=== PATIENT | male | born 1965 | race African-American/Black ===

== ENCOUNTER 2020-01-31 15:26 | Emergency (ER) | payer MEDICAID, SELFPAY ==
[2020-01-31 16:05] VITALS: BP 148/94; PULSE 79; RESP 16; TEMP 36.6; O2SAT 98; BMI 22.4
--- NOTE | 2020-01-31 16:17 | ED_ITS ---
HPI - General Adult General Chief complaint: General Medical Stated complaint: med refill Time Seen by Provider: 01/31/20 16:07 Source: patient Mode of arrival: ambulatory History of Present Illness HPI narrative: 54-year-old male presenting to ED for trazodone refill. Reports was recently in detox, now at [facility], does not have doctors around here, last filled at [place] 1 month ago. Per EMR last filled 12/04/2019. Reports last dose taken yesterday. Denies SI/HI. Denies alcohol or drug use Onset (ago): day(s) Related Data Previous Rx's Medication Instructions Recorded trazodone 50 mg PO BEDTIME 30 Days #30 tab 01/31/20 Allergies Allergy/AdvReac Type Severity Reaction Status Date / Time No Known Allergies Allergy Verified 01/31/20 16:17 Review of Systems Review of Systems: Constitutional: No Weight loss, No Fever, No Chills Cardiovascular: No Chest Pain, No SOB Respiratory: No Cough Skin: No Skin Lesions, No rash Psych: No SI/HI/ETOH/illicit drug use Yes all other systems are reviewed and are negative [facility] Past Medical History Attestation statement: The following information was validated with the patient. Medical History (Updated 01/31/20 @ 16:18 by NICKO Langford) No known health problems Social History Social History Alcohol intake: former Smoked in Last 30 Days: No Use of substances other than those prescribed or required for medical reasons: No Advance Directives: No Advance Directives Information Provided: Yes Physical Exam Vital Signs: Vital Signs: Last Vital Signs Temp 97.9 F 01/31/20 16:05 Pulse 79 01/31/20 16:05 Resp 16 01/31/20 16:05 BP 148/94 H 01/31/20 16:05 Pulse Ox 98 01/31/20 16:05 Body Mass Index 22.4 Const: General: cooperative and healthy appearing Orienta tion/consciousness: patient oriented x3 Limitations: no limitations HENMT: Head: Yes normal to inspection Ears: hearing grossly normal bilaterally General nose exam: Normal external nose present Face and sinus: Yes normal facial exam Eyes: General: appearance normal, both eyes and all related structures EOM: EOMs intact bilaterally Neck: Neck: Yes normal visual inspection Resp: Effort & Inspection: normal respiratory effort Skin: Rashes: no rashes Wounds: no wounds Neuro: General: patient oriented x3 Gait exam (Neuro): Normal gait present Extrem: General: Yes normal to inspection Discharge Plan Discharge Clinical Impression: Medication refill Patient Disposition: Home, Self-Care Instructions: Medicine Refill (ED) Additional Instructions: Continue taking previously prescribed dosage of trazodone Follow-up with [facility] Room for establishment with a primary care doctor/psychiatrist/psychologist Prescriptions: New trazodone 50 mg tablet 50 mg PO BEDTIME 30 Days Qty: 30 RF: 0 Referrals: Erin Harrison MD [Physician] - 2 days
== END 2020-01-31 17:00 | disposition home or self-care (01) ==
PROVIDERS: Emergency Provider Emergency Medicine
DX: Z76.0 Encounter for issue of repeat prescription (principal); Z87.891 Personal history of nicotine dependence; Z79.899 Other long term (current) drug therapy
CPT/HCPCS: 99282; 99284

== ENCOUNTER 2022-02-17 09:15 | Emergency (ER) | payer MEDICAID, SELFPAY ==
--- NOTE | ~2022-02-17 | CT_ITS ---
EXAMINATION: CT HEAD WITHOUT CONTRAST CLINICAL INFORMATION: Seizure. COMPARISON: No relevant prior imaging. TECHNIQUE: Contiguous axial imaging was performed from the skull base to vertex without intravenous administration of contrast. This CT examination was performed using dose optimization techniques as appropriate, variously including the following: *Automated exposure control *Adjustment of mA and/or kV according to patient size (this includes techniques or standardized protocols for targeted exams where dose is matched to indication/reason for exam; i.e. extremities or head) *Use of iterative reconstruction technique DLP: 673 mGy-cm FINDINGS: There is no acute intracranial hemorrhage or abnormal extra-axial collection. No intracranial mass effect or midline shift. Lateral and third ventricles are normal. No hydrocephalus. Vera-white matter differentiation is grossly preserved and there is no evidence of acute territorial infarct. The calvarium and skull base are intact. Mastoid air cells and middle ear cavities are well aerated. Mild paranasal sinus disease primarily affecting the ethmoid air cells CT/CT head/brain wo IV con IMPRESSION: Unremarkable CT scan of the head. No evidence of acute territorial infarct or hemorrhage.
[2022-02-17 09:24] VITALS: BP 143/102; PULSE 117; O2SAT 96
--- NOTE | 2022-02-17 09:43 | ECG_ITS ---
Test Reason : seizure Blood Pressure : / mmHG Vent. Rate : 092 BPM Atrial Rate : 092 BPM P-R Int : 154 ms QRS Dur : 096 ms QT Int : 364 ms P-R-T Axes : 072 029 035 degrees QTc Int : 450 ms Normal sinus rhythm Normal ECG No previous ECGs available Referred By: Juan Ng Electronically Signed By:KEESHA BERKOWITZ
[2022-02-17 09:45] VITALS: BP 144/102; PULSE 101; RESP 18; TEMP 36.4; O2SAT 93; BMI 21.8
--- NOTE | 2022-02-17 09:55 | ED_ITS ---
HPI - Seizure General Chief Complaint: Seizure Stated Complaint: SZ,?WITHDRAWAL FROM [facility] PER EMS Time Seen by Provider: 02/17/22 09:31 Source: patient and EMS Mode of arrival: EMS Limitations: no limitations History of Present Illness HPI Narrative: This is a 56 years old male with history of alcohol abuse presented to the emergency room via ambulance after a seizure, he is awake and alert now he admits drinking alcohol. The denies any fever chills MD complaint: seizure Onset (ago): hour(s) (1) Description of Episode: tonic-clonic movement Witnessed: No Trauma: No Seizure History: No Possible Precipitating Event: alcohol withdrawal Associated symptoms: denies other symptoms Related Data Previous Rx's Medication Instructions Recorded trazodone 50 mg tablet 50 mg PO BEDTIME 30 days #30 tabs 01/31/20 chlordiazepoxide HCl 25 mg capsule 25 mg PO Q8-12H PRN alcohol 02/17/22 withdrawal #5 caps Allergies Allergy/AdvReac Type Severity Reaction Status Date / Time No Known Allergies Allergy Verified 01/31/20 16:17 Review of Systems Constitutional: Constitutional: Reports no additional constitutional complaints ENT: Reports system reviewed and no additional complaints, except as documented Cardiovascular: Cardiovascular: Reports no additional cardiovascular complaints Musculoskeletal: Musculoskeletal: Reports no additional musculoskeletal complaints [facility] Past Medical History [facility] Narrative: All use disorder Medical History No known health problems Social History Social History Alcohol intake: current Alcohol intake frequency: 3 or more drinks per day Alcohol type: hard liquor Smoked in Last 30 Days: Yes Use of substances other than those prescribed or required for medical reasons: Yes Substance Use Type: Marijuana Substance Use Frequency: Occasionally Advance Directives: No Physical Exam Vital Signs: Vital Signs: Last Vital Signs Temp 97.5 F 02/17/22 09:45 Pulse 82 02/17/22 14:06 Resp 20 02/17/22 14:06 BP 159/103 H 02/17/22 14:06 Pulse Ox 96 02/17/22 14:06 O2 Del Method 02/17/22 14:06 BMI result Body Mass Index 21.8 Const: General: cooperative Nutritional Appearance: average body habitus Orientation/consciousness: patient oriented x3 HEENT: Head: Yes normal to inspection General nose exam: Normal external nose present Face and sinus: Yes normal facial exam Mouth: Normal oral and palatal mucosa present Throat: Yes posterior oropharynx normal Neck: Neck: Yes normal visual inspection Chest: Chest palpation & inspection: normal inspection of the chest Resp: Effort & Inspection: normal respiratory effort and able to speak in complete sentences Auscultation: clear to auscultation bilaterally Cardio: Jugular venous distension: no JVD Rate: regular rate Rhythm: regular rhythm GI: Inspection: Yes normal to inspection Palpation (GI): Soft to palpation, not firm and nontender Skin: General skin exam: no rashes or lesions noted and elasticity normal Neuro: General: patient oriented x3 Course Reevaluation(s) Reevaluation #1: Asymptomatic he is not tachycardic he is not diaphoretic was seen by care team and he refused detox. At this point will discharge the patient home with detox least should he changes mind, I will give him a 3 or 4 tablets of Librium Medications Administered Discontinued Medications Generic Name Dose Route Start Last Admin Trade Name Budq PRN Reason Stop Dose Admin Chlordiazepoxide HCl 50 mg 02/17/22 13:58 02/17/22 14:13 Chlordiazepoxide Hcl 25 Mg Capsule PO 02/17/22 13:59 50 mg ONCE ONE Administration Sodium Chloride 1,000 mls @ 999 mls/hr 02/17/22 09:45 02/17/22 13:57 Ns IVCONT 02/17/22 10:45 Infused .Q1H1M LUÍS Infusion Magnesium Sulfate/Dextrose 1 gm in 100 mls @ 100 mls/hr 02/17/22 10:40 02/17/22 12:32 Magnesium Sulfate/D5w IV 02/17/22 11:39 Infused ONCE ONE Infusion Midazolam HCl 1 mg 02/17/22 09:42 02/17/22 10:13 Midazolam Hcl/Pf 2 Mg/2 Ml Vial IVPUSH 02/17/22 09:43 1 mg ONCE ONE Administration Medical Decision Making Admission/Observation Consideration of admission/observation: Escalation of care including admiss ion/observation considered Lab Data MDM Lab Attestation statement: I reviewed the patient's lab results. Result Diagrams: 02/17/22 10:02 02/17/22 10:02 Labs: Lab Results 02/17/22 02/17/22 02/17/22 Range/Units 10:02 10:02 10:02 WBC 6.4 (4.8-10.8) X10*3/uL RBC 4.06 L (4.60-5.80) X10*6/uL Hgb 13.3 L (14.0-18.0) g/dl Hct 38.0 L (42.0-52.0) % MCV 93.6 (80.0-98.0) fL MCH 32.8 (27.0-33.0) pg MCHC 35.0 (31.0-36.0) g/dl RDW 12.9 (11.0-16.0) % Plt Count 88 L (160-400) X10*3/uL MPV 10.1 (9.4-12.4) fL Immature Gran % (Auto) 0.5 H (0.0-0.4) % Neut % (Auto) 75.7 H (45-73) % Lymph % (Auto) 11.8 L (20-40) % [place] % (Auto) 10.0 (2-11) % Eos % (Auto) 1.2 (0-4) % Baso % (Auto) 0.8 (0-2) % Lymph # (Auto) 0.8 L (1.2-4.9) X10*3/uL [place] # (Auto) 0.6 (0.1-1.2) X10*3/uL Eos # (Auto) 0.1 (0.0-0.4) X10*3/uL Baso # (Auto) 0.1 (0.0-0.2) X10*3/uL Abs Immat Gran (auto) 0.03 (0.00-0.03) X10*3/uL Absolute Neuts (auto) 4.9 (2.0-8.3) x10*3/uL Absolute Nucleated RBC 0.000 (0.0-0.012) X10*3/uL Nucleated RBC % (auto) 0.0 (0.0-0.2) /100WBC Sodium 138 (135-145) mmol/L Potassium 3.8 (3.3-5.1) mmol/L Chloride 103 (96-108) mmol/L Carbon Dioxide 24 (22-29) mmol/L Anion Gap 15 (12-20) BUN 6 L (9-16) mg/dL Creatinine 0.91 (0.5-1.4) mg/dL Estim Creat Clear Calc 97.6 Estimated GFR > 60 Random Glucose 123 H (60-115) mg/dL Calcium 9.1 (8.4-10.2) mg/dL Magnesium 1.1 L* (1.6-2.6) mg/dL Total Bilirubin 1.8 H (0.0-1.0) mg/dL AST 128 H (5-37) U/L ALT 46 H (0-40) U/L Alkaline Phosphatase 75 (39-117) U/L Total Protein 7.3 (6.5-8.0) g/dL Albumin 4.1 (3.5-5.0) g/dL Urine Color Urine Appearance Urine pH (5.0-9.0) Ur Specific [place] (1.005-1.025) Urine Protein (Neg-Trace) mg/dL Urine Glucose (UA) (Negative) mg/dL Urine Ketones (Negative) mg/dL Urine Blood (Negative) Urine Nitrite (Negative) Ur Leukocyte Esterase (Negative) Urine RBC (0-2) /HPF Urine WBC (0-5) /HPF Ur Squamous Epith Cells (0-2) /HPF Urine Bacteria (None Seen) Hyaline Casts (0-2) /LPF Ethyl Alcohol mg/dL COVID-19 (BRUNA) Negative (Negative) COVID-19 Clin Com See Note 02/17/22 02/17/22 Range/Units 10:02 12:32 WBC (4.8-10.8) X10*3/uL RBC (4.60-5.80) X10*6/uL Hgb (14.0-18.0) g/dl Hct (42.0-52.0) % MCV (80.0-98.0) fL MCH (27.0-33.0) pg MCHC (31.0-36.0) g/dl RDW (11.0-16.0) % Plt Count (160-400) X10*3/uL MPV (9.4-12.4) fL Immature Gran % (Auto) (0.0-0.4) % Neut % (Auto) (45-73) % Lymph % (Auto) (20-40) % [place] % (Auto) (2-11) % Eos % (Auto) (0-4) % Baso % (Auto) (0-2) % Lymph # (Auto) (1.2-4.9) X10*3/uL [place] # (Auto) (0.1-1.2) X10*3/uL Eos # (Auto) (0.0-0.4) X10*3/uL Baso # (Auto) (0.0-0.2) X10*3/uL Abs Immat Gran (auto) (0.00-0.03) X10*3/uL Absolute Neuts (auto) (2.0-8.3) x10*3/uL Absolute Nucleated RBC (0.0-0.012) X10*3/uL Nucleated RBC % (auto) (0.0-0.2) /100WBC Sodium (135-145) mmol/L Potassium (3.3-5.1) mmol/L Chloride (96-108) mmol/L Carbon Dioxide (22-29) mmol/L Anion Gap (12-20) BUN (9-16) mg/dL Creatinine (0.5-1.4) mg/dL Estim Creat Clear Calc Estimated GFR Random Glucose (60-115) mg/dL Calcium (8.4-10.2) mg/dL Magnesium (1.6-2.6) mg/dL Total Bilirubin (0.0-1.0) mg/dL AST (5-37) U/L ALT (0-40) U/L Alkaline Phosphatase (39-117) U/L Total Protein (6.5-8.0) g/dL Albumin (3.5-5.0) g/dL Urine Color Yellow Urine Appearance Clear Urine pH 7.5 (5.0-9.0) Ur Specific [place] 1.015 (1.005-1.025) Urine Protein 30 (1+) H (Neg-Trace) mg/dL Urine Glucose (UA) Negative (Negative) mg/dL Urine Ketones Trace (Negative) mg/dL Urine Blood Trace H (Negative) Urine Nitrite Negative (Negative) Ur Leukocyte Esterase Trace H (Negative) Urine RBC 0-2 (0-2) /HPF Urine WBC 6-10 H (0-5) /HPF Ur Squamous Epith Cells 0-2 (0-2) /HPF Urine Bacteria None Seen (None Seen) Hyaline Casts 0-2 (0-2) /LPF Ethyl Alcohol < 10 mg/dL COVID-19 (BRUNA) (Negative) COVID-19 Clin Com Independent Interpretation I performed an independent interpretation of an: EKG (Normal sinus rhythm rate is [address]-T changes) Radiology Impression Discussion of test interpretation with radiology: I have reviewed the radiologist's reading. Radiologist Impression: DLP: 673 mGy-cm FINDINGS: There is no acute intracranial hemorrhage or abnormal extra-axial collection. No intracranial mass effect or midline shift. Lateral and third ventricles are normal. No hydrocephalus. Vera-white matter differentiation is grossly preserved and there is no evidence of acute territorial infarct. The calvarium and skull base are intact. Mastoid air cells and middle ear cavities are well aerated. Mild paranasal sinus disease primarily affecting the ethmoid air cells ? CT/CT head/brain wo IV con IMPRESSION: Unremarkable CT scan of the head. No evidence of acute territorial infarct or hemorrhage. Dictated By: Malvin Ford MD Signed By: <Electronically signed by Malvin Ford MD in OV> 02/17/22 1012 Independent Historian Clinical information obtained from an independent historian. History obtained from or confirmed by: Other (signiificative other) Discharge Plan Discharge Clinical Impression: Alcohol withdrawal seizure, Hypomagnesemia Patient Disposition: Home, Self-Care Instructions: Alcohol Withdrawal (ED) Additional Instructions: Follow-up with your primary care physician return if you worse any concern you refused detox we sent 5 tablets or Librium a to the pharmacy to help you out in the next 48 hours Prescriptions: New chlordiazepoxide HCl 25 mg capsule 25 mg PO Q8-12H PRN (Reason: alcohol withdrawal) Qty: 5 0RF No Action trazodone 50 mg tablet 50 mg PO BEDTIME 30 Days Qty: 30 0RF Referrals: Physician,None [Primary Care Provider] - 2 days Interventions: ED Discharge Assessment Last Done: 02/17/22 15:02 Discharge Date/Time: 02/17/22 15:03
[2022-02-17 10:03] VITALS: BP 146/100; PULSE 95; RESP 18; O2SAT 94
[2022-02-17 10:07] LABS: MANUAL DIFF FLAG NO
[2022-02-17 10:12] LABS: Basophils Absolute Auto 0.1 X10*3/uL (0.0-0.2); Basophils Percent Auto 0.8 % (0-2); Eosinophils Absolute Auto 0.1 X10*3/uL (0.0-0.4); Eosinophils Percent Auto 1.2 % (0-4); Hemoglobin 13.3 g/dl (14.0-18.0); Imm Gran Abs Auto 0.03 X10*3/uL (0.00-0.03); Imm Gran Pct Auto 0.5 % (0.0-0.4); Lymphocytes Absolute Auto 0.8 X10*3/uL (1.2-4.9); Lymphocytes Percent Auto 11.8 % (20-40); Mean Corpuscular Hemoglobin 32.8 pg (27.0-33.0); Mean Corpuscular Volume 93.6 fL (80.0-98.0); Monocytes Absolute Auto 0.6 X10*3/uL (0.1-1.2); Neutrophils Absolute Auto 4.9 x10*3/uL (2.0-8.3); Neutrophils Percent Auto 75.7 % (45-73); Red Blood Count 4.06 X10*6/uL (4.60-5.80); Red Cell Distribution Width 12.9 % (11.0-16.0); White Blood Count 6.4 X10*3/uL (4.8-10.8)
[2022-02-17] MEDS: 0.9 % Sodium Chloride 1,000 ML 999 ML IVCONT (10:13)
[2022-02-17] MEDS: Midazolam HCl/PF 2 MG/2 ML VIAL 1 MG IVPUSH (10:13)
[2022-02-17 10:21] LABS: COVID-19 Test Negative (Negative); IDNOW Serial# 16C4AD1C
[2022-02-17 10:23] LABS: Ethanol < 10 mg/dL
[2022-02-17 10:41] LABS: Alanine Aminotransferase 46 U/L (0-40); Albumin Level 4.1 g/dL (3.5-5.0); Alkaline Phosphatase 75 U/L (39-117); Anion Gap 15 (12-20); Aspartate Amino Transferase 128 U/L (5-37); Blood Urea Nitrogen 6 mg/dL (9-16); Calcium 9.1 mg/dL (8.4-10.2); Carbon Dioxide 24 mmol/L (22-29); Chloride 103 mmol/L (96-108); Creatinine Clr Calc Pharmacy 97.6; Estimated Glomerular Filt Rate > 60; Glucose Random 123 mg/dL (60-115); Magnesium 1.1 mg/dL (1.6-2.6); Potassium 3.8 mmol/L (3.3-5.1); Sodium 138 mmol/L (135-145); Total Protein 7.3 g/dL (6.5-8.0)
[2022-02-17 10:54] LABS: Bilirubin Total 1.8 mg/dL (0.0-1.0)
[2022-02-17 10:57] LABS: Mean Platelet Volume 10.1 fL (9.4-12.4); Platelet Count 88 X10*3/uL (160-400)
[2022-02-17] MEDS: Magnesium Sulfate/D5W 1 GM/100 ML PIGGYBACK IV (11:24)
--- NOTE | 2022-02-17 11:50 | PC.NURSE ---
pt a&ox3, reporting blood in urine, given urinal for urine sample, medicated per provider order, ivf running. pt reporting that he is not interested in detox, however partner would like him to go. no new orders at this time.
[2022-02-17 12:00] VITALS: BP 150/103; PULSE 84; RESP 14; O2SAT 95
[2022-02-17 12:41] LABS: Appearance Urine Clear; Color Urine Yellow; Glucose Urine UA Negative (Negative); Leukocyte Esterase Urine Trace (Negative); Nitrite Urine Negative (Negative); PH 7.5 (5.0-9.0); Specific Gravity - Urine 1.015 (1.005-1.025); UMIC TRIGGER UACC YES; Urine Blood Trace (Negative); Urine Ketones Trace mg/dL (Negative); Urine Protein 30 (1+) mg/dL (Neg-Trace)
[2022-02-17 12:43] LABS: Bacteria Urine None Seen (None Seen); Hyaline Casts Urine 0-2 /LPF (0-2); RBC Urine 0-2 /HPF (0-2); Squamous Epithelial Cell Urine 0-2 /HPF (0-2); UACC Culture Trigger YES
--- NOTE | 2022-02-17 13:21 | MHC.CM.ED ---
Received notification from MATTHEW Winn that patient is requesting to complete HCP. Met with patient. HCP completed, signed witnessed. Original given to patient. Copy placed in chart. Continue to monitor for d/c needs.
[2022-02-17 14:06] VITALS: BP 159/103; PULSE 82; RESP 20; O2SAT 96
[2022-02-17] MEDS: chlordiazePOXIDE HCl 25 MG CAPSULE 50 MG PO (14:13)
--- NOTE | 2022-02-17 14:57 | MHC.RECOVRN ---
Met with pt and significant other in ED3 to discuss alcohol use. Pt familiar with t/w from previous encounters. SO states I've gotten him down to 4 shots and a couple beers, he had been drinking a sleeve and 6 or 7 beers. Discussed risks associated with reducing and stopping drinking at home. Pt does report hx seizures and acknowledges dangers. Pt had been in recovery for two years with recurrence last [place]. Pt had been to [facility], [facility], and other programs which helped maintain recovery. Discussed ATS, pt declines referrals at this time. Pt dismissive of recovery resources and supports, SO very interested. Educated both regarding medications available for AUD, pt has not tried any in the past. Pt is not interested at this time in connecting with [facility] provider. Pt declines outpatient support at this time. Both deny other questions and concerns, pt requesting to dc home. RN and provider aware.
== END 2022-02-17 15:03 | disposition home or self-care (01) ==
PROVIDERS: Emergency Provider Emergency Medicine
DX: R56.9 Unspecified convulsions (principal); F10.239 Alcohol dependence with withdrawal, unspecified; Y90.0 Blood alcohol level of less than 20 mg/100 ml; Z20.822 Contact with and (suspected) exposure to COVID-19; Z79.899 Other long term (current) drug therapy
CPT/HCPCS: 36415; 70450; 80053; 81001; 82077; 83735; 85025; 87086; 87635; 93005; 96361; 96374; 96375; 99284; 99285; J2250; J3475

== ENCOUNTER 2022-04-14 20:20 | Emergency (ER) | payer MEDICAID, SELFPAY ==
--- NOTE | ~2022-04-14 | CT_ITS ---
EXAMINATION: CTA NECK WITH CONTRAST (STROKE) CTA BRAIN WITH CONTRAST (STROKE) CLINICAL INFORMATION: Suspect acute stroke. Assess for major vessel occlusion. Please call report. COMPARISON: CT head dated 02/17/2022 TECHNIQUE: CTA of the head and neck was performed in the axial plane from the mediastinum to the skull vertex using 70 mL Omnipaque 350 intravenous contrast. Additional reformatted multiplanar images including maximum intensity projection MIP images are generated on the CT workstation. This CT examination was performed using dose optimization techniques as appropriate, variously including the following: *Automated exposure control *Adjustment of mA and/or kV according to patient size (this includes techniques or standardized protocols for targeted exams where dose is matched to indication/reason for exam; i.e. extremities or head) *Use of iterative reconstruction technique DLP: 1531 mGy-cm FINDINGS: The degree of stenosis determined by criteria similar to NASCET. SOFT TISSUES AND LUNG APICES: No overt abnormality is appreciated. CTA NECK: The aortic arch has a classic configuration and the major arch vessel origins are non-stenotic. The vertebral arteries are co-dominant and both vertebral origins are widely patent. Both common carotid arteries are normal in course and caliber. Both internal carotid arteries demonstrate mild atherosclerotic plaque without significant stenosis. CTA HEAD: There is normal opacification of the major intracranial vessels. No acute proximal large vessel occlusion, focal flow-limiting stenosis, or saccular intracranial aneurysm is identified. No abnormal parenchymal enhancement or regional oligemia is visualized. HEAD (delayed): No intracranial mass, intercerebral edema, hemorrhage, or midline shift is evident. The ventricles and sulci are stable in size and configuration. No extra-axial collections are appreciated. Mild patchy subcortical and periventricular white matter low-attenuation changes related to small vessel ischemic disease. No pathologic intracranial enhancement. Dural sinuses are patent. The paranasal sinuses are well-aerated and clear. CT/CT angio head neck stroke IMPRESSION: * No large vessel occlusion or hemodynamically significant stenosis within the intracranial or extracranial arterial vasculature. * Mild chronic white matter small vessel ischemic changes. This critical result was discussed with NICKO Rose at 04/14/2022 10:53 PM and it was ascertained that the content and urgency of the report was understood at the time of direct communication.
--- NOTE | ~2022-04-14 | CT_ITS ---
EXAMINATION: NONCONTRAST HEAD CT NONCONTRAST MAXILLOFACIAL CT INDICATION INFORMATION: Head trauma COMPARISON: 02/17/2022 TECHNIQUE: Separate noncontrast CT examinations of the head and maxillofacial bones were performed. Coronal and sagittal images were created for each examination at the technologist workstation. This CT examination was performed using dose optimization techniques as appropriate, variously including the following: *Automated exposure control *Adjustment of mA and/or kV according to patient size (this includes techniques or standardized protocols for targeted exams where dose is matched to indication/reason for exam; i.e. extremities or head) *Use of iterative reconstruction technique DLP: 1169 mGy-cm FINDINGS: Head: There is no evidence of acute intracranial hemorrhage or territorial infarction. No abnormal mass effect or midline shift is seen. Vera to white matter differentiation is well preserved. No extra-axial fluid collections are identified. No hydrocephalus. No significant volume loss. Patchy periventricular and deep white matter hypoattenuation is consistent with mild small vessel ischemic changes. Thin central forehead scalp hematoma with trace subgaleal hematoma. Underlying calvarium intact. The mastoid air cells are well aerated. Maxillofacial: No acute maxillofacial fractures are seen. The frontal, maxillary, ethmoid, and sphenoid sinuses are well aerated. The uncinate process is normal bilaterally. The infundibula and middle meati are patent. The nasal septum is midline. The orbits demonstrate a normal appearance bilaterally. The globes are intact, and there are no suspicious findings to suggest retrobulbar hemorrhage. Malleable plate and screws present along the left mentum. Right temporomandibular joint intact. There is chronic anterior dislocation of a dysmorphic and flattened left mandibular condyle which resides on the anterior temporal eminence, likely healed fracture deformity of the left mandibular condyle. Periapical lucencies about the roots of the left maxillary and mandibular third molars, left maxillary first premolar and left mandibular lateral incisor. CT/CT facial bones wo IV con IMPRESSION: * No acute intracranial findings. * No acute maxillofacial fracture. 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 * Periapical lucencies about the left maxillary and mandibular third molars, left maxillary first premolar and left mandibular lateral incisor.
--- NOTE | ~2022-04-14 | XR_ITS ---
EXAMINATION: XR CHEST CLINICAL INFORMATION: Fall with chest trauma COMPARISON: None TECHNIQUE: Frontal view of the chest was obtained. FINDINGS: Lungs are hypoinflated. Heart size within normal limits. Plate and screw devices partially visualized left humerus. No rib fractures. No pneumothorax. XR/XR chest 1V IMPRESSION: No acute pulmonary disease.
[2022-04-14 21:10] VITALS: BP 123/79; PULSE 95; RESP 20; TEMP 37; O2SAT 98; BMI 22.4
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
--- NOTE | 2022-04-14 21:45 | PC.NURSE ---
Pt eye has a small laceration with no bleeding noted at this time. Perrla is intact. Will notify MATTHEW Sheldon
--- NOTE | 2022-04-14 22:00 | PC.NURSE ---
when patients mask removed patient noted to have a right sided facial droop while at rest, smile does appeared symmetrical when prompted to smile. at bedside states that the facial droop as well as the unsteady gait have been going for approximately one month and started after his seizure.
[2022-04-14 22:14] LABS: MANUAL DIFF FLAG NO
[2022-04-14 22:16] LABS: Basophils Absolute Auto 0.1 X10*3/uL (0.0-0.2); Basophils Percent Auto 0.8 % (0-2); Eosinophils Absolute Auto 0.1 X10*3/uL (0.0-0.4); Eosinophils Percent Auto 1.2 % (0-4); Hemoglobin 14.5 g/dl (14.0-18.0); Imm Gran Abs Auto 0.01 X10*3/uL (0.00-0.03); Imm Gran Pct Auto 0.1 % (0.0-0.4); Lymphocytes Absolute Auto 2.2 X10*3/uL (1.2-4.9); Lymphocytes Percent Auto 30.4 % (20-40); Mean Corpuscular HGB Conc 34.5 g/dl (31.0-36.0); Mean Corpuscular Hemoglobin 32.4 pg (27.0-33.0); Mean Platelet Volume 8.7 fL (9.4-12.4); Monocytes Absolute Auto 0.7 X10*3/uL (0.1-1.2); Neutrophils Absolute Auto 4.3 x10*3/uL (2.0-8.3); Neutrophils Percent Auto 58.5 % (45-73); Platelet Count 178 X10*3/uL (160-400); Red Blood Count 4.47 X10*6/uL (4.60-5.80); Red Cell Distribution Width 12.8 % (11.0-16.0); White Blood Count 7.4 X10*3/uL (4.8-10.8)
[2022-04-14 22:27] LABS: Prothrombin Time 11.3 SEC (10.0-13.1)
[2022-04-14 22:31] LABS: COVID-19 Test Negative (Negative); IDNOW Serial# 6674DD1D
[2022-04-14 22:35] LABS: Alanine Aminotransferase 25 U/L (0-40); Albumin Level 4.3 g/dL (3.5-5.0); Alkaline Phosphatase 72 U/L (39-117); Anion Gap 19 (12-20); Aspartate Amino Transferase 67 U/L (5-37); Bilirubin Total 1.2 mg/dL (0.0-1.0); Blood Urea Nitrogen 5 mg/dL (9-16); Calcium 9.3 mg/dL (8.4-10.2); Carbon Dioxide 25 mmol/L (22-29); Chloride 107 mmol/L (96-108); Creatinine Clr Calc Pharmacy 88.8; Estimated Glomerular Filt Rate > 60; Ethanol 441 mg/dL; Glucose Random 95 mg/dL (60-115); Magnesium 1.8 mg/dL (1.6-2.6); Potassium 4.8 mmol/L (3.3-5.1); Sodium 146 mmol/L (135-145); Total Protein 7.9 g/dL (6.5-8.0)
--- NOTE | 2022-04-14 22:38 | PC.NURSE ---
This RN alerted by CT that pt was feeling itchy after receiving IV contrast. Per histologic technician, pt was also sneezing. Maryann MAHARAJ aware, verbal order for Benadryl 50 mg of IVP. Primary RN aware.
[2022-04-14] MEDS: iohexoL 350 MG/ML 100 ML INFUS..BTL IV (22:39)
--- NOTE | 2022-04-14 22:43 | PC.NURSE ---
pt observed walking to and from bathroom. pt speaking in full complete sentances, managing secretions without difficulty. moved from stretcher to CT table without assistance.
[2022-04-14 22:46] VITALS: BP 137/94; PULSE 95; RESP 20; TEMP 37.3; O2SAT 94
--- NOTE | 2022-04-14 22:48 | ED.GENADULT ---
HPI - General Adult General Chief complaint: Eye Problems Stated complaint: Eye injury Time Seen by Provider: 04/14/22 21:41 Source: patient Mode of arrival: ambulatory Limitations: other (Patient intoxicated, poor historian) History of Present Illness HPI narrative: This is a 56-year-old male history of alcohol use disorder and alcohol withdrawal seizures presenting to the emergency department acute alcohol intoxication and fall prior to arrival. According to patient he is here because he fell while wrestling with his son in sustained a small superficial laceration to the lateral aspect of eye, he tells me he just fell once. When he fell he tells me did not hit his head or lose consciousness, is not on blood thinners. He tells me he is feeling fine. He reports drinking today tells me he has had 3 beers just prior to arrival, current daily drinker, tells me drinks a few beers a day. According to patient's is at the bedside patient's son who is with him reports he has been drinking all day, sustained 3 falls, and during 1 of the falls he is unsure if he lost consciousness or not. Patient poor historian telling me he is okay and he does on a be here. tells me patient is here because she for some to come in. Denies chest pain, shortness of breath, nausea, vomiting, headache, vision changes, dizziness, weakness. Patient altered/intoxicated therefore difficult to obtain NIH stroke scale. GCS of 15 on arrival. Related Data Previous Rx's Medication Instructions Recorded trazodone 50 mg tablet 50 mg PO BEDTIME 30 days #30 tabs 01/31/20 chlordiazepoxide HCl 25 mg capsule 25 mg PO Q8-12H PRN alcohol 02/17/22 withdrawal #5 caps Allergies Allergy/AdvReac Type Severity Reaction Status Date / Time Iodinated Contrast Media Allergy Cough Verified 04/14/22 23:50 [IV Contrast Dye] Review of Systems Review of Systems: Constitutional : No Weight loss, No Fever, No Chills, No Fatigue, No Malaise ENT/Mouth : No sore throat, No Rhinorrhea Eyes: No Eye Pain, No Swelling, No Redness Cardiovascular : No Chest Pain, No SOB, No Dyspnea on Exertion, No Orthopnea, No Edema, No Palpitations Respiratory : No Cough, No Sputum, No Wheezing Gastrointestinal : No Nausea, No Vomiting, No Diarrhea, No Constipation, No abdominal Pain, No Hematochezia, No Melena Genitourinary : No Dysuria, No Urinary Frequency, No Hematuria, Musculoskeletal : No joint pain, No Myalgias, No Joint Swelling Skin : No Skin Lesions, No rash, + laceration Neuro : No Weakness, No Numbness, No Dizziness, No Headache Psych : No Anxiety/Panic, No Depression All other systems reviewed and are negative Yes all other systems are reviewed and are negative [facility] Past Medical History Attestation statement: The following information was validated with the patient. Source: old records reviewed and nursing notes reviewed Medical History No known health problems Social History Social History Alcohol intake: current Alcohol intake frequency: 3 or more drinks per day Alcohol type: hard liquor Substance Use Type: Marijuana Advance Directives: No Advance Directives Information Provided: No Physical Exam ED Vital Signs: Vital Signs - 24 hr 04/14/22 21:10 04/14/22 22:46 04/14/22 23:46 Temperature 98.6 F 99.1 F Pulse Rate 95 95 90 Respiratory Rate 20 20 Blood Pressure 123/79 137/94 H Pulse Oximetry 98 94 89 L Oxygen Delivery Method Room Air Room Air Room Air Oxygen Flow Rate 04/14/22 23:47 04/15/22 00:05 Temperature Pulse Rate 83 Respiratory Rate 16 Blood Pressure 112/77 Pulse Oximetry 97 98 Oxygen Delivery Method Nasal Cannula Nasal Cannula Oxygen Flow Rate 2 2 BMI result Body Mass Index 22.4 Vital signs stable Appearance: Alert.? Oriented X3.? No acute distress.? Patient smells like alcohol. Head: Normocephalic, atraumatic, no step-offs or deformities Eyes: Pupils equal, round and reactive to light.? Extraocular movements intact and pain-free however there is rapid rhythmic horizontal nystagmus noted. Neck: Normal inspection.? Neck supple.? CVS: Rapid rate normal rhythm likely sinus tachycardia.? Pulses normal.? Respiratory: No respiratory distress.? Breath sounds normal.? Abdomen: Soft and nontender.? Skin: Skin warm and dry.? Normal skin color.? Normal skin turgor.?+ 1 cm linear laceration to the lateral aspect of left eye. Extremities: No lower extremity edema.? No calf ttp. Global weakness Neuro: Oriented X 3.? No motor deficit.? No sensory deficit. CN 2-12 intact . Patient ataxic to upper extremities difficulty performing malrut-rb-hcyg, mxom-mi-rmqv. Patient on steady on his feet. Course Reevaluation(s) Reevaluation #1: Patient's CBC appears to be around his baseline, no acute findings. Chemistry with slightly elevated sodium likely secondary to poor p.o. intake/alcohol abuse. Patient's bilirubin chronically elevated however today lower than his baseline . Patient's ammonia level within normal limits. Unlikely his hepatic encephalopathy. Patient's ethanol level 441 likely contributing to patient's presentation. Patient is COVID negative. Chest x-ray no acute findings. CT of head with no acute intracranial findings. No acute maxillofacial fracture noted on CT of face. 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 CTA unremarkable. No signs of large occlusion. To note patient was given Benadryl when he had a CT scan, after getting IV contrast he began to sneeze and tells me he felt itchy. IV Benadryl was given 50 mg with good relief. Patient is very intoxicated. This patient will be signed out to night doctor doctors 80 pending re-evaluation and disposition. Time: 01:12 Reevaluation #2: Patient and patient's would like him to go to detox except does not want to go to [facility]. Time: 01:13 Medications Administered Discontinued Medications Generic Name Dose Route Start Last Admin Trade Name Katie PRN Reason Stop Dose Admin Diphenhydramine HCl 50 mg 04/14/22 22:38 04/14/22 22:54 Diphenhydramine Hcl 50 Mg/Ml Vial IVPUSH 04/14/22 22:39 50 mg ONCE ONE Administration Thiamine HCl 200 mg/ Sodium 102 mls @ 204 mls/hr 04/14/22 22:38 04/14/22 23:48 Chloride IV 04/14/22 23:07 Infused ONCE ONE Infusion Iohexol 100 ml 04/14/22 22:38 04/14/22 22:39 Iohexol 350 Mg/Ml 100 Ml Infus..Btl IV 04/14/22 22:39 70 ml ONCE ONE Administration Medical Decision Making Medical Decision Making [facility] Narrative: 56-year-old male presents status post multiple falls, currently intoxicated was drinking prior to arrival. Difficult to obtain NIH stroke scale however, GCS of 15. On physical examination patient smells like alcohol. Breath sounds clear. Rapid regular rhythm likely sinus tachycardia. Abdomen exam benign. Extraocular movements intact pain-free however, there is rapid rhythmic horizontal nystagmus. Global weakness noted.Patient ataxic to upper extremities difficulty performing pqfabs-bj-fsgn, vavh-ey-ofjw. Patient unsteady on his feet. Patient has a very small 1 cm superficial laceration to the lateral aspect of left eye. Concerns for possible alcohol intoxication versus Wernicke's verses intracranial hemorrhage. No pain with palpation of chest, abdomen or pelvis therefore low suspicion for injuries to these areas. Will rule out electrolyte abnormalities, infection, polysubstance. There is no signs of optic nerve entrapment on exam. Will rule out hepatic encephalopathy. Plan at this time is to obtain CT of facial bones, head CT. Also order CTA of head and neck to rule out occlusion. Differential Diagnosis Differential Diagnoses: The differential diagnosis associated with the presentation includes Concerns for possible alcohol intoxication versus Wernicke's verses intracranial hemorrhage. No pain with palpation of chest, abdomen or pelvis therefore low suspicion for injuries to these areas. Will rule out electrolyte abnormalities, infection, polysubstance. There is no signs of optic nerve entrapment on exam. Will rule out hepatic encephalopathy. Admission/Observation Consideration of admission/observation: Escalation of care including admission/observation considered Lab Data 04/14/22 22:09 04/14/22 22:09 Labs: Lab Results 04/14/22 04/14/22 04/14/22 Range/Units 22:09 22:09 22:09 WBC 7.4 (4.8-10.8) X10*3/uL RBC 4.47 L (4.60-5.80) X10*6/uL Hgb 14.5 (14.0-18.0) g/dl Hct 42.0 (42.0-52.0) % MCV 94.0 (80.0-98.0) fL MCH 32.4 (27.0-33.0) pg MCHC 34.5 (31.0-36.0) g/dl RDW 12.8 (11.0-16.0) % Plt Count 178 D (160-400) X10*3/uL MPV 8.7 L (9.4-12.4) fL Immature Gran % (Auto) 0.1 (0.0-0.4) % Neut % (Auto) 58.5 (45-73) % Lymph % (Auto) 30.4 (20-40) % [place] % (Auto) 9.0 (2-11) % Eos % (Auto) 1.2 (0-4) % Baso % (Auto) 0.8 (0-2) % Lymph # (Auto) 2.2 (1.2-4.9) X10*3/uL [place] # (Auto) 0.7 (0.1-1.2) X10*3/uL Eos # (Auto) 0.1 (0.0-0.4) X10*3/uL Baso # (Auto) 0.1 (0.0-0.2) X10*3/uL Abs Immat Gran (auto) 0.01 (0.00-0.03) X10*3/uL Absolute Neuts (auto) 4.3 (2.0-8.3) x10*3/uL Absolute Nucleated RBC 0.000 (0.0-0.012) X10*3/uL Nucleated RBC % (auto) 0.0 (0.0-0.2) /100WBC PT 11.3 (10.0-13.1) SEC INR 1.0 (0.9-1.1) Sodium 146 H (135-145) mmol/L Potassium 4.8 D (3.3-5.1) mmol/L Chloride 107 (96-108) mmol/L Carbon Dioxide 25 (22-29) mmol/L Anion Gap 19 (12-20) BUN 5 L (9-16) mg/dL Creatinine 1.00 (0.5-1.4) mg/dL Estim Creat Clear Calc 88.8 Estimated GFR > 60 Random Glucose 95 (60-115) mg/dL Calcium 9.3 (8.4-10.2) mg/dL Magnesium 1.8 (1.6-2.6) mg/dL Total Bilirubin 1.2 H (0.0-1.0) mg/dL AST 67 H (5-37) U/L ALT 25 (0-40) U/L Alkaline Phosphatase 72 (39-117) U/L Ammonia (13-55) umol/L Total Protein 7.9 (6.5-8.0) g/dL Albumin 4.3 (3.5-5.0) g/dL Ethyl Alcohol 441 H* mg/dL COVID-19 ([facility]) (Negative) COVID-19 Clin Com 04/14/22 04/14/22 Range/Units 22:09 23:16 WBC (4.8-10.8) X10*3/uL RBC (4.60-5.80) X10*6/uL Hgb (14.0-18.0) g/dl Hct (42.0-52.0) % MCV (80.0-98.0) fL MCH (27.0-33.0) pg MCHC (31.0-36.0) g/dl RDW (11.0-16.0) % Plt Count (160-400) X10*3/uL MPV (9.4-12.4) fL Immature Gran % (Auto) (0.0-0.4) % Neut % (Auto) (45-73) % Lymph % (Auto) (20-40) % [place] % (Auto) (2-11) % Eos % (Auto) (0-4) % Baso % (Auto) (0-2) % Lymph # (Auto) (1.2-4.9) X10*3/uL [place] # (Auto) (0.1-1.2) X10*3/uL Eos # (Auto) (0.0-0.4) X10*3/uL Baso # (Auto) (0.0-0.2) X10*3/uL Abs Immat Gran (auto) (0.00-0.03) X10*3/uL Absolute Neuts (auto) (2.0-8.3) x10*3/uL Absolute Nucleated RBC (0.0-0.012) X10*3/uL Nucleated RBC % (auto) (0.0-0.2) /100WBC PT (10.0-13.1) SEC INR (0.9-1.1) Sodium (135-145) mmol/L Potassium (3.3-5.1) mmol/L Chloride (96-108) mmol/L Carbon Dioxide (22-29) mmol/L Anion Gap (12-20) BUN (9-16) mg/dL Creatinine (0.5-1.4) mg/dL Estim Creat Clear Calc Estimated GFR Random Glucose (60-115) mg/dL Calcium (8.4-10.2) mg/dL Magnesium (1.6-2.6) mg/dL Total Bilirubin (0.0-1.0) mg/dL AST (5-37) U/L ALT (0-40) U/L Alkaline Phosphatase (39-117) U/L Ammonia 35 (13-55) umol/L Total Protein (6.5-8.0) g/dL Albumin (3.5-5.0) g/dL Ethyl Alcohol mg/dL COVID-19 ([facility]) Negative (Negative) COVID-19 Clin Com See Note Critical Care Time Critical Care Time Critical Care Time: No Discharge Plan Discharge Clinical Impression: Alcohol intoxication, Fall Patient Disposition: Still a Patient Prescriptions: No Action trazodone 50 mg tablet 50 mg PO BEDTIME 30 Days Qty: 30 0RF chlordiazepoxide HCl 25 mg capsule 25 mg PO Q8-12H PRN (Reason: alcohol withdrawal) Qty: 5 0RF
--- NOTE | 2022-04-14 22:53 | ECG_ITS ---
Test Reason : AMS Blood Pressure : / mmHG Vent. Rate : 093 BPM Atrial Rate : 093 BPM P-R Int : 178 ms QRS Dur : 100 ms QT Int : 376 ms P-R-T Axes : 066 030 041 degrees QTc Int : 467 ms Normal sinus rhythm Normal ECG When compared with ECG of 17-FEB-2022 10:05, No significant change was found Referred By: Saadia Lindsey Electronically Signed By:JESENIA NAVARRO MD
[2022-04-14] MEDS: diphenhydrAMINE HCL 50 MG/ML VIAL IVPUSH (22:54)
[2022-04-14] MEDS: Thiamine HCL 200 MG in 0.9 % Sodium Chloride 100 ML 204 MG IV (23:18)
--- NOTE | 2022-04-14 23:19 | PC.NURSE ---
juan pablo assessed. reports that patient drinks a sleeve of 10 fireball nips and 3-22oz beers daily. patient states he is agreeable to detox post discharge.
[2022-04-14 23:46] VITALS: PULSE 90; O2SAT 89
[2022-04-14 23:47] VITALS: O2SAT 97
[2022-04-15] VITALS (8 sets, daily range): BP systolic 112–139; BP diastolic 61–98; PULSE 79–98; RESP 15–18; TEMP 36.4–36.6; O2SAT 94–98
[2022-04-15 00:12] LABS: Ammonia 35 umol/L (13-55)
[2022-04-15] MEDS: 0.9 % Sodium Chloride 1,000 ML 999 ML IV ×2 (01:35)
[2022-04-15 03:54] LABS: Appearance Urine Clear; Color Urine Yellow; Glucose Urine UA Negative (Negative); Leukocyte Esterase Urine Small (1+) (Negative); Nitrite Urine Positive (Negative); PH 5.5 (5.0-9.0); Specific Gravity - Urine >= 1.030 (1.005-1.025); UMIC TRIGGER UACC YES; Urine Blood Negative (Negative); Urine Ketones Negative (Negative); Urine Protein 30 (1+) mg/dL (Neg-Trace)
[2022-04-15 03:56] LABS: Bacteria Urine 4+ (None Seen); Hyaline Casts Urine 0-2 /LPF (0-2); RBC Urine 0-2 /HPF (0-2); UACC Culture Trigger YES
[2022-04-15 04:07] LABS: Amphetamine Screen Urine Not Detected (Not Detect); Barbiturates, Urine Not Detected (Not Detect); Benzodiazepines Screen Urine Not Detected (Not Detect); Cannabinoid Screen Urine POSITIVE (Not Detect); Cocaine Screen Urine Not Detected (Not Detect); Fentanyl, urine Not Detected (Not Detect); Opiate Screen Urine Not Detected (Not Detect); Phencyclidine Screen Urine Not Detected (Not Detect)
--- NOTE | 2022-04-15 07:56 | PC.NURSE ---
pt is a/o x 3 no sob/jayy noted speaks in full sentences. lungs - cta. heart sounds - regular. abd soft and non-tender. bs + x 4 quads. pt denies wanting detox at this time. no edema noted. pt's finance steve ([phone]) [place] [facility] [place]. pt aware of plan of care.
--- NOTE | 2022-04-15 08:20 | ECG_ITS ---
Test Reason : CHEST PAIN Blood Pressure : / mmHG Vent. Rate : 079 BPM Atrial Rate : 079 BPM P-R Int : 154 ms QRS Dur : 098 ms QT Int : 400 ms P-R-T Axes : 077 032 036 degrees QTc Int : 458 ms Normal sinus rhythm Normal ECG When compared with ECG of 14-APR-2022 23:04, No significant change was found Referred By: Juan Ng Electronically Signed By:JESENIA NAVARRO MD
--- NOTE | 2022-04-15 09:17 | MHC.EDTECH ---
pt stated he had an accidental bowl movement while waiting to walk to the bathroom. pt walked to the bathroom 1x assist, new nadia and nadia pants given, pt cleaned. bed cleaned and linens replaced.
--- NOTE | 2022-04-15 13:54 | MHC.RECOVRN ---
Met with pt in ED10 after consult placed to CARE Team for alcohol use. Pt laying in bed watching tv, awake, alert, easily engages in conversation. Pt does not appear to be uncomfortable or in withdrawal. Pts partner present. Both familiar with t/w from previous consults. Pt reports since last ED visit a couple months ago, pt has been drinking 10-15 nips Fireball daily as well as 5 25 ounce beers. Pt is not interested in inpatient treatment at this time. Discussed pts recent period of abstinence, approx 2 years which ended in Jan/Feb 2022. Pt reports having been in many treatment programs and states I really wanted it then. Now, not so much. Pt is interested in decreasing use. Discussed outpatient treatment, including medications for alcohol use disorder. Pt is interested in naltrexone and initiating care at the [facility] Discussed with ED provider, pt to be sent naltrexone prescription and follow up with the [facility] 04/20 at 10AM. Pt provided with [facility] information as well as t/w contact information. Denies questions or concerns.
== END 2022-04-15 11:42 | disposition home or self-care (01) ==
PROVIDERS: Physician Assistant; Emergency Provider Internal Medicine; PCP Nurse Practitioner Family
DX: F10.129 Alcohol abuse with intoxication, unspecified (principal); N39.0 Urinary tract infection, site not specified; R51.9 Headache, unspecified; M54.2 Cervicalgia; R07.89 Other chest pain; Y90.8 Blood alcohol level of 240 mg/100 ml or more; Z20.822 Contact with and (suspected) exposure to COVID-19; Z20.828 Contact with and (suspected) exposure to other viral communicable diseases; Z79.899 Other long term (current) drug therapy
CPT/HCPCS: 36415; 70450; 70486; 70496; 70498; 71045; 80053; 80307; 81001; 82077; 82140; 83735; 85025; 85610; 87086; 87088; 87186; 87635; 93005; 96361; 96365; 96375; 99284; 99285; J1200; J3411; Q9967

== ENCOUNTER 2022-04-20 05:01 | Inpatient (IN) | payer MEDICAID, SELFPAY ==
--- NOTE | ~2022-04-20 | XR_ITS ---
EXAMINATION: XR SHOULDER, RIGHT CLINICAL INFORMATION: Fall. Dislocation. COMPARISON: None TECHNIQUE: Three views of the right shoulder. FINDINGS: There is a comminuted fracture of the right humeral neck with impaction. Posterior displacement of the humeral head component which is dislocated from the glenoid articulation. The acromioclavicular joint is intact with mild hypertrophic degenerative change. The visualized lung is clear. The visualized ribs are intact. XR/XR shoulder RT min 2V IMPRESSION: Comminuted right humeral neck fracture with posterior dislocation of the humeral head component.
--- NOTE | ~2022-04-20 | XR_ITS ---
EXAMINATION: XR CHEST CLINICAL INFORMATION: Chest pain COMPARISON: 04/14/2022 TECHNIQUE: Frontal view of the chest was obtained. FINDINGS: Left humeral hardware noted. Cardiac leads overlie the chest. The lungs are well expanded. There is no focal consolidation, edema, or effusion. No pneumothorax. The cardiomediastinal silhouette is within normal limits. Large hiatal hernia which is gas and fluid-filled. No acute osseous abnormality. XR/XR chest 1V IMPRESSION: No acute pulmonary disease. Large hiatal hernia.
--- NOTE | ~2022-04-20 | CT_ITS ---
EXAMINATION: CT HEAD WITHOUT CONTRAST CLINICAL INFORMATION: Seizure COMPARISON: 04/14/2022 TECHNIQUE: Contiguous axial imaging was performed from the skull base to vertex without intravenous contrast. This CT examination was performed using dose optimization techniques as appropriate, variously including the following: * Automated exposure control * Adjustment of mA and/or kV according to patient size (this includes techniques or standardized protocols for targeted exams where dose is matched to indication/reason for exam; i.e. extremities or head) Use of iterative reconstruction technique DLP: 718 mGy-cm. FINDINGS: There is no evidence of acute intracranial hemorrhage or territorial infarction. No abnormal mass effect or midline shift is seen. Vera to white matter differentiation is well preserved. No extra-axial fluid collections are identified. No hydrocephalus. No significant volume loss. Patchy periventricular and deep white matter hypoattenuation is consistent with mild small vessel ischemic changes. The osseous structures and soft tissues are normal. The mastoid air cells and visualized portions of the paranasal sinuses are well aerated. CT/CT head/brain wo IV con IMPRESSION: No acute intracranial pathology.
[2022-04-20 05:10] VITALS: BP 150/96; BP 156/111; PULSE 125; PULSE 130; RESP 22; TEMP 37; O2SAT 95; O2SAT 96; BMI 21.8
--- NOTE | 2022-04-20 05:39 | ECG_ITS ---
Test Reason : chest pain Blood Pressure : / mmHG Vent. Rate : 114 BPM Atrial Rate : 114 BPM P-R Int : 144 ms QRS Dur : 094 ms QT Int : 358 ms P-R-T Axes : 049 016 023 degrees QTc Int : 493 ms Sinus tachycardia Otherwise normal ECG When compared with ECG of 15-APR-2022 08:26, No significant change was found Referred By: Timothy Hunt Electronically Signed By:Qamar Gonzalez
[2022-04-20] MEDS: 0.9 % Sodium Chloride 1,000 ML 999 ML IV (05:51)
[2022-04-20 05:56] LABS: MANUAL DIFF FLAG NO
[2022-04-20] MEDS: Morphine Sulfate 2 MG/ML CARTRIDGE IVPUSH (05:56)
--- NOTE | 2022-04-20 05:56 | ED_ITS ---
HPI - General Adult General Chief complaint: ETOH/Substance Use Stated complaint: seizure etoh withdrawl Time Seen by Provider: 04/20/22 05:24 Source: patient, family (Fiancee) and EMS Mode of arrival: EMS Limitations: no limitations History of Present Illness HPI narrative: 56-year-old male history of alcohol abuse presented after having a seizure while he was sleeping, his fiancee confirm that patient did not fall off the bed but she heard a poping and crunching sounds from a right shoulder had witnessed malka re convulsions, no fall, no head injury. Seizure lasted after 2 minutes Patient is known to have alcohol-related seizure normally from withdrawing, reportedly by the girlfriend patient was sound asleep when he had the seizure activity and last drink was last night. Patient had history of left shoulder dislocation. Related Data Previous Rx's Medication Instructions Recorded cefuroxime axetil 250 mg tablet 250 mg PO BID 7 days #14 tabs 04/15/22 naltrexone 50 mg tablet 50 mg PO DAILY 30 days #29 tabs 04/15/22 Allergies Allergy/AdvReac Type Severity Reaction Status Date / Time Iodinated Contrast Media Allergy Cough Verified 04/14/22 23:50 [IV Contrast Dye] Review of Systems Review of Systems: All other systems are reviewed and are negative Constitutional: Reports as per HPI and Reports no additional constitutional complaints Eyes: Reports as per HPI and Reports no additional eye complaints Reports system reviewed and no additional complaints, except as documented Cardiovascular: Reports as per HPI and Reports no additional cardiovascular complaints Respiratory: Reports as per HPI and Reports no additional respiratory complaints Gastrointestinal: Reports as per HPI and Reports no additional gastrointestinal complaints Genitourinary: Reports no additional female genitourinary complaints Musculoskeletal: Reports no additional musculoskeletal complaints Skin/Breast: Reports system reviewed and no additional complaints, except as docu Psychiatric: Reports no additional psychiatric complaints Endocrine: Reports no additional endocrine complaints Hematologic/Lymphatic: Reports no additional hematologic/lymphatic complaints Allergic/Immunologic: Reports no additional allergic/immunologic complaints Reports system reviewed and no additional complaints, except as documented and Reports Abnormal speech present [facility] Past Medical History Medical History No known health problems Social History Social History Alcohol intake: current Alcohol intake frequency: 3 or more drinks per day Al cohol type: hard liquor Substance Use Type: Marijuana Advance Directives: No Advance Directives Information Provided: No Physical Exam ED Vital Signs: Vital Signs - 24 hr 04/20/22 05:10 Temperature 98.6 F Pulse Rate 125 H Respiratory Rate 22 H Blood Pressure 156/111 H Pulse Oximetry 95 Oxygen Delivery Method Room Air BMI result Body Mass Index 21.8 Vital signs have been reviewed as appeared to be correct. Blood pressure elevated. Heart rate elevated. Respiration rate normal. Temperature normal. Oxygen saturation normal. Appearance: Alert. Oriented X3. No acute distress. Head: Normal external exam. Normocephalic. Atraumatic. No Alarcon signs noted. No raccoon eyes noted Eyes: PERRLA. EOMI. Conjunctiva and sclera normal. Eyelids normal. ENT: TM's Normal. Pharynx normal. Uvula midline. Moist mucous membranes. No trismus noted. No drooling noted. No muffled voice noted. Neck: Normal inspection. Neck supple. FROM. No adenopathy. Thyroid Normal. No meningeal signs. No neck mass noted. CVS: Normal heart rate and rhythm. Heart sound normal. No murmurs noted. Pulses normal throughout. Respiratory: No respiratory distress. Painless inspiration. Breath sounds normal. No wheezes/rales/rhonchi noted. Chest nontender. No accessory muscle usage noted or decreased air movement noted. Abdomen: Soft and nontender. Bowel sounds normal in all 4 quadrants. No distention noted. No organomegaly noted. No visible injury noted. Back: No CVA tenderness. Full range of motion noted. Skin: Skin warm and dry. Normal skin color. Normal skin turgor. No rashes/lesions/lacerations noted. Extremities: Right shoulder held in adduction unable to abduct the right shoulder, apparent deformity of right humeral head. Extremities exhibit normal range of motion. Extremities nontender. Neuro: Oriented X 3. Cranial nerve exam: II-XII are grossly intact No motor deficit. No sensory deficit. Reflexes normal. Course Course Course Narrative: 56-year-old male with history of chronic alcoholism and history of alcohol withdrawal seizure. Patient had seizure witnessed by girlfriend without hitting his head. 1. Start the patient on phenobarb and admit to the hospital. 2. Replete magnesium and potassium IV. 3. Right shoulder fracture and dislocation ortho consultation/pain control/immobilization with shoulder sling. Medications Administered Generic Name Dose Route Start Last Admin Trade Name Freq PRN Reason Stop Dose Admin Magnesium Sulfate 2 gm in 50 mls @ 25 mls/hr 04/20/22 06:19 04/20/22 06:32 Magnesium Sulfate/H2o IV 04/20/22 08:18 25 mls/hr ONCE ONE Administration Discontinued Medications Generic Name Dose Route Start Last Admin Trade Name Freq PRN Reason Stop Dose Admin Sodium Chloride 1,000 mls @ 999 mls/hr 04/20/22 05:39 04/20/22 05:51 Ns IV 04/20/22 06:39 999 mls/hr .Q1H1M ONE Administration Morphine Sulfate 2 mg 04/20/22 05:51 04/20/22 05:56 Morphine Sulfate 2 Mg/Ml Cartridge IVPUSH 04/20/22 05:52 2 mg ONCE ONE Administration Protocol Phenobarbital Sodium 308.4 mg 04/20/22 06:00 04/20/22 06:32 Phenobarbital Sodium 130 Mg/Ml Im Once IM 04/20/22 06:01 308.4 mg ONCE ONE Administration Medical Decision Making Differential Diagnosis Differential Diagnoses: The differential diagnosis associated with the p resentation includes (Alcohol withdrawal, head injury, electrolyte disturbance,) Admission/Observation Consideration of admission/observation: Escalation of care including admission/observation considered Consult Healthcare Provider Management of the patient was discussed with: Hospitalist and Community Support Associate (Micki Guy (ortho)) Lab Data MDM Lab Attestation statement: I reviewed the patient's lab results. 04/20/22 05:49 04/20/22 05:49 Labs: Lab Results 04/20/22 04/20/22 04/20/22 Range/Units 05:49 05:49 05:49 WBC 11.3 H (4.8-10.8) X10*3/uL RBC 4.21 L (4.60-5.80) X10*6/uL Hgb 13.9 L (14.0-18.0) g/dl Hct 39.0 L (42.0-52.0) % MCV 92.6 (80.0-98.0) fL MCH 33.0 (27.0-33.0) pg MCHC 35.6 (31.0-36.0) g/dl RDW 12.4 (11.0-16.0) % Plt Count 148 L (160-400) X10*3/uL MPV 10.0 (9.4-12.4) fL Immature Gran % (Auto) 0.7 H (0.0-0.4) % Neut % (Auto) 75.6 H (45-73) % Lymph % (Auto) 12.3 L (20-40) % [place] % (Auto) 9.2 (2-11) % Eos % (Auto) 1.7 (0-4) % Baso % (Auto) 0.5 (0-2) % Lymph # (Auto) 1.4 (1.2-4.9) X10*3/uL [place] # (Auto) 1.0 (0.1-1.2) X10*3/uL Eos # (Auto) 0.2 (0.0-0.4) X10*3/uL Baso # (Auto) 0.1 (0.0-0.2) X10*3/uL Abs Immat Gran (auto) 0.08 H (0.00-0.03) X10*3/uL Absolute Neuts (auto) 8.5 H (2.0-8.3) x10*3/uL Absolute Nucleated RBC 0.020 H (0.0-0.012) X10*3/uL Nucleated RBC % (auto) 0.2 (0.0-0.2) /100WBC Sodium 137 (135-145) mmol/L Potassium 3.2 L D (3.3-5.1) mmol/L Chloride 100 (96-108) mmol/L Carbon Dioxide 19 L (22-29) mmol/L Anion Gap 21 H (12-20) BUN 6 L (9-16) mg/dL Creatinine 0.84 (0.5-1.4) mg/dL Estim Creat Clear Calc 105.8 Estimated GFR > 60 Random Glucose 148 H (60-115) mg/dL Calcium 8.9 (8.4-10.2) mg/dL Magnesium 1.1 L* (1.6-2.6) mg/dL Total Bilirubin 2.8 H (0.0-1.0) mg/dL Direct Bilirubin 0.8 H (0.0-0.5) mg/dL AST 53 H (5-37) U/L ALT 24 (0-40) U/L Alkaline Phosphatase 74 (39-117) U/L Troponin I High Sens < 3.5 (<3.5-35.0) ng/L Total Protein 7.4 (6.5-8.0) g/dL Albumin 4.0 (3.5-5.0) g/dL Lipase 19 (8-78) U/L COVID-19 (BRUNA) (Negative) COVID-19 Clin Com 04/20/22 Range/Units 05:49 WBC (4.8-10.8) X10*3/uL RBC (4.60-5.80) X10*6/uL Hgb (14.0-18.0) g/dl Hct (42.0-52.0) % MCV (80.0-98.0) fL MCH (27.0-33.0) pg MCHC (31.0-36.0) g/dl RDW (11.0-16.0) % Plt Count (160-400) X10*3/uL MPV (9.4-12.4) fL Immature Gran % (Auto) (0.0-0.4) % Neut % (Auto) (45-73) % Lymph % (Auto) (20-40) % [place] % (Auto) (2-11) % Eos % (Auto) (0-4) % Baso % (Auto) (0-2) % Lymph # (Auto) (1.2-4.9) X10*3/uL [place] # (Auto) (0.1-1.2) X10*3/uL Eos # (Auto) (0.0-0.4) X10*3/uL Baso # (Auto) (0.0-0.2) X10*3/uL Abs Immat Gran (auto) (0.00-0.03) X10*3/uL Absolute Neuts (auto) (2.0-8.3) x10*3/uL Absolute Nucleated RBC (0.0-0.012) X10*3/uL Nucleated RBC % (auto) (0.0-0.2) /100WBC Sodium (135-145) mmol/L Potassium (3.3-5.1) mmol/L Chloride (96-108) mmol/L Carbon Dioxide (22-29) mmol/L Anion Gap (12-20) BUN (9-16) mg/dL Creatinine (0.5-1.4) mg/dL Estim Creat Clear Calc Estimated GFR Random Glucose (60-115) mg/dL Calcium (8.4-10.2) mg/dL Magnesium (1.6-2.6) mg/dL Total Bilirubin (0.0-1.0) mg/dL Direct Bilirubin (0.0-0.5) mg/dL AST (5-37) U/L ALT (0-40) U/L Alkaline Phosphatase (39-117) U/L Troponin I High Sens (<3.5-35.0) ng/L Total Protein (6.5-8.0) g/dL Albumin (3.5-5.0) g/dL Lipase (8-78) U/L COVID-19 (BRUNA) Negative (Negative) COVID-19 Clin Com See Note Independent Interpretation I performed an independent interpretation of an: EKG (Sinus tachycardia at 114 beats per minutes, normal intervals, ST-T changes.), Plain X-Ray (Right shoulder: Right humeral neck fracture with head dislocation.) and CT Scan (Head: No acute intracranial pathology.) Radiology Impression Discussion of test interpretation with radiology: I have reviewed the radiologist's reading. Independent Historian Clinical information obtained from an independent historian. History obtained from or confirmed by: Spouse Discharge Plan Discharge Clinical Impression: Alcohol withdrawal syndrome, Alcohol withdrawal seizure, Hypomagnesemia, Closed right scapular fracture, Acute hypokalemia Patient Disposition: Admitted As Inpatient Interventions: [place]-Suicide Risk Severity Scale Last Done: 04/20/22 05:15
[2022-04-20 06:09] LABS: COVID-19 Test Negative (Negative); IDNOW Serial# BCCEAD1C
[2022-04-20 06:13] LABS: Troponin-I High Sensitivity < 3.5 ng/L (<3.5-35.0)
[2022-04-20 06:14] LABS: Basophils Absolute Auto 0.1 X10*3/uL (0.0-0.2); Basophils Percent Auto 0.5 % (0-2); Eosinophils Absolute Auto 0.2 X10*3/uL (0.0-0.4); Eosinophils Percent Auto 1.7 % (0-4); Hemoglobin 13.9 g/dl (14.0-18.0); Imm Gran Abs Auto 0.08 X10*3/uL (0.00-0.03); Imm Gran Pct Auto 0.7 % (0.0-0.4); Lymphocytes Absolute Auto 1.4 X10*3/uL (1.2-4.9); Lymphocytes Percent Auto 12.3 % (20-40); Mean Corpuscular HGB Conc 35.6 g/dl (31.0-36.0); Mean Corpuscular Volume 92.6 fL (80.0-98.0); Monocytes Percent Auto 9.2 % (2-11); NRBC Pct Auto 0.2 /100WBC (0.0-0.2); Neutrophils Absolute Auto 8.5 x10*3/uL (2.0-8.3); Neutrophils Percent Auto 75.6 % (45-73); Platelet Count 148 X10*3/uL (160-400); Red Blood Count 4.21 X10*6/uL (4.60-5.80); Red Cell Distribution Width 12.4 % (11.0-16.0); White Blood Count 11.3 X10*3/uL (4.8-10.8)
[2022-04-20 06:18] LABS: Alanine Aminotransferase 24 U/L (0-40); Alkaline Phosphatase 74 U/L (39-117); Anion Gap 21 (12-20); Aspartate Amino Transferase 53 U/L (5-37); Bilirubin Direct 0.8 mg/dL (0.0-0.5); Bilirubin Total 2.8 mg/dL (0.0-1.0); Blood Urea Nitrogen 6 mg/dL (9-16); Calcium 8.9 mg/dL (8.4-10.2); Carbon Dioxide 19 mmol/L (22-29); Chloride 100 mmol/L (96-108); Creatinine Clr Calc Pharmacy 105.8; Estimated Glomerular Filt Rate > 60; Glucose Random 148 mg/dL (60-115); Potassium 3.2 mmol/L (3.3-5.1); Sodium 137 mmol/L (135-145); Total Protein 7.4 g/dL (6.5-8.0)
[2022-04-20 06:19] LABS: Magnesium 1.1 mg/dL (1.6-2.6)
[2022-04-20 06:31] LABS: Lipase 19 U/L (8-78)
[2022-04-20] MEDS: Magnesium Sulfate/H2O 2 GM/50 ML PIGGYBACK IV (06:32)
[2022-04-20] MEDS: PHENobarbitaL sodium 130 MG/ML IM ONCE 308.4 MG IM (06:32)
[2022-04-20 07:28] LABS: Ethanol < 10 mg/dL
[2022-04-20] MEDS: Potassium Chloride/H20 10 MEQ/100 ML PIGGYBACK 100 MEQ IV (07:31)
[2022-04-20] MEDS: Potassium Chloride Packet 20 MEQ PACKET 40 MEQ PO (07:31)
--- NOTE | 2022-04-20 07:45 | PC.NURSE ---
Sling applied to pt with relief from pain. Linens changed, blanket given. Awaiting hospitalist at this time. Girlfriend at bedside.
[2022-04-20 07:46] VITALS: BP 168/115; PULSE 84; RESP 16; TEMP 36.4; O2SAT 97
--- NOTE | 2022-04-20 07:51 | PM.CNOR ---
History of Present Illness HPI Consult date: 04/20/22 Chief complaint: seizure etoh withdrawl Narrative: Mr. Burleson is a 56 yo male who presented to the ED last night after having a witnessed seizure by his partner. He has a PMH significant for EtOH abuse and reports one prior alcohol-related seizure. The partner is at bedside and states that the patient did not fall, although during convulsions she hear a snap and popping from the right shoulder. Last time the patient ingested alcohol was last night. He is currently on Naltrexone. X-rays obtained in the ED revealed a right humerus fracture with posterior dislocation of the head. Orthopedics was then consulted for further evaluation and treatment. Review of Systems Review of Systems: Yes all other systems are reviewed and are negative PMFSH Past Medical History Medical History No known health problems Social History Social History Alcohol intake: current Alcohol intake frequency: 3 or more drinks per day Alcohol type: hard liquor Substance Use Type: Marijuana Advance Directives: No Advance Directives Information Provided: No Meds Allergies Allergy/AdvReac Type Severity Reaction Status Date / Time Iodinated Contrast Media Allergy Cough Verified 04/14/22 23:50 [IV Contrast Dye] Active Medications: Current Medications Magnesium Sulfate (Magnesium Sulfate/H2o) 2 gm in 50 mls @ 25 mls/hr IV ONCE ONE Stop: 04/20/22 08:18 Last Admin: 04/20/22 06:32 Dose: 25 mls/hr Pharmacy Consult (Consult Rx Perform Med Rec) 1 each MISCELLANE ONCE PRN PRN Reason: Consult order Pharmacy Consult (Consult Rx Etoh Phenob Im/Po) 1 each MISCELLANE ONCE PRN; Protocol PRN Reason: Consult order Pharmacy Consult (Consult Rx Perform Med Rec) 1 each MISCELLANE ONCE PRN PRN Reason: Consult order Phenobarbital (Phenobarbital 30 Mg Tablet) 60 mg PO BID LUÍS; Protocol Stop: 04/22/22 09:01 Phenobarbital (Phenobarbital 30 Mg Tablet) 30 mg PO BID LUÍS; Protocol Stop: 04/24/22 09:01 Phenobarbital (Phenobarbital 30 Mg Tablet) 30 mg PO DAILY LUÍS; Protocol Stop: 04/26/22 09:01 Phenobarbital Sodium (Phenobarbital Sodium 130 Mg/Ml Vial Im Q3hx2) 231.3 mg IM Q3H LUÍS Stop: 04/20/22 12:01 Physical Exam Vital Signs: Vital Signs: Last Vital Signs Temp 97.6 F 04/20/22 07:46 Pulse 84 04/20/22 07:46 Resp 16 04/20/22 07:46 BP 168/115 H 04/20/22 07:46 Pulse Ox 97 04/20/22 07:46 O2 Del Method 04/20/22 07:46 BMI result Body Mass Index 21.8 Const: General: cooperative, healthy appearing and no acute distress Resp: Effort & Inspection: normal respiratory effort and able to speak in complete sentences Cardio: Rate: regular rate Peripheral pulses: Peripheral pulses 2+ throughout GI: Palpation (GI): Soft to palpation Skin: Lesions: no lesions Rashes: no rashes Extrem: Other: Right shoulder no ecchymosis, erythema or edema. Able to perform elbow ROM. Able to demonstrate wrist flexion, extension, finger cross, abduction, adduction, finger cross, and okay sign. Sensation is intact. Capillary refill is brisk. Results Labs 04/20/22 05:49 04/20/22 05:49 Labs: Abnormal lab results 04/20/22 04/20/22 Range/Units 05:49 05:49 WBC 11.3 H (4.8-10.8) X10*3/uL RBC 4.21 L (4.60-5.80) X10*6/uL Hgb 13.9 L (14.0-18.0) g/dl Hct 39.0 L (42.0-52.0) % Plt Count 148 L (160-400) X10*3/uL Immature Gran % (Auto) 0.7 H (0.0-0.4) % Neut % (Auto) 75.6 H (45-73) % Lymph % (Auto) 12.3 L (20-40) % Abs Immat Gran (auto) 0.08 H (0.00-0.03) X10*3/uL Absolute Neuts (auto) 8.5 H (2.0-8.3) x10*3/uL Absolute Nucleated RBC 0.020 H (0.0-0.012) X10*3/uL Potassium 3.2 L D (3.3-5.1) mmol/L Carbon Dioxide 19 L (22-29) mmol/L Anion Gap 21 H (12-20) BUN 6 L (9-16) mg/dL Random Glucose 148 H (60-115) mg/dL Magnesium 1.1 L* (1.6-2.6) mg/dL Total Bilirubin 2.8 H (0.0-1.0) mg/dL Direct Bilirubin 0.8 H (0.0-0.5) mg/dL AST 53 H (5-37) U/L H & H 04/20/22 Range/Units 05:49 Hgb 13.9 L (14.0-18.0) g/dl Hct 39.0 L (42.0-52.0) % All other labs normal. Assessment and Plan (1) Alcohol withdrawal syndrome: Status: Acute (2) Alcohol withdrawal seizure: Status: Acute (3) Hypomagnesemia: Status: Acute (4) Acute hypokalemia: Status: Acute (5) Closed right humeral fracture: Status: Acute Sling for comfort - Make sure wrist is not dropping out of sling Pain management as needed Gentle ROM of the elbow, hand and wrist - exercises demonstrated to the patient Elevate hand to prevent swelling Orthopedics outpatient f/u No additional orthopedic intervention is needed at this time Time Spent With Patient Time: Total time managing care of this patient today ____ minutes. Procedures Date of Service Date of Service: 04/20/22
[2022-04-20 08:25] LABS: Appearance Urine Clear; Color Urine Yellow; Glucose Urine UA Negative (Negative); Leukocyte Esterase Urine Trace (Negative); Nitrite Urine Negative (Negative); Specific Gravity - Urine 1.015 (1.005-1.025); UMIC TRIGGER UACC YES; Urine Blood Trace (Negative); Urine Ketones 15 mg/dL (Negative); Urine Protein 100 (2+) mg/dL (Neg-Trace)
[2022-04-20 08:30] LABS: Bacteria Urine None Seen (None Seen); Hyaline Casts Urine 0-2 /LPF (0-2); RBC Urine 0-2 /HPF (0-2); Squamous Epithelial Cell Urine 0-2 /HPF (0-2); UACC Culture Trigger YES
--- NOTE | 2022-04-20 09:40 | PHA.MEDREC ---
Pharmacy Consult ? Medication Reconciliation Pharmacy has completed the medication reconciliation.
[2022-04-20] MEDS: PHENobarbitaL sodium 130 MG/ML VIAL IM Q3Hx2 231.3 MG IM ×2 (10:13→14:06)
[2022-04-20 12:52] VITALS: BP 138/103; PULSE 89; RESP 19; TEMP 36.6; O2SAT 94
--- NOTE | 2022-04-20 13:11 | P.HPHOSP_ITS ---
History of Present Illness Date of Service: 04/20/22 Attending physician on admission: Stephen Tariq Chief Complaint: seizure 56 year old male with history alcohol dependence presented to the ED early this morning via EMS with his fiance after being found seizing in his sleep. Per his fiance there was a popping/crunching sound from right shoulder asociated with the convulations, but pt did not fall off bed. Reports sezirue lasted about 2 minutes. Per the patient he has been trying to cut back on alcohol and only had one beer and one shot last yesterday and usually drinks much more than this. He has had etoh related seizures in the past and reports sobriety about 2 years before relapsing last year. He does desire detox again and has been following with Kristine Meneses and takes naltrexone. Denies any illicit drug use. On arrival pt tachycardic to 125, tachypneic to 22 now resolved. Hypertensive to 156/111. Mild leukocytosis 11.3. Normocytic anemia with H/H of 13.9/39.0%. Renal function baseline. Sodium 137, potassium 3.2 repleted in ED, chloride 100, CO2 19, magnesium 1 point wanted repleted in the ED. AST 53, ALT 24, total bilirubin 2.8, direct bilirubin 0.8. Troponins negative. He is also currently on cefuroxime for UTI which was diagnosed in the ED on 04/15. UC sensitive to ceftriaxone. Still reports ongoing increased urinary frequency but denies any fevers, chills, dysuria, hematuria. Head CT negative for any acute intracranial pathology. Shoulder x-ray showing comminuted right humeral neck fracture with posterior dislocation. Chest x-ray negative for acute pulmonary disease. Patient initiated on phenobarbital per protocol for alcohol withdrawal. [facility], LAT[facility] Medical History (Updated 04/20/22 @ 13:30 by NICKO Nuñez) Alcohol dependence Alcohol withdrawal seizure Social History (Updated 04/20/22 @ 13:19 by NICKO Nuñez) Household Members: Significant Other Housing: Apartment Do you presently have visiting nurse or other home services: No Alcohol intake: current Alcohol intake frequency: 3 or more drinks per day Alcohol type: hard liquor Patient Tobacco Use Status: Current someday Tobacco user Tobacco use type: Cigarette e-Cigarette/Vaping Use: Never Used Second Hand Smoke Exposure: No Substance Use Type: Marijuana Meds Allergies Allergy/AdvReac Type Severity Reaction Status Date / Time Iodinated Contrast Media Allergy Cough Verified 04/14/22 23:50 [IV Contrast Dye] Active Medications: Current Medications Acetaminophen (Acetaminophen 325 Mg Tablet) 650 mg PO Q6H PRN PRN Reason: Pain, Mild (Pain Scale 1-3) Cefuroxime Axetil (Cefuroxime Axetil 250 Mg Tablet) 250 mg PO BID [facility] Stop: 04/23/22 09:01 Docusate Sodium (Docusate Sodium 100 Mg Capsule) 100 mg PO DAILY PRN PRN Reason: Constipation Enoxaparin Sodium (Enoxaparin Sodium 40 Mg/0.4 Ml Syringe) 40 mg SUBCUT Q24H [facility] Ondansetron HCl (Ondansetron Hcl 4 Mg/2 Ml Vial) 4 mg IVPUSH Q8H PRN PRN Reason: Nausea and Vomiting Oxycodone HCl (Oxycodone Hcl Immed Release 5 Mg Tablet) 5 mg PO Q6H PRN PRN Reason: Pain, Severe (Pain Scale 7-10) Pharmacy Consult (Consult Rx Perform Med Rec) 1 each MISCELLANE ONCE PRN PRN Reason: Consult order Pharmacy Consult (Consult Rx Etoh Phenob Im/Po) 1 each MISCELLANE ONCE PRN; Protocol PRN Reason: Consult order Pharmacy Consult (Consult Rx Perform Med Rec) 1 each MISCELLANE ONCE PRN PRN Reason: Consult order Phenobarbital (Phenobarbital 30 Mg Tablet) 60 mg PO BID [facility]; Protocol Stop: 04/22/22 09:01 Phenobarbital (Phenobarbital 30 Mg Tablet) 30 mg PO BID [facility]; Protocol Stop: 04/24/22 09:01 Phenobarbital (Phenobarbital 30 Mg Tablet) 30 mg PO DAILY [facility]; Protocol Stop: 04/26/22 09:01 Sodium Chloride (0.9 % Sodium Chloride Flush 3 Ml Syringe) 3 ml IVFLUSH QSHIFT [facility] Home Medications Medication Instructions Recorded Confirmed Last Taken Type chlordiazepoxide HCl 25 mg capsule 1 cap PO Q8-12H PRN withdrawal 04/20/22 04/20/22 04/19/22 23:00 History symptom Physical Exam Vital Signs and Narrative: Vital Signs: Last Vital Signs Temp 97.8 F 04/20/22 12:52 Pulse 89 04/20/22 12:52 Resp 19 04/20/22 12:52 BP 138/103 H 04/20/22 12:52 Pulse Ox 94 04/20/22 12:52 O2 Del Method 04/20/22 12:52 BMI result Body Mass Index 21.8 Constitutional - Awake and Alert, No apparent distress Eyes - PERRLA, EOMI Cardiovascular - S1S2, RRR, No edema Respiratory - Normal lung expansion, Normal respiratory effort, No respiratory distress, CTA bilaterally Gastrointestinal - NT / ND; +BS; No rebound or guarding Extremities - no calf tenderness bilaterally, no swelling Musculoskeletal - RUE immobilized in sling Skin - Warm/Dry Neurological - Alert & oriented x3, CN II-XII in tact, 5/5 strength BUE and BLE, tremors b/l hands Psychological - Mildly anxious appearing Results Labs 04/20/22 05:49 04/20/22 05:49 Labs: Laboratory Results - last 24 hr 04/20/22 04/20/22 04/20/22 05:49 05:49 05:49 MCV 92.6 MCH 33.0 MCHC 35.6 RDW 12.4 Plt Count 148 L MPV 10.0 Immature Gran % (Auto) 0.7 H Neut % (Auto) 75.6 H Lymph % (Auto) 12.3 L [place] % (Auto) 9.2 Eos % (Auto) 1.7 Baso % (Auto) 0.5 Lymph # (Auto) 1.4 [place] # (Auto) 1.0 Eos # (Auto) 0.2 Baso # (Auto) 0.1 Abs Immat Gran (auto) 0.08 H Absolute Neuts (auto) 8.5 H Absolute Nucleated RBC 0.020 H Nucleated RBC % (auto) 0.2 Anion Gap 21 H Estim Creat Clear Calc 105.8 Estimated GFR > 60 Random Glucose 148 H Calcium 8.9 Magnesium 1.1 L* Total Bilirubin 2.8 H Direct Bilirubin 0.8 H AST 53 H ALT 24 Alkaline Phosphatase 74 Troponin I High Sens < 3.5 Total Protein 7.4 Albumin 4.0 Lipase 19 Urine Color Urine Appearance Urine pH Ur Specific [place] Urine Protein Urine Glucose (UA) Urine Ketones Urine Blood Urine Nitrite Ur Leukocyte Esterase Urine RBC Urine WBC Ur Squamous Epith Cells Urine Bacteria Hyaline Casts Ethyl Alcohol < 10 COVID-19 ([facility]) COVID-19 Clin Com 04/20/22 04/20/22 05:49 08:01 MCV MCH MCHC RDW Plt Count MPV Immature Gran % (Auto) Neut % (Auto) Lymph % (Auto) [place] % (Auto) Eos % (Auto) Baso % (Auto) Lymph # (Auto) [place] # (Auto) Eos # (Auto) Baso # (Auto) Abs Immat Gran (auto) Absolute Neuts (auto) Absolute Nucleated RBC Nucleated RBC % (auto) Anion Gap Estim Creat Clear Calc Estimated GFR Random Glucose Calcium Magnesium Total Bilirubin Direct Bilirubin AST ALT Alkaline Phosphatase Troponin I High Sens Total Protein Albumin Lipase Urine Color Yellow Urine Appearance Clear Urine pH 6.0 Ur Specific [place] 1.015 Urine Protein 100 (2+) H Urine Glucose (UA) Negative Urine Ketones 15 Urine Blood Trace H Urine Nitrite Negative Ur Leukocyte Esterase Trace H Urine RBC 0-2 Urine WBC 6-10 H Ur Squamous Epith Cells 0-2 Urine Bacteria None Seen Hyaline Casts 0-2 Ethyl Alcohol COVID-19 ([facility]) Negative COVID-19 Clin Com See Note Imaging Radiologist's Impressions: Impressions Chest X-Ray 04/20/22 05:40 IMPRESSION: No acute pulmonary disease. Large hiatal hernia. Shoulder X-Ray 04/20/22 05:41 IMPRESSION: Comminuted right humeral neck fracture with posterior dislocation of the humeral head component. Head CT 04/20/22 06:10 IMPRESSION: No acute intracranial pathology. Assessment and Plan (1) Alcohol withdrawal seizure: Status: Acute (2) Alcohol withdrawal syndrome: Status: Acute (3) Closed right humeral fracture: Status: Acute (4) Closed right scapular fracture: Status: Acute Plan 56 year old male with history alcohol dependence admitted for alcohol withdrawal seizure. #Alcohol dependence with acute withdrawal and withdrawal seizure -continue phenobarbital per protocol -Tachycardia r/t withdrawal, not infection/sepsis. Leukocytosis likely reactive following seizure, not sepsis -seizure precautions -monitor on CIWA scale -monitor on telemetry -replete electrolyte abnormalities as below -addiction medicine consult. Desires detox and follows with Kristine Meneses outpt -Hold naltrexone and chlordiazepoxide in inpt setting. On phenobarb #Hypomagnesemia- r/t etoh use -Mag 1.1. Given 2g IV mag in ED. -EKG showed sinus tachycardia, rate 114 -Repeat Mag now, follow am #Hypokalemia - K 3.2. Repleted in ED - Follow BMP #Acute UTI- sx improving -Continue cefuroxime BID x7 days (started 04/15) #Closed right humeral and scapular fracture -evaluated by Orthopedics in the ED -no further inpatient intervention needed. Will require outpatient follow-up -continue shoulder immobilizer/sling -pain management with tylenol and oxycodone # hyperbilirubinemia -related to alcohol liver disease, not severe sepsis -follow hepatic panel DVT prophylaxis-Lovenox Full code Patient requires inpatient stay of at least 2 midnights for management of alcohol withdrawal and alcohol withdrawal seizure on phenobarbital per protocol with close monitoring of withdrawal symptoms that cannot be performed in lower level of care Time Spent With Patient Time: Total time managing care of this patient today ____ minutes. Quality Stroke Does the patient have a stroke diagnosis?: No VTE Prior VTE?: No VTE Risk Level:: Medical - moderate - high VTE Device Contraindication: Treatment Not Indicated VTE Drug Contraindication: N/A - Med Ordered
[2022-04-20 14:05] LABS: Magnesium 1.5 mg/dL (1.6-2.6)
[2022-04-20] MEDS: Enoxaparin Sodium 40 MG/0.4 ML SYRINGE SUBCUT (14:07)
[2022-04-20] MEDS: oxyCODONE HCl Immed Release 5 MG TABLET PO ×2 (14:07→20:57)
[2022-04-20 14:48] VITALS: BP 146/103; PULSE 88; RESP 20; TEMP 36.7; O2SAT 94
--- NOTE | 2022-04-20 16:08 | P.PNADD_ITS ---
Subjective Subjective Date of Service: 04/20/22 Reason For Visit: ETOH W/D Seizure Interim History: Patient seen with Recovery Support RN while in ED awaiting transport to medical floor. Patient was seen by [facility] last week and started nalt[place]one [place] [facility] He declined [facility] admission, but agreeable to outpatient follow up. [place] was 1 at time of discharge from ED. He presented to ED today following a seizure early this morning. Patient was awake, alert, very pleasant and engaged in interview. He reports that he had cut down alcohol significantly --was drinking several beers and nips of alcohol a day and reports he cut down to one beer and one nip. Discussed importance of decreasing alcohol use very slowly and with provier input as this drastic taper is what likely caused his seizure. While patient verbalized understanding it's unclear if he actually understood as RN reports he was given explicit directions to not stop drinking abruptly and he was scheduled to see this senior mortgage underwriter outpatient today. He dislocated his shoulder during seizure and has been receiving pain medications so naltrexone is on hold. He appears comfortable, denies withdrawal sx. no tremor noted, BP elevated. Review of Systems Acute medical concerns: Yes Review of Systems Constitutional: Reports as per HPI and Reports no additional constitutional complaints Mental Status Exam Mental Status Exam Patient Appearance: Appropriate Patient Orientation: Person, Place, Time and Situation Level of Consciousness: Awake and Alert Patient Behavior: Appropriate and Talkative Mood Description: Calm Thought Process: Goal Oriented Judgement: Fair Diagnostics Vital Signs (24Hr): Vital Signs - 24 hr 04/20/22 05:10 04/20/22 07:46 04/20/22 12:52 Temperature 98.6 F 97.6 F 97.8 F Pulse Rate 125 H 84 89 Respiratory Rate 22 H 16 19 Blood Pressure 156/111 H 168/115 H 138/103 H Pulse Oximetry 95 97 94 Oxygen Delivery Method Room Air Room Air Room Air 04/20/22 14:48 Temperature 98.0 F Pulse Rate 88 Respiratory Rate 20 Blood Pressure 146/103 H Pulse Oximetry 94 Oxygen Delivery Method Room Air BMI result Body Mass Index 21.8 Labs 04/20/22 05:49 04/20/22 05:49 Labs: Laboratory Results - last 48 hr 04/20/22 04/20/22 04/20/22 05:49 05:49 05:49 WBC 11.3 H RBC 4.21 L Hgb 13.9 L Hct 39.0 L MCV 92.6 MCH 33.0 MCHC 35.6 RDW 12.4 Plt Count 148 L MPV 10.0 Immature Gran % (Auto) 0.7 H Neut % (Auto) 75.6 H Lymph % (Auto) 12.3 L [place] % (Auto) 9.2 Eos % (Auto) 1.7 Baso % (Auto) 0.5 Lymph # (Auto) 1.4 [place] # (Auto) 1.0 Eos # (Auto) 0.2 Baso # (Auto) 0.1 Abs Immat Gran (auto) 0.08 H Absolute Neuts (auto) 8.5 H Absolute Nucleated RBC 0.020 H Nucleated RBC % (auto) 0.2 Sodium 137 Potassium 3.2 L D Chloride 100 Carbon Dioxide 19 L Anion Gap 21 H BUN 6 L Creatinine 0.84 Estim Creat Clear Calc 105.8 Estimated GFR > 60 Random Glucose 148 H Calcium 8.9 Magnesium 1.1 L* Total Bilirubin 2.8 H Direct Bilirubin 0.8 H AST 53 H ALT 24 Alkaline Phosphatase 74 Troponin I High Sens < 3.5 Total Protein 7.4 Albumin 4.0 Lipase 19 Urine Color Urine Appearance Urine pH Ur Specific [place] Urine Protein Urine Glucose (UA) Urine Ketones Urine Blood Urine Nitrite Ur Leukocyte Esterase Urine RBC Urine WBC Ur Squamous Epith Cells Urine Bacteria Hyaline Casts Ethyl Alcohol < 10 COVID-19 ([facility]) COVID-19 Clin Com 04/20/22 04/20/22 04/20/22 05:49 08:01 13:40 WBC RBC Hgb Hct MCV MCH MCHC RDW Plt Count MPV Immature Gran % (Auto) Neut % (Auto) Lymph % (Auto) [place] % (Auto) Eos % (Auto) Baso % (Auto) Lymph # (Auto) [place] # (Auto) Eos # (Auto) Baso # (Auto) Abs Immat Gran (auto) Absolute Neuts (auto) Absolute Nucleated RBC Nucleated RBC % (auto) Sodium Potassium Chloride Carbon Dioxide Anion Gap BUN Creatinine Estim Creat Clear Calc Estimated GFR Random Glucose Calcium Magnesium 1.5 L Total Bilirubin Direct Bilirubin AST ALT Alkaline Phosphatase Troponin I High Sens Total Protein Albumin Lipase Urine Color Yellow Urine Appearance Clear Urine pH 6.0 Ur Specific [place] 1.015 Urine Protein 100 (2+) H Urine Glucose (UA) Negative Urine Ketones 15 Urine Blood Trace H Urine Nitrite Negative Ur Leukocyte Esterase Trace H Urine RBC 0-2 Urine WBC 6-10 H Ur Squamous Epith Cells 0-2 Urine Bacteria None Seen Hyaline Casts 0-2 Ethyl Alcohol COVID-19 ([facility]) Negative COVID-19 Clin Com See Note Imaging Radiology Impressions: ITS Impressions Chest X-Ray 04/20/22 05:40 IMPRESSION: No acute pulmonary disease. Large hiatal hernia. Shoulder X-Ray 04/20/22 05:41 IMPRESSION: Comminuted right humeral neck fracture with posterior dislocation of the humeral head component. Head CT 04/20/22 06:10 IMPRESSION: No acute intracranial pathology. Medications Medications Current Medications Acetaminophen (Acetaminophen 325 Mg Tablet) 650 mg PO Q6H PRN PRN Reason: Pain, Mild (Pain Scale 1-3) Cefuroxime Axetil (Cefuroxime Axetil 250 Mg Tablet) 250 mg PO BID [facility] Stop: 04/23/22 09:01 Last Admin: 04/20/22 14:07 Dose: 250 mg Docusate Sodium (Docusate Sodium 100 Mg Capsule) 100 mg PO DAILY PRN PRN Reason: Constipation Enoxaparin Sodium (Enoxaparin Sodium 40 Mg/0.4 Ml Syringe) 40 mg SUBCUT Q24H [facility] Last Admin: 04/20/22 14:07 Dose: 40 mg Ondansetron HCl (Ondansetron Hcl 4 Mg/2 Ml Vial) 4 mg IVPUSH Q8H PRN PRN Reason: Nausea and Vomiting Oxycodone HCl (Oxycodone Hcl Immed Release 5 Mg Tablet) 5 mg PO Q6H PRN PRN Reason: Pain, Severe (Pain Scale 7-10) Last Admin: 04/20/22 14:07 Dose: 5 mg Pharmacy Consult (Consult Rx Perform Med Rec) 1 each MISCELLANE ONCE PRN PRN Reason: Consult order Pharmacy Consult (Consult Rx Etoh Phenob Im/Po) 1 each MISCELLANE ONCE PRN; Protocol PRN Reason: Consult order Pharmacy Consult (Consult Rx Perform Med Rec) 1 each MISCELLANE ONCE PRN PRN Reason: Consult order Phenobarbital (Phenobarbital 30 Mg Tablet) 60 mg PO BID [facility]; Protocol Stop: 04/22/22 09:01 Phenobarbital (Phenobarbital 30 Mg Tablet) 30 mg PO BID [facility]; Protocol Stop: 04/24/22 09:01 Phenobarbital (Phenobarbital 30 Mg Tablet) 30 mg PO DAILY [facility]; Protocol Stop: 04/26/22 09:01 Sodium Chloride (0.9 % Sodium Chloride Flush 3 Ml Syringe) 3 ml IVFLUSH QSHIFT [facility] Allergies Allergies Allergy/AdvReac Type Severity Reaction Status Date / Time Iodinated Contrast Media Allergy Cough Verified 04/14/22 23:50 [IV Contrast Dye] Assessment & Plan Assessment & Plan (1) Alcohol withdrawal syndrome: Status: Acute Code(s): F10.939 - Alcohol use, unspecified with withdrawal, unspecified Assessment and Plan: * currently on phenobarb protocol * will continue to follow during this admission Total time managing care of this patient today _20___ minutes.
[2022-04-20] MEDS: 0.9 % Sodium Chloride Flush 3 ML SYRINGE IVFLUSH ×2 (18:30→21:00)
[2022-04-20 20:00] VITALS: BP 157/108; PULSE 54; RESP 16; TEMP 36.7; O2SAT 99
[2022-04-20] MEDS: Acetaminophen 325 MG TABLET 650 MG PO (20:57)
[2022-04-20] MEDS: PHENobarbitaL 30 MG TABLET 60 MG PO (20:58)
[2022-04-20 23:18] VITALS: BP 124/98; PULSE 101; RESP 16; TEMP 36.6; O2SAT 98
[2022-04-20] MEDS: diphenhydrAMINE HCL 25 MG CAPSULE 50 MG PO (23:51)
[2022-04-21 03:16] VITALS: BP 143/101; PULSE 93; RESP 17; TEMP 36.7; O2SAT 97
[2022-04-21] MEDS: oxyCODONE HCl Immed Release 5 MG TABLET PO ×3 (03:41→19:42)
[2022-04-21] MEDS: Acetaminophen 325 MG TABLET 650 MG PO (03:41)
[2022-04-21 06:38] LABS: MANUAL DIFF FLAG NO
[2022-04-21 06:45] LABS: Basophils Percent Auto 0.3 % (0-2); Eosinophils Absolute Auto 0.1 X10*3/uL (0.0-0.4); Eosinophils Percent Auto 0.5 % (0-4); Hematocrit 33.8 % (42.0-52.0); Hemoglobin 12.1 g/dl (14.0-18.0); Imm Gran Abs Auto 0.05 X10*3/uL (0.00-0.03); Imm Gran Pct Auto 0.3 % (0.0-0.4); Lymphocytes Absolute Auto 1.3 X10*3/uL (1.2-4.9); Lymphocytes Percent Auto 8.6 % (20-40); Mean Corpuscular HGB Conc 35.8 g/dl (31.0-36.0); Mean Corpuscular Hemoglobin 33.2 pg (27.0-33.0); Mean Corpuscular Volume 92.9 fL (80.0-98.0); Mean Platelet Volume 9.9 fL (9.4-12.4); Monocytes Absolute Auto 1.5 X10*3/uL (0.1-1.2); Monocytes Percent Auto 9.5 % (2-11); NRBC Pct Auto 0.1 /100WBC (0.0-0.2); Neutrophils Absolute Auto 12.7 x10*3/uL (2.0-8.3); Neutrophils Percent Auto 80.8 % (45-73); Platelet Count 155 X10*3/uL (160-400); Red Blood Count 3.64 X10*6/uL (4.60-5.80); Red Cell Distribution Width 12.4 % (11.0-16.0); White Blood Count 15.7 X10*3/uL (4.8-10.8)
[2022-04-21 07:01] LABS: Anion Gap 16 (12-20); Blood Urea Nitrogen 4 mg/dL (9-16); Calcium 8.4 mg/dL (8.4-10.2); Carbon Dioxide 22 mmol/L (22-29); Chloride 98 mmol/L (96-108); Creatinine Clr Calc Pharmacy 109.7; Estimated Glomerular Filt Rate > 60; Glucose Random 120 mg/dL (60-115); Potassium 3.5 mmol/L (3.3-5.1); Sodium 132 mmol/L (135-145)
[2022-04-21 07:07] LABS: Magnesium 1.3 mg/dL (1.6-2.6)
[2022-04-21 07:58] VITALS: BP 112/86; PULSE 125; RESP 20; TEMP 36.7; O2SAT 96
--- NOTE | 2022-04-21 08:01 | P.PNIM_ITS ---
Subjective Subjective Date of Service: 04/21/22 Interval History: Alcohol withdrawal, humerus fracture, UTI. Review of Systems still tramulous and anxious mild leucocytosis no fevers has arm pain Physical Exam Vital Signs: Vital Signs: Last Vital Signs Temp 98.1 F 04/21/22 03:16 Pulse 93 04/21/22 03:16 Resp 17 04/21/22 03:16 BP 143/101 H 04/21/22 03:16 Pulse Ox 97 04/21/22 03:16 O2 Del Method 04/21/22 03:16 BMI result Body Mass Index 21.8 Appearance: Alert.? Oriented X3.? Anxious and tremulous. cvs: rrr, [id number] , no murmur res: clear to auscultation ,no rhonchii or wheezing abd: no rebound or guarding ,nt, bs present. ext pulses present , no cyanosis . Right extremity pain and has sling neuro: axo3 , nonfocal. Objective Data Active Medications Acetaminophen (Acetaminophen 325 Mg Tablet) 650 mg PO Q6H PRN PRN Reason: Pain, Mild (Pain Scale 1-3) Last Admin: 04/21/22 03:41 Dose: 650 mg Documented By: COTEMA Cefuroxime Axetil (Cefuroxime Axetil 250 Mg Tablet) 250 mg PO BID [facility] Stop: 04/23/22 09:01 Last Admin: 04/20/22 20:57 Dose: 250 mg Documented By: LONG Docusate Sodium (Docusate Sodium 100 Mg Capsule) 100 mg PO DAILY PRN PRN Reason: Constipation Enoxaparin Sodium (Enoxaparin Sodium 40 Mg/0.4 Ml Syringe) 40 mg SUBCUT Q24H [facility] Last Admin: 04/20/22 14:07 Dose: 40 mg Documented By: REBECA Ondansetron HCl (Ondansetron Hcl 4 Mg/2 Ml Vial) 4 mg IVPUSH Q8H PRN PRN Reason: Nausea and Vomiting Oxycodone HCl (Oxycodone Hcl Immed Release 5 Mg Tablet) 5 mg PO Q6H PRN PRN Reason: Pain, Severe (Pain Scale 7-10) Last Admin: 04/21/22 03:41 Dose: 5 mg Documented By: LONG Pharmacy Consult (Consult Rx Perform Med Rec) 1 each MISCELLANE ONCE PRN PRN Reason: Consult order Pharmacy Consult (Consult Rx Etoh Phenob Im/Po) 1 each MISCELLANE ONCE PRN; Protocol PRN Reason: Consult order Pharmacy Consult (Consult Rx Perform Med Rec) 1 each MISCELLANE ONCE PRN PRN Reason: Consult order Phenobarbital (Phenobarbital 30 Mg Tablet) 60 mg PO BID [facility]; Protocol Stop: 04/22/22 09:01 Last Admin: 04/20/22 20:58 Dose: 60 mg Documented By: LONG Phenobarbital (Phenobarbital 30 Mg Tablet) 30 mg PO BID [facility]; Protocol Stop: 04/24/22 09:01 Phenobarbital (Phenobarbital 30 Mg Tablet) 30 mg PO DAILY [facility]; Protocol Stop: 04/26/22 09:01 Sodium Chloride (0.9 % Sodium Chloride Flush 3 Ml Syringe) [facility] Last Admin: 04/20/22 21:00 Dose: 3 ml Documented By: LONG Labs 04/21/22 06:33 04/21/22 06:33 Labs: Laboratory Results - last 24 hr 04/20/22 04/20/22 04/21/22 08:01 13:40 06:33 MCV 92.9 MCH 33.2 H MCHC 35.8 RDW 12.4 Plt Count 155 L MPV 9.9 Immature Gran % (Auto) 0.3 Neut % (Auto) 80.8 H Lymph % (Auto) 8.6 L [place] % (Auto) 9.5 Eos % (Auto) 0.5 Baso % (Auto) 0.3 Lymph # (Auto) 1.3 [place] # (Auto) 1.5 H Eos # (Auto) 0.1 Baso # (Auto) 0.0 Abs Immat Gran (auto) 0.05 H Absolute Neuts (auto) 12.7 H Absolute Nucleated RBC 0.020 H Nucleated RBC % (auto) 0.1 Anion Gap Estim Creat Clear Calc Estimated GFR Random Glucose Calcium Magnesium 1.5 L Urine Color Yellow Urine Appearance Clear Urine pH 6.0 Ur Specific [place] 1.015 Urine Protein 100 (2+) H Urine Glucose (UA) Negative Urine Ketones 15 Urine Blood Trace H Urine Nitrite Negative Ur Leukocyte Esterase Trace H Urine RBC 0-2 Urine WBC 6-10 H Ur Squamous Epith Cells 0-2 Urine Bacteria None Seen Hyaline Casts 0-2 04/21/22 06:33 MCV MCH MCHC RDW Plt Count MPV Immature Gran % (Auto) Neut % (Auto) Lymph % (Auto) [place] % (Auto) Eos % (Auto) Baso % (Auto) Lymph # (Auto) [place] # (Auto) Eos # (Auto) Baso # (Auto) Abs Immat Gran (auto) Absolute Neuts (auto) Absolute Nucleated RBC Nucleated RBC % (auto) Anion Gap 16 Estim Creat Clear Calc 109.7 Estimated GFR > 60 Random Glucose 120 H Calcium 8.4 Magnesium 1.3 L* Urine Color Urine Appearance Urine pH Ur Specific [place] Urine Protein Urine Glucose (UA) Urine Ketones Urine Blood Urine Nitrite Ur Leukocyte Esterase Urine RBC Urine WBC Ur Squamous Epith Cells Urine Bacteria Hyaline Casts Assessment and Plan (1) Alcohol withdrawal seizure: Status: Acute (2) Closed right humeral fracture: Status: Acute (3) Alcohol withdrawal syndrome: Status: Acute (4) Hypomagnesemia: Status: Acute (5) Alcohol dependence: Status: Acute (6) Acute hypokalemia: Status: Acute (7) Hyponatremia: Status: Acute Plan Hospital day 1: 56 year old male with history alcohol dependence admitted for alcohol withdrawal seizure. 1.Alcohol dependence with acute withdrawal and withdrawal seizure Still anxious and tremulous. Tachycardia r/t withdrawal, not infection/sepsis. Leukocytosis likely reactive following seizure, not sepsis monitor on CIWA scale and telemetry,seizure precautions, Hold naltrexone and chlordiazepoxide in inpt setting. On phenobarb. continue phenobarbital per protocol,added another dose of im phenobarbital. addiction medicine consult.? Desires detox and follows with [facility] outpt. 2.Hypomagnesemia- r/t etoh use Mag 1.1. Given 2g IV mag in ED. Mag low in am -added iv and po replacements . 3.Hypokalemia K 3.2. Repleted in ED and resolved. 4.Acute UTI- sx improving Continue cefuroxime BID x7 days (started 04/15) 5.Closed right humeral and scapular fracture ?CT head was negative shoulder x-ray showed communicate did right humeral fracture with posterior dislocation evaluated by Orthopedics in the ED,no further inpatient intervention needed.? Will require outpatient follow-up -continue shoulder immobilizer/sling,pain management with tylenol and oxycodone 6. hyperbilirubinemia -related to alcohol liver disease, not severe sepsis moniter hepatic panel 7. mild hyponatremia : possible sec to dec po intake /fluids moniter renal function and electrolytes. DVT prophylaxis-Lovenox inpatient need:Alcohol dependence with acute withdrawal -on phenobarb protocol, see vomiting. Multiple electrolytic abnormalities- Also need electrolytic monitoring and replacement. Time Spent With Patient Time: Total time managing care of this patient today ____ minutes. Quality Stroke Does the patient have a stroke diagnosis?: No VTE Prior VTE?: No VTE Risk Level:: Medical - moderate - high VTE Device Contraindication: Treatment Not Indicated VTE Drug Contraindication: N/A - Med Ordered
--- NOTE | 2022-04-21 09:23 | MHC.CM.PN ---
met with pt and his s/0 with whom he lives pt is jennifer quickx x 2 will be seen by care team and has his own ride home
[2022-04-21] MEDS: Magnesium Sulfate/D5W 1 GM/100 ML PIGGYBACK IV (09:31)
[2022-04-21] MEDS: Potassium Chloride Packet 20 MEQ PACKET PO (09:31)
[2022-04-21] MEDS: PHENobarbitaL 30 MG TABLET 60 MG PO ×2 (09:32→19:43)
[2022-04-21] MEDS: Magnesium Oxide 400 MG TABLET PO ×2 (09:32→17:46)
[2022-04-21] MEDS: 0.9 % Sodium Chloride Flush 3 ML SYRINGE IVFLUSH ×2 (09:39→17:46)
--- NOTE | 2022-04-21 10:18 | PC.NURSE ---
pt refusing all bed and chair alarms. pt is inconsistent about ringing for assistance with ambulation. Education given regarding safety protocols.
[2022-04-21 12:00] VITALS: BP 118/73; PULSE 108; RESP 20; TEMP 36.2; O2SAT 96
[2022-04-21] MEDS: PHENobarbitaL sodium 130 MG/ML VIAL 65 MG IM (12:04)
[2022-04-21] MEDS: Enoxaparin Sodium 40 MG/0.4 ML SYRINGE SUBCUT (12:06)
--- NOTE | 2022-04-21 14:03 | MHC.RECOVRN ---
Met with pt in 459 to follow up and provide support. Pt laying in bed, awake, alert, easily engages in conversation, partner present. Pt states I'm good. I just have the shakes a little. Pt reports he should be dc in 2-3 days and will return home. Discussed naltrexone and reiterated education regarding the medication and opioid pain relievers. Pt reports pain management is adequate at this time. Denies questions or concerns for t/w.
[2022-04-21 16:00] VITALS: BP 114/84; PULSE 95; RESP 16; TEMP 36.6; O2SAT 95
[2022-04-21 20:00] VITALS: BP 140/70; PULSE 108; RESP 15; TEMP 37.1; O2SAT 97
[2022-04-21 23:58] VITALS: BP 110/72; PULSE 124; RESP 18; TEMP 37.2; O2SAT 98
[2022-04-22] MEDS: 0.9 % Sodium Chloride Flush 3 ML SYRINGE IVFLUSH ×3 (00:53→15:17)
[2022-04-22] MEDS: hydrOXYzine HCL 50 MG TABLET PO (02:52)
[2022-04-22 03:41] VITALS: BP 112/77; PULSE 102; RESP 16; TEMP 36.6; O2SAT 97
[2022-04-22] MEDS: oxyCODONE HCl Immed Release 5 MG TABLET PO ×2 (03:49→20:37)
[2022-04-22 07:53] LABS: Hematocrit 31.2 % (42.0-52.0); Hemoglobin 10.9 g/dl (14.0-18.0); Mean Corpuscular HGB Conc 34.9 g/dl (31.0-36.0); Mean Corpuscular Volume 94.5 fL (80.0-98.0); Mean Platelet Volume 10.4 fL (9.4-12.4); Platelet Count 166 X10*3/uL (160-400); Red Cell Distribution Width 12.9 % (11.0-16.0)
[2022-04-22 07:56] VITALS: BP 123/77; PULSE 99; RESP 18; TEMP 36.6; O2SAT 98
[2022-04-22 08:11] LABS: Anion Gap 13 (12-20); Blood Urea Nitrogen 7 mg/dL (9-16); Calcium 8.2 mg/dL (8.4-10.2); Carbon Dioxide 25 mmol/L (22-29); Chloride 98 mmol/L (96-108); Creatinine Clr Calc Pharmacy 111.1; Estimated Glomerular Filt Rate > 60; Glucose Random 100 mg/dL (60-115); Magnesium 1.8 mg/dL (1.6-2.6); Potassium 3.3 mmol/L (3.3-5.1); Sodium 133 mmol/L (135-145)
--- NOTE | 2022-04-22 08:25 | HO.PM.IMPN ---
Subjective Subjective Date of Service: 04/22/22 Interval History: Alcohol withdrawal, humerus fracture, UTI. Review of Systems still tramulous and anxious mild leucocytosis improvin no fevers has arm pain Physical Exam Vital Signs: Vital Signs: Last Vital Signs Temp 97.8 F 04/22/22 07:56 Pulse 99 04/22/22 07:56 Resp 18 04/22/22 07:56 BP 123/77 04/22/22 07:56 Pulse Ox 98 04/22/22 07:56 O2 Del Method 04/22/22 07:56 BMI result Body Mass Index 21.8 Appearance: Alert.? Oriented X3.? Anxious and tremulous. cvs: rrr, [id number] , no murmur res: clear to auscultation ,no rhonchii or wheezing abd: no rebound or guarding ,nt, bs present. ext pulses present , no cyanosis . Right extremity pain and has sling neuro: axo3 , nonfocal. Objective Data Active Medications Acetaminophen (Acetaminophen 325 Mg Tablet) 650 mg PO Q6H PRN PRN Reason: Pain, Mild (Pain Scale 1-3) Last Admin: 04/21/22 03:41 Dose: 650 mg Documented By: COTEMA Cefuroxime Axetil (Cefuroxime Axetil 250 Mg Tablet) 250 mg PO BID [facility] Stop: 04/23/22 09:01 Last Admin: 04/21/22 19:42 Dose: 250 mg Documented By: NICHO Docusate Sodium (Docusate Sodium 100 Mg Capsule) 100 mg PO DAILY PRN PRN Reason: Constipation Enoxaparin Sodium (Enoxaparin Sodium 40 Mg/0.4 Ml Syringe) 40 mg SUBCUT Q24H [facility] Last Admin: 04/21/22 12:06 Dose: 40 mg Documented By: GISSELLE Magnesium Oxide (Magnesium Oxide 400 Mg Tablet) 400 mg PO BIDPC [facility] Last Admin: 04/21/22 17:46 Dose: 400 mg Documented By: GISSELLE Ondansetron HCl (Ondansetron Hcl 4 Mg/2 Ml Vial) 4 mg IVPUSH Q8H PRN PRN Reason: Nausea and Vomiting Oxycodone HCl (Oxycodone Hcl Immed Release 5 Mg Tablet) 5 mg PO Q6H PRN PRN Reason: Pain, Severe (Pain Scale 7-10) Last Admin: 04/22/22 03:49 Dose: 5 mg Documented By: NICHO Pharmacy Consult (Consult Rx Perform Med Rec) 1 each MISCELLANE ONCE PRN PRN Reason: Consult order Pharmacy Consult (Consult Rx Etoh Phenob Im/Po) 1 each MISCELLANE ONCE PRN; Protocol PRN Reason: Consult order Pharmacy Consult (Consult Rx Perform Med Rec) 1 each MISCELLANE ONCE PRN PRN Reason: Consult order Phenobarbital (Phenobarbital 30 Mg Tablet) 60 mg PO BID [facility]; Protocol Stop: 04/22/22 09:01 Last Admin: 04/21/22 19:43 Dose: 60 mg Documented By: NICHO Phenobarbital (Phenobarbital 30 Mg Tablet) 30 mg PO BID [facility]; Protocol Stop: 04/24/22 09:01 Phenobarbital (Phenobarbital 30 Mg Tablet) 30 mg PO DAILY [facility]; Protocol Stop: 04/26/22 09:01 Sodium Chloride (0.9 % Sodium Chloride Flush 3 Ml Syringe) 3 ml IVFLUSH [facility] Last Admin: 04/22/22 00:53 Dose: 3 ml Documented By: NICHO Labs 04/22/22 06:44 04/22/22 06:44 Labs: Laboratory Results - last 24 hr 04/22/22 04/22/22 06:44 06:44 MCV 94.5 MCH 33.0 MCHC 34.9 RDW 12.9 Plt Count 166 MPV 10.4 Absolute Nucleated RBC 0.000 Nucleated RBC % (auto) 0.0 Anion Gap 13 Estim Creat Clear Calc 111.1 Estimated GFR > 60 Random Glucose 100 Calcium 8.2 L Magnesium 1.8 Microbiology Microbiology Results: Microbiology 04/20/22 Unknown Urine Culture - Final Urine clean catch - Urine nichols top No growth. Assessment and Plan (1) Alcohol withdrawal seizure: Status: Acute (2) Closed right humeral fracture: Status: Acute (3) Alcohol withdrawal syndrome: Status: Acute (4) Hypomagnesemia: Status: Acute (5) Alcohol dependence: Status: Acute (6) Acute hypokalemia: Status: Acute (7) Hyponatremia: Status: Acute Plan Hospital day 1: 56 year old male with history alcohol dependence admitted for alcohol withdrawal seizure. 1.Alcohol dependence with acute withdrawal and withdrawal seizure Still anxious and tremulous. Tachycardia r/t withdrawal, not infection/sepsis. Leukocytosis likely reactive following seizure, not sepsis monitor on CIWA scale and telemetry,seizure precautions, Hold naltrexone and chlordiazepoxide in inpt setting. On phenobarb. continue phenobarbital per protocol addiction medicine consult.? Desires detox and follows with [facility] outpt. 2.Hypomagnesemia- r/t etoh use Mag 1.1. Given 2g IV mag in ED,also received in magnesium yesterday continue po replacements . 3.Hypokalemia K 3.2. Repleted in ED and resolved. 4.Acute UTI- sx improving Continue cefuroxime BID x7 days (started 04/15) 5.Closed right humeral and scapular fracture ?CT head was negative shoulder x-ray showed communicate did right humeral fracture with posterior dislocation evaluated by Orthopedics in the ED,no further inpatient intervention needed.? Will require outpatient follow-up still has pain continue shoulder immobilizer/sling,pain management with tylenol and oxycodone, also need ortho follow up. 6. hyperbilirubinemia: improving related to alcohol liver disease, not severe sepsis moniter lft's 7. mild hyponatremia : possible sec to dec po intake /fluids moniter renal function and electrolytes. DVT prophylaxis-Lovenox inpatient need:Alcohol dependence with acute withdrawal -on phenobarb protocol, see vomiting. Multiple electrolytic abnormalities- Also need electrolytic monitoring and replacement. Time Spent With Patient Time: Total time managing care of this patient today ____ minutes. Quality Stroke Does the patient have a stroke diagnosis?: No VTE Prior VTE?: No VTE Risk Level:: Medical - moderate - high VTE Device Contraindication: Treatment Not Indicated VTE Drug Contraindication: N/A - Med Ordered
[2022-04-22 08:42] LABS: Alanine Aminotransferase 17 U/L (0-40); Albumin Level 3.5 g/dL (3.5-5.0); Alkaline Phosphatase 61 U/L (39-117); Aspartate Amino Transferase 51 U/L (5-37); Bilirubin Direct 0.5 mg/dL (0.0-0.5); Bilirubin Total 1.6 mg/dL (0.0-1.0); Total Protein 6.2 g/dL (6.5-8.0)
[2022-04-22] MEDS: PHENobarbitaL 30 MG TABLET 60 MG PO (08:50)
[2022-04-22] MEDS: Magnesium Oxide 400 MG TABLET PO ×2 (08:51→15:17)
[2022-04-22 11:04] VITALS: BP 104/70; PULSE 100; RESP 18; TEMP 36.9; O2SAT 96
[2022-04-22] MEDS: Enoxaparin Sodium 40 MG/0.4 ML SYRINGE SUBCUT (12:32)
--- NOTE | 2022-04-22 14:57 | MHC.CM.PN ---
per rounds no identified dc date at this time plan is home w/ care team recommendations
[2022-04-22 15:12] VITALS: BP 116/81; PULSE 98; RESP 17; TEMP 37.1; O2SAT 98
[2022-04-22 19:12] VITALS: BP 137/88; PULSE 97; RESP 17; TEMP 36.7; O2SAT 96
[2022-04-22] MEDS: PHENobarbitaL 30 MG TABLET PO (20:30)
[2022-04-22] MEDS: Acetaminophen 325 MG TABLET 650 MG PO (20:38)
[2022-04-22] MEDS: traZODone HCL 50 MG TABLET PO (20:45)
[2022-04-22] MEDS: diphenhydrAMINE HCL 25 MG CAPSULE PO (20:45)
[2022-04-22 23:48] VITALS: BP 115/71; PULSE 110; RESP 18; TEMP 37.1; O2SAT 98
[2022-04-23 04:00] VITALS: BP 112/78; PULSE 107; RESP 18; TEMP 37.1; O2SAT 96
[2022-04-23 06:41] LABS: Hematocrit 28.4 % (42.0-52.0); Hemoglobin 9.9 g/dl (14.0-18.0); Mean Corpuscular HGB Conc 34.9 g/dl (31.0-36.0); Mean Corpuscular Hemoglobin 33.4 pg (27.0-33.0); Mean Corpuscular Volume 95.9 fL (80.0-98.0); Mean Platelet Volume 9.3 fL (9.4-12.4); Platelet Count 176 X10*3/uL (160-400); Red Blood Count 2.96 X10*6/uL (4.60-5.80); Red Cell Distribution Width 13.2 % (11.0-16.0)
[2022-04-23 06:58] LABS: Alanine Aminotransferase 21 U/L (0-40); Albumin Level 3.2 g/dL (3.5-5.0); Alkaline Phosphatase 57 U/L (39-117); Anion Gap 13 (12-20); Aspartate Amino Transferase 45 U/L (5-37); Bilirubin Direct 0.5 mg/dL (0.0-0.5); Bilirubin Total 1.3 mg/dL (0.0-1.0); Blood Urea Nitrogen 6 mg/dL (9-16); Calcium 8.2 mg/dL (8.4-10.2); Carbon Dioxide 26 mmol/L (22-29); Chloride 97 mmol/L (96-108); Creatinine Clr Calc Pharmacy 118.5; Estimated Glomerular Filt Rate > 60; Glucose Random 109 mg/dL (60-115); Potassium 3.6 mmol/L (3.3-5.1); Sodium 132 mmol/L (135-145); Total Protein 5.9 g/dL (6.5-8.0)
[2022-04-23 07:48] VITALS: BP 122/77; PULSE 105; RESP 16; TEMP 37.5; O2SAT 97
[2022-04-23] MEDS: 0.9 % Sodium Chloride Flush 3 ML SYRINGE IVFLUSH (09:35)
[2022-04-23] MEDS: PHENobarbitaL 30 MG TABLET PO (09:35)
[2022-04-23] MEDS: Magnesium Oxide 400 MG TABLET PO (09:36)
[2022-04-23] MEDS: oxyCODONE HCl Immed Release 5 MG TABLET PO (09:41)
--- NOTE | 2022-04-23 10:20 | PM.PNORT ---
Subjective Subjective Date of Service: 04/23/22 Interval history: Patient resting in bed comfortably. Right upper extremity in a sling. Pain is managed. No additional complaints. Physical Exam Vital Signs: Vital Signs: Last Vital Signs Temp 99.5 F 04/23/22 07:48 Pulse 105 H 04/23/22 07:48 Resp 16 04/23/22 07:48 BP 122/77 04/23/22 07:48 Pulse Ox 97 04/23/22 07:48 O2 Del Method 04/23/22 07:48 BMI result Body Mass Index 21.8 Const: General: cooperative, healthy appearing and no acute distress Resp: Effort & Inspection: normal respiratory effort and able to speak in complete sentences Cardio: Rate: regular rate Peripheral pulses: Peripheral pulses 2+ throughout GI: Palpation (GI): Soft to palpation Skin: Lesions: no lesions Rashes: no rashes Extrem: Other: Right shoulder no ecchymosis, erythema or edema. Able to perform elbow ROM. Able to demonstrate wrist flexion, extension, finger cross, abduction, adduction, finger cross, and okay sign. Sensation is intact. Capillary refill is brisk. Procedures Date of Service Date of Service: 04/23/22 Progress Note: A&P Assessment and plan (1) Alcohol withdrawal seizure: Status: Acute (2) Alcohol dependence: Status: Acute (3) Alcohol withdrawal syndrome: Status: Acute (4) Closed right humeral fracture: Status: Acute Plan Sling for comfort - Make sure wrist is not dropping out of sling - would benifit from the waist band Pain management as needed Gentle ROM of the elbow, hand and wrist - exercises demonstrated to the patient Elevate hand to prevent swelling Orthopedics outpatient f/u No additional orthopedic intervention is needed at this time Time Spent With Patient Time: Total time managing care of this patient today ____ minutes. Quality Stroke Does the patient have a stroke diagnosis?: No VTE Prior VTE?: No VTE Risk Level:: Medical - moderate - high VTE Device Contraindication: Treatment Not Indicated VTE Drug Contraindication: N/A - Med Ordered
[2022-04-23] MEDS: Acetaminophen 325 MG TABLET 650 MG PO (10:49)
--- NOTE | 2022-04-23 11:08 | PM.DS ---
DS: Providers Provider Date of Service: 04/23/22 Date of admission: 04/20/22 12:56 Date of discharge: 04/23/22 Primary care physician: Prachi Nguyễn NP Consults: 04/20/22 13:20 Addiction Medicine Routine Consulting Provider: Addiction Covering Reason for consultation: alcohol dependence- already following with [facility] Attending physician on discharge: Curry Baez Discharging clinician: Sri Reza DS: Diagnosis Discharge Diagnosis (1) Alcohol withdrawal seizure: Status: Acute (2) Alcohol dependence: Status: Acute (3) Alcohol withdrawal syndrome: Status: Acute (4) Closed right humeral fracture: Status: Acute DS: Summary Hospital Course Hospital Course: From H&P on day of admission 56-year-old with history of alcohol dependence noted to have seizure in bed witnessed by lucas, she heard a crunching sound from right shoulder associated with convulsion that lasted for 2 minutes patient was trying to wean alcohol uses loss short was the day prior to this event therefore she called ambulance and brought patient to [facility] where he was noted to be tachypneic tachycardic and hypertensive with mild leukocytosis patient is being treated for UTI recently diagnosed at emergency room and is on Ceftin patient denies fever chills complain of urinary frequency workup in the ER head CT was negative shoulder x-ray showed communicate did right humeral fracture with posterior dislocation patient seen by orthopedic surgeon and sling has been placed Ortho recommend outpatient follow-up On exam patient awake alert in no distress Right upper extremity in sling Neuro bilateral tremors otherwise nonfocal Patient will be admitted to [facility] due to her alcohol withdrawal seizure on phenobarb patient also related to have hypo magnesemia hypokalemia related to alcohol use that will be repleted patient will be continued on Ceftin for UTI will obtain care team evaluation strongly recommend to abstain from alcohol. patient was admitted for Alcohol dependence with acute withdrawal and withdrawal seizure. He was placed on phenobarbital Protocol. Outpatient naltrexone and chlordiazepoxide were placed on hold during the inpatient setting. He was seen in consultation by Addiction Medicine who recommended to continue to hold these medications on discharge as he will be treated with a few days of pain medication. the patient is encouraged to follow up in the [facility] upon discharge to determine treatment plan. Electrolytes were replaced and have improved. For right humeral fracture, patient was seen in consultation by Orthopedics, no acute surgical intervention was required. Recommend sling and orthopedic follow-up in 2 weeks time. Recommend complete cessation from alcohol. UTI diagnosed prior to admission. 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 trending down. outpatient follow up moniter lft's mild hyponatremia : possible sec to dec po intake /fluids. sodium 132 on day of d/c Time Spent with Patient Time attestation: Total time managing care of this patient today ____ minutes. Discharge coordination time: Greater than 30 minutes Quality: Safe Use of Opioids Does Pt have an Active Cancer Diagnosis on the Problem List?: No Quality: Stroke Does the patient have a stroke diagnosis?: No Physical Exam Vital Signs: Vital Signs: Last Vital Signs Temp 99.5 F 04/23/22 07:48 Pulse 105 H 04/23/22 07:48 Resp 16 04/23/22 07:48 BP 122/77 04/23/22 07:48 Pulse Ox 97 04/23/22 07:48 O2 Del Method 04/23/22 07:48 BMI result Body Mass Index 21.8 Const: General: cooperative, comfortable, alert and awake Nutritional Appearance: thin Orientation/consciousness: patient oriented x3 Resp: Effort & Inspection: normal respiratory effort and able to speak in complete sentences Cardio: Other: mild tachycardia Heart sounds: S1 normal heart sound present and S2 normal heart sound present GI: Inspection: No distended Palpation (GI): Soft to palpation Neuro: General: patient oriented x3 Extrem: Other: right arm in sling DS: Data Data Completed and Pending Labs on day of discharge: Laboratory Results - last 24 hr 04/23/22 04/23/22 06:19 06:19 WBC 13.0 H RBC 2.96 L Hgb 9.9 L Hct 28.4 L MCV 95.9 MCH 33.4 H MCHC 34.9 RDW 13.2 Plt Count 176 MPV 9.3 L Absolute Nucleated RBC 0.000 Nucleated RBC % (auto) 0.0 Sodium 132 L Potassium 3.6 Chloride 97 Carbon Dioxide 26 Anion Gap 13 BUN 6 L Creatinine 0.75 Estim Creat Clear Calc 118.5 Estimated GFR > 60 Random Glucose 109 Calcium 8.2 L Total Bilirubin 1.3 H Direct Bilirubin 0.5 AST 45 H ALT 21 Alkaline Phosphatase 57 Total Protein 5.9 L Albumin 3.2 L Discharge Plan Discharge Anticipated Discharge Date/Time: 04/23/22 11:06 Patient Disposition: Home, Self-Care Discharge Diagnosis: alcohol withdrawal Right humerus fracture low k low mag Referrals: Micki Guy PA-C [Physician [employer]] - 2 Weeks Prachi Nguyễn NP [Primary Care Provider] - 1 Week Elmira Meneses CNP [Nurse Practitioner] - 1 Week Discharge Medications: New oxycodone 5 mg tablet 5 mg PO Q8H PRN (Reason: pain (scale score 7-10)) Qty: 10 0RF Rx Instructions: Partial Fill upon patient request. Discontinued naltrexone 50 mg tablet 50 mg PO DAILY 30 Days Qty: 29 0RF Rx Instructions: Take 1/2 a tab on day 1 and day 2 followed by full tab daily for the remainder of 28 days cefuroxime axetil 250 mg tablet 250 mg PO BID 7 Days Qty: 14 0RF Rx Instructions: STARTED ON 04/16 chlordiazepoxide HCl 25 mg capsule 1 cap PO Q8-12H PRN (Reason: withdrawal symptom) Discharge Orders: Discharge Order (Routine); Ordered 04/23/22 Ordered By: Sri Reza Activity on Discharge: sling Stand Alone Forms: Patient Portal Discharge page Care Plan Goals: maintain sobriety from alcohol Health Concerns: alcohol withdrawal/alcohol withdrawal seizure low potassium low magnesium right humerus fracture/shoulder dislocation Plan of Treatment: Call to schedule follow up appointment with PCP For humerus fracture: Call to schedule follow up appointment with orthopedics. Sling for comfort - Make sure wrist is not dropping out of sling Gentle ROM of the elbow, hand and wrist - exercises demonstrated by ortho Elevate hand to prevent swelling Do not take naltrexone or chlordiazepoxide - call to schedule follow up in the [facility] to determine plan for further management Do NOT drink alcohol Do NOT mix alcohol and pain medicaion For UTI - completed course of antibiotics Assessment: See discharge summary Discharge Date/Time: 04/23/22 12:55
--- NOTE | 2022-04-23 11:41 | MHC.CM.PN ---
DP: PT HAS BEEN MEDICALLY CLEARED FOR DC HOME, NO SERVICES. RN AWARE. PT HAS RIDE HOME.
== END 2022-04-23 12:55 | disposition home or self-care (01) | DRG 463 ==
LOC: HO.ED 06:52 → HO.EDOVER 13:27 → HO.IMC 15:42
PROVIDERS: Internal Medicine; Admitting Provider Physician Assistant; Emergency Provider Emergency Medicine; PCP Nurse Practitioner Family; Visit Provider Physician Assistant Medical
DX: N39.0 Urinary tract infection, site not specified (principal); R56.9 Unspecified convulsions; K70.9 Alcoholic liver disease, unspecified; E87.1 Hypo-osmolality and hyponatremia; E87.6 Hypokalemia; E83.42 Hypomagnesemia; S42.101A Fracture of unspecified part of scapula, right shoulder, initial encounter for closed fracture; S42.291A Other displaced fracture of upper end of right humerus, initial encounter for closed fracture; X58.XXXA Exposure to other specified factors, initial encounter; F10.239 Alcohol dependence with withdrawal, unspecified; Z20.822 Contact with and (suspected) exposure to COVID-19; Z91.041 Radiographic dye allergy status; Z88.5 Allergy status to narcotic agent
CPT/HCPCS: 36415; 70450; 71045; 73030; 80048; 80076; 81001; 82077; 83690; 83735; 84484; 85025; 85027; 87086; 87635; 93005; 99285; J1650; J2270; J2560; J3475

== ENCOUNTER → 2022-04-29 09:09 | Outpatient (BNVA) | payer MEDICAID, SELFPAY | PROVIDERS: PCP Nurse Practitioner Family; Visit Provider Nurse Practitioner Psychiatric/Mental Health | DX: F10.20 Alcohol dependence, uncomplicated (principal) | CPT/HCPCS: 99202 ==

== ENCOUNTER 2022-05-07 12:28 | Outpatient (REF) | payer MEDICAID, SELFPAY ==
--- NOTE | ~2022-05-07 | XR_ITS ---
EXAMINATION: XR SHOULDER, RIGHT CLINICAL INFORMATION: Pain. COMPARISON: Radiographs dated 04/20/2022. TECHNIQUE: AP neutral and scapular Y views of the right shoulder are submitted. FINDINGS: A comminuted, impacted fracture of the right humeral surgical neck is redemonstrated. Again, there is posterior displacement of the humeral head, with the glenohumeral joint again dislocated. There is very mild new callus formation. The acromioclavicular and coracoclavicular intervals are normal. There is mild osteoarthritic change of the acromioclavicular joint. No focal soft tissue calcification or foreign body is seen. There is no right pneumothorax. XR/XR shoulder RT min 2V IMPRESSION: There is stable alignment of a comminuted, impacted right humeral neck fracture. There is again posterior dislocation of the right humeral head fragment. There is very mild new callus formation.
== END 2022-05-07 12:29 | disposition home or self-care (01) ==
LOC: HO.HOSX 12:28
PROVIDERS: Visit Provider Physician Assistant
DX: S42.201D Unspecified fracture of upper end of right humerus, subsequent encounter for fracture with routine healing (principal); F10.20 Alcohol dependence, uncomplicated; X58.XXXD Exposure to other specified factors, subsequent encounter
CPT/HCPCS: 73030; 99212

== ENCOUNTER 2022-06-04 14:28 | Outpatient (REF) | payer MEDICAID, SELFPAY | END 2022-06-04 14:29 | disposition home or self-care (01) | LOC: HO.HOSX 14:28 | PROVIDERS: Visit Provider Physician Assistant | DX: Z13.89 Encounter for screening for other disorder (principal) ==

== ENCOUNTER 2022-08-22 08:59 | Inpatient (IN) | payer OTHER, SELFPAY ==
--- NOTE | ~2022-08-22 | CT_ITS ---
EXAMINATION: CT brain and CT cervical spine without IV contrast. CLINICAL INDICATIONS: Seizure, fall and head strike. COMPARISON: CTA head and neck 04/14/2022. TECHNIQUE: 5 mm thin axial and reformatted 2 mm thin sagittal coronal images of brain were obtained. Subsequently axial 3 mm thin and reformatted 2 mm thin sagittal coronal images of cervical spine were obtained. DLP 1025. This CT examination was performed using dose optimization technique as appropriate, variously including the following: Automated exposure control Adjustment of MA and/or KV according to patient size(this includes techniques or standardized protocols for targeted exams where dose is matched to indication/reason for exam; extremities or head. Use of iterative reconstruction techniques. FINDINGS: Brain: There is no acute intra-axial, extra-axial bleed, masses or midline shift. There is no acute infarction evolution. No edema. The nichols to white matter difference is maintained. The lateral ventricles are symmetrical in size and configuration without enlargement. Bone windows reveal right frontal lobe midline bony spur. No acute fracture or scalp soft tissue abnormality. Bilateral paranasal sinuses and mastoid air cells are well-aerated. Cervical spine: There is mild straightening of cervical lordosis. There is grade 1 anterolisthesis C4 over C5 and grade 1 retrolisthesis C6 over C7. The craniovertebral junction and C1-C2 alignment is normal. There is no visible acute fracture, dislocation or subluxation. There is moderate left C4-C5, and mild bilateral C5-C6 facet joint arthropathy. The lung apices are clear. There is widely patent. CT/CT cervical spine wo IV con IMPRESSION: 1. No acute intracranial process seen. 2. There is no acute fracture, dislocation or subluxation in cervical spine. There is grade 1 anterolisthesis C4 over C5 and grade 1 retrolisthesis C6 over C7.
[2022-08-22 09:16] VITALS: BP 139/95; BP 150/97; PULSE 104; PULSE 108; RESP 22; TEMP 36.6; O2SAT 93; O2SAT 97; BMI 19.8
[2022-08-22] MEDS: 0.9 % Sodium Chloride 1,000 ML 999 ML IVCONT ×2 (09:23→11:22)
--- NOTE | 2022-08-22 09:23 | ED_ITS ---
HPI - Seizure General Chief Complaint: Seizure Stated Complaint: AFTAB SAMEER, POSTICTAL Time Seen by Provider: 08/22/22 09:21 Source: patient, EMS and old records reviewed Mode of arrival: EMS Limitations: no limitations History of Present Illness HPI Narrative: 56-year-old male with history alcohol use disorder, alcohol withdrawal seizures, who presents to the ER via EMS from home for evaluation of a witnessed seizure at home. His fiance said she head a loud bang in the bathroom and when she went into the bathroom she found the patient on the floor between the wall and the toilet. She states he fell off of the toilet and hit his head on the porcelin. He was having tonic clonic movements that stopped spontaneously after about 1-2 minutes. He was confused and lethargic afterward, EMS was called. Patient and fiance confirm his last alcoholic drink was yesterday at 4pm and that he drank a few beers and 4-5 fireball shots. He usually drinks a few beers and up to 10 nips of fireball per day. On arrival to the ER patient is AAO x3, denies any physical complaints. He has slight tremor to the hands and tongue fascinations. MD complaint: seizure Onset (ago): minute(s) Description of Episode: loss of consciousness, tonic-clonic movement and post- event confusion Duration of episode: 2 -: minutes(s) Witnessed: Yes - by Bystander Trauma: Yes Seizure History: Yes Place: Home Possible Precipitating Event: alcohol withdrawal Associated symptoms: denies other symptoms Treatments prior to arrival: none Related Data Allergies Allergy/AdvReac Type Severity Reaction Status Date / Time Iodinated Contrast Media Allergy Cough Verified 08/22/22 09:16 [IV Contrast Dye] Review of Systems Review of Systems: Yes all other systems are reviewed and are negative [facility] Past Medical History Medical History (Updated 08/22/22 @ 11:21 by NICKO Christianson) Alcohol dependence Alcohol withdrawal seizure Social History Social History Household Members: Significant Other Housing: Apartment Do you presently have visiting nurse or other home services: No Alcohol intake: current Alcohol intake frequency: 3 or more drinks per day Alcohol type: beer and hard liquor Patient Tobacco Use Status: Current someday Tobacco user Tobacco use type: Cigarette Smoked in Last 30 Days: No e-Cigarette/Vaping Use: Never Used Second Hand Smoke Exposure: No Use of substances other than those prescribed or required for medical reasons: No Substance Use Type: Marijuana Advance Directives: Yes Advance Directives on File: Yes Advance Directives Date on File: 02/17/22 service: No Physical Exam Vital Signs: Vital Signs: Last Vital Signs Temp 97.8 F 08/22/22 09:16 Pulse 94 08/22/22 11:16 Resp 18 08/22/22 11:16 BP 137/96 H 08/22/22 11:16 Pulse Ox 96 08/22/22 11:16 O2 Del Method Room Air 08/22/22 11:16 BMI result Body Mass Index 19.8 Appearance: Alert. Oriented X3. No acute distress. Head: normocephalic, atraumatic. Eyes: Pupils equal, round and reactive to light. ENT: Pharynx normal. No tonsillar swelling or exudate. Tongue fasiculations present Neck: Normal inspection. Neck supple. Normal ROM, no midline tenderness. CVS: Normal heart rate and rhythm. Pulses normal. Respiratory: No respiratory distress. Breath sounds normal. Abdomen: Soft and nontender. +BS x4 Skin: Skin warm and dry. Normal skin color. Normal skin turgor. No rashes. Extremities: No lower extremity edema. No joint swelling. Mild hand tremor bilat erally. Neuro/psych: Oriented X 3. No motor deficit. No sensory deficit. CN II-XII intact. Normal speech and cognition. Course Reevaluation(s) Reevaluation #1: CIWA 5. tongue fasiculations present along with some disorientation to date. 2mg IV ativan ordered for further seizure prevention Time: 09:54 Reevaluation #2: lactic acid 4.9. not due to sepsis or infection - this is due to seizure activity, expect rapid clearance with IVF patient to be admitted to the hospital for further management. hospitalist has been tigertexted Time: 12:04 Medications Administered Generic Name Dose Route Start Last Admin Trade Name Freq PRN Reason Stop Dose Admin Magnesium Sulfate 2 gm in 50 mls @ 25 mls/hr 08/22/22 10:44 08/22/22 11:22 Magnesium Sulfate/H2o IV 08/22/22 12:43 25 mls/hr ONCE ONE Administration Discontinued Medications Generic Name Dose Route Start Last Admin Trade Name Katie PRN Reason Stop Dose Admin Sodium Chloride 1,000 mls @ 999 mls/hr 08/22/22 09:30 08/22/22 10:24 Ns IVCONT 08/22/22 10:30 Infused .Q1H1M LUÍS Infusion Sodium Chloride 1,000 mls @ 999 mls/hr 08/22/22 11:00 08/22/22 11:22 Ns IVCONT 08/22/22 12:00 999 mls/hr .Q1H1M LUÍS Administration Lorazepam 2 mg 08/22/22 09:32 08/22/22 09:54 Lorazepam 2 Mg/Ml Vial IVPUSH 08/22/22 09:33 2 mg ONCE ONE Administration Phenobarbital Sodium 335 mg 08/22/22 11:30 08/22/22 11:51 Phenobarbital Sodium 130 Mg/Ml Im Once IM 08/22/22 11:31 335 mg ONCE ONE Administration Medical Decision Making Medical Decision Making MDM Narrative: 56 yo male with history of ETOH abuse/dependence, history of ETOH withdrawal seizures in the past who presents to the ER from home via EMS for evaluation of witnessed seizure, fall off the toilet with headstrike, after last drink of alcohol 17 hours ago. +postictal state at home, AAO x3 on arrival to the ER. CIWA 5. ETOH level 29. Concern for clinical decline and further seizure activity so 2mg IV ativan given. Labs significant for hypomagnesemia, bicarb 13 with anion gap 25. likely metabolic acidosis from seizure induced lactic acidosis. IVF infusing. lactic acid elevated 4.9 with normal pH. no evidence of sepsis or infection at this time. initial tachycardia due to hyperadrenergic state. phenobarbital protocol ordered. patient to be admitted for further management. Differential Diagnosis Differential Diagnoses: The differential diagnosis associated with the presentation includes alcohol withdrawal seizure, epileptic seizure, hyponatremia closed head injury, concussion, ICH/SAH, cervical spinal injury anion gap metabolic acidosis likely due to elevated lactic acid in the setting of seizures Admission/Observation Consideration of admission/observation: Escalation of care including admission/observation considered etoh withdrawal seizure Consult Healthcare Provider Management of the patient was discussed with: Hospitalist dr. khan TT for admit Lab Data [facility] Lab Attestation statement: I reviewed the patient's lab results. pancytopenia c/w bone marrow suppression from chronic etoh abuse hypomagnesemia anion gap metabolic acidosis mild transaminitis, likely mild alcoholic hepatitis 08/22/22 10:19 08/22/22 10:19 Labs: Lab Results 08/22/22 08/22/22 08/22/22 Range/Units 10:19 10:19 10:19 WBC 4.6 L (4.8-10.8) X10*3/uL RBC 4.13 L D (4.60-5.80) X10*6/uL Hgb 13.6 L D (14.0-18.0) g/dl Hct 39.9 L D (42.0-52.0) % MCV 96.6 (80.0-98.0) fL MCH 32.9 (27.0-33.0) pg MCHC 34.1 (31.0-36.0) g/dl RDW 13.4 (11.0-16.0) % Plt Count 90 L D (160-400) X10*3/uL MPV 9.7 (9.4-12.4) fL Immature Gran % (Auto) 0.2 (0.0-0.4) % Neut % (Auto) 78.7 H (45-73) % Lymph % (Auto) 9.9 L (20-40) % [place] % (Auto) 9.9 (2-11) % Eos % (Auto) 0.4 (0-4) % Baso % (Auto) 0.9 (0-2) % Lymph # (Auto) 0.5 L (1.2-4.9) X10*3/uL [place] # (Auto) 0.5 (0.1-1.2) X10*3/uL Eos # (Auto) 0.0 (0.0-0.4) X10*3/uL Baso # (Auto) 0.0 (0.0-0.2) X10*3/uL Abs Immat Gran (auto) 0.01 (0.00-0.03) X10*3/uL Absolute Neuts (auto) 3.6 (2.0-8.3) x10*3/uL Absolute Nucleated RBC 0.000 (0.0-0.012) X10*3/uL Nucleated RBC % (auto) 0.0 (0.0-0.2) /100WBC PT (10.0-13.1) SEC INR (0.9-1.1) APTT (26.0-36.4) SEC VBG pH (7.32-7.43) VBG pCO2 mmHg VBG pO2 mmHg VBG HCO3 (22-26) mmol/L VBG O2 Saturation % VBG Base Excess mmol/L Sodium 142 (135-145) mmol/L Potassium 3.5 (3.3-5.1) mmol/L Chloride 108 (96-108) mmol/L Carbon Dioxide 13 L (22-29) mmol/L Anion Gap 25 H (12-20) BUN 4 L (9-16) mg/dL Creatinine 0.88 (0.5-1.4) mg/dL Estim Creat Clear Calc 91.5 Estimated GFR > 60 Random Glucose 88 (60-115) mg/dL Lactic Acid (0.5-2.0) mmol/L Calcium 9.1 D (8.4-10.2) mg/dL Magnesium 1.4 L* (1.6-2.6) mg/dL Total Bilirubin 1.4 H (0.0-1.0) mg/dL Direct Bilirubin 0.5 (0.0-0.5) mg/dL AST 197 H (5-37) U/L ALT 66 H (0-40) U/L Alkaline Phosphatase 95 (39-117) U/L Total Creatine Kinase 346 H (38-174) U/L Total Protein 7.5 (6.5-8.0) g/dL Albumin 4.1 (3.5-5.0) g/dL Ethyl Alcohol 29 mg/dL 08/22/22 08/22/22 08/22/22 Range/Units 11:38 11:38 11:43 WBC (4.8-10.8) X10*3/uL RBC (4.60-5.80) X10*6/uL Hgb (14.0-18.0) g/dl Hct (42.0-52.0) % MCV (80.0-98.0) fL MCH (27.0-33.0) pg MCHC (31.0-36.0) g/dl RDW (11.0-16.0) % Plt Count (160-400) X10*3/uL MPV (9.4-12.4) fL Immature Gran % (Auto) (0.0-0.4) % Neut % (Auto) (45-73) % Lymph % (Auto) (20-40) % [place] % (Auto) (2-11) % Eos % (Auto) (0-4) % Baso % (Auto) (0-2) % Lymph # (Auto) (1.2-4.9) X10*3/uL [place] # (Auto) (0.1-1.2) X10*3/uL Eos # (Auto) (0.0-0.4) X10*3/uL Baso # (Auto) (0.0-0.2) X10*3/uL Abs Immat Gran (auto) (0.00-0.03) X10*3/uL Absolute Neuts (auto) (2.0-8.3) x10*3/uL Absolute Nucleated RBC (0.0-0.012) X10*3/uL Nucleated RBC % (auto) (0.0-0.2) /100WBC PT 10.7 (10.0-13.1) SEC INR 0.9 (0.9-1.1) APTT 28.1 (26.0-36.4) SEC VBG pH 7.40 (7.32-7.43) VBG pCO2 31 mmHg VBG pO2 53 mmHg VBG HCO3 19 L (22-26) mmol/L VBG O2 Saturation 79.0 % VBG Base Excess -3.8 mmol/L Sodium (135-145) mmol/L Potassium (3.3-5.1) mmol/L Chloride (96-108) mmol/L Carbon Dioxide (22-29) mmol/L Anion Gap (12-20) BUN (9-16) mg/dL Creatinine (0.5-1.4) mg/dL Estim Creat Clear Calc Estimated GFR Random Glucose (60-115) mg/dL Lactic Acid 4.9 H* (0.5-2.0) mmol/L Calcium (8.4-10.2) mg/dL Magnesium (1.6-2.6) mg/dL Total Bilirubin (0.0-1.0) mg/dL Direct Bilirubin (0.0-0.5) mg/dL AST (5-37) U/L ALT (0-40) U/L Alkaline Phosphatase (39-117) U/L Total Creatine Kinase (38-174) U/L Total Protein (6.5-8.0) g/dL Albumin (3.5-5.0) g/dL Ethyl Alcohol mg/dL ABG Data Attestation ABG: I personally reviewed and interpreted this ABG as follows: Interpretation: normal pH, well compensated Independent Interpretation I performed an independent interpretation of an: EKG and CT Scan Interpretation: ekg w/ normal sinus rhythm, hr 86 bpm, normal qtc, normal pr interval ct head reviewed - no appreciated bleed or edema Radiology Impression Discussion of test interpretation with radiology: I have reviewed the radiologist's reading. Radiologist Impression: ?CT/CT head/brain wo IV con IMPRESSION: 1.? No acute intracranial process seen. 2.? There is no acute fracture, dislocation or subluxation in cervical spine. There is grade 1 anterolisthesis C4 over C5 and grade 1 retrolisthesis C6 over C7. Independent Historian Clinical information obtained from an independent historian. History obtained from or confirmed by: Spouse and EMS External Record Review External record reviewed: Inpatient record, Outpatient record, Prior outpatient labs and Prior outpatient radiology Prescription Management I considered prescription management with: Other (benzodiazapines) Chronic Conditions Patient?s care impacted by: Other (chronic alcoholism) Social Determinants Patient?s care significantly limited by Social Determinants of Health including: Alcoholism and drug addiction in family Critical Care Time Critical Care Time Critical Care Time: Yes Total Critical Care Time: 39 Attestation: I have personally provided critical care time exclusive of time spent on separately billable procedures. Time includes review of lab data, radiology results, frequent bedside reassessments, and monitoring for potential decompensation. Intervention performed as documented. Discharge Plan Discharge Clinical Impression: Alcohol withdrawal seizure, Increased anion gap metabolic acidosis, Pancytopenia, Hypomagnesemia Patient Disposition: Admitted As Inpatient
--- NOTE | 2022-08-22 09:25 | PC.NURSE ---
Addendum entered by Theresa Macedo RN 08/22/22 09:55: seizure precautions placed, fall precautions intact. Original Note: patient a&ox2, pt admits to drinking 2 days ago, girlfriend at bedside states he drank yesterday 2 beers and fireballs- girlfriend also states he fell off the toilet and hit his head, gambling monitor applied pt sinus tach on monitor, vss, ivf hung per order, call murdock within reach, will continue to monitor
[2022-08-22] MEDS: LORazepam 2 MG/ML VIAL IVPUSH (09:54)
--- NOTE | 2022-08-22 09:55 | PC.NURSE ---
provider notified ciwa 5, pt medicated with ativan per order.
[2022-08-22 10:25] LABS: MANUAL DIFF FLAG NO
[2022-08-22 10:27] LABS: Basophils Percent Auto 0.9 % (0-2); Eosinophils Percent Auto 0.4 % (0-4); Hematocrit 39.9 % (42.0-52.0); Hemoglobin 13.6 g/dl (14.0-18.0); Imm Gran Abs Auto 0.01 X10*3/uL (0.00-0.03); Imm Gran Pct Auto 0.2 % (0.0-0.4); Lymphocytes Absolute Auto 0.5 X10*3/uL (1.2-4.9); Lymphocytes Percent Auto 9.9 % (20-40); Mean Corpuscular HGB Conc 34.1 g/dl (31.0-36.0); Mean Corpuscular Hemoglobin 32.9 pg (27.0-33.0); Mean Corpuscular Volume 96.6 fL (80.0-98.0); Mean Platelet Volume 9.7 fL (9.4-12.4); Monocytes Absolute Auto 0.5 X10*3/uL (0.1-1.2); Monocytes Percent Auto 9.9 % (2-11); Neutrophils Absolute Auto 3.6 x10*3/uL (2.0-8.3); Neutrophils Percent Auto 78.7 % (45-73); Red Blood Count 4.13 X10*6/uL (4.60-5.80); Red Cell Distribution Width 13.4 % (11.0-16.0); White Blood Count 4.6 X10*3/uL (4.8-10.8)
[2022-08-22 10:28] LABS: Platelet Count 90 X10*3/uL (160-400)
[2022-08-22 10:37] LABS: Ethanol 29 mg/dL
[2022-08-22 10:45] LABS: Alanine Aminotransferase 66 U/L (0-40); Albumin Level 4.1 g/dL (3.5-5.0); Alkaline Phosphatase 95 U/L (39-117); Anion Gap 25 (12-20); Aspartate Amino Transferase 197 U/L (5-37); Bilirubin Direct 0.5 mg/dL (0.0-0.5); Bilirubin Total 1.4 mg/dL (0.0-1.0); Blood Urea Nitrogen 4 mg/dL (9-16); Calcium 9.1 mg/dL (8.4-10.2); Carbon Dioxide 13 mmol/L (22-29); Chloride 108 mmol/L (96-108); Creatinine Clr Calc Pharmacy 91.5; Estimated Glomerular Filt Rate > 60; Glucose Random 88 mg/dL (60-115); Magnesium 1.4 mg/dL (1.6-2.6); Potassium 3.5 mmol/L (3.3-5.1); Sodium 142 mmol/L (135-145); Total Protein 7.5 g/dL (6.5-8.0)
[2022-08-22 11:16] VITALS: BP 137/96; PULSE 94; RESP 18; O2SAT 96
--- NOTE | 2022-08-22 11:16 | ECG_ITS ---
Test Reason : SEIZURE Blood Pressure : / mmHG Vent. Rate : 086 BPM Atrial Rate : 086 BPM P-R Int : 148 ms QRS Dur : 090 ms QT Int : 372 ms P-R-T Axes : 074 035 044 degrees QTc Int : 445 ms Normal sinus rhythm Normal ECG When compared with ECG of 20-APR-2022 05:50, No significant change was found Referred By: Chen Vyas Electronically Signed By:JESENIA NAVARRO MD
[2022-08-22] MEDS: Magnesium Sulfate/H2O 2 GM/50 ML PIGGYBACK IV (11:22)
--- NOTE | 2022-08-22 11:25 | PC.NURSE ---
ivf started per order, mag given per order, patient monitor continues to be nsr 80s, ekg and labs to be performed by tech, will continue to monitor.
--- NOTE | 2022-08-22 11:30 | HE.PHANOTE ---
Consult Rx EtOH Phenob IM/PO : PATIENT IBW is 82 KG . Patient actual body weight is 69.9 kg . For phenobarbital calculations we used actual body weight since its < than IBW
[2022-08-22 11:50] LABS: VBG Base Excess -3.8 mmol/L; VBG HCO3 19 mmol/L (22-26); VBG pCO2 31 mmHg; VBG pO2 53 mmHg
[2022-08-22 11:50] LABS: Venous Blood Gas Refer to POC result
[2022-08-22 11:51] LABS: INTERNATIONAL NORM RATIO 0.9 (0.9-1.1); Prothrombin Time 10.7 SEC (10.0-13.1)
[2022-08-22] MEDS: PHENobarbitaL sodium 130 MG/ML IM ONCE 335 MG IM (11:51)
[2022-08-22 11:54] LABS: Partial Thromboplastin Time 28.1 SEC (26.0-36.4)
--- NOTE | 2022-08-22 11:56 | PC.NURSE ---
pt rouseable to name, a&ox4, vss, phenobarb protocol started per MAY. pt pending admission.
[2022-08-22 12:02] LABS: Lactic Acid 4.9 mmol/L (0.5-2.0)
--- NOTE | 2022-08-22 12:08 | PHA.MEDREC ---
Pharmacy Consult ? Medication Reconciliation Pharmacy has completed the medication reconciliation. Spoke to patient with SO at bedside to confirm meds. Patient's SO states that the patient should be taking all confirmed meds, but is not compliant with his medications.
--- NOTE | 2022-08-22 12:44 | PM.IMHP ---
History of Present Illness Date of Service: 08/22/22 Attending physician on admission: Stephen Khan Chief Complaint: seizure this is a 56-year-old male who presents to the emergency department after he was found to be seizing. Patient has a history of alcohol dependence and history of alcohol withdrawal seizures. He drinks multiple tall boys daily as well as fireball, unable to quantify but states that he drinks a lot he ran out of money to buy more alcohol and his last drink was approximately 16:00 the day prior to admission. Around 08:00 o'clock this morning his nephew heard a crash and found him seizing in the bathroom. The ambulance was called and he was brought to the emergency department for evaluation. In the emergency department lab work was significant for elevated lactic acid at 4.9, anion gap 25, bicarb 13, magnesium 1.4. He received IV fluid, IV Ativan IV magnesium and was started on phenobarbital protocol. he states that he is not interested in sobriety at this time, he is aware of the resources available. he denies any injuries, denies any chest pain, palpitations. Review of Systems Review of Systems: Yes all other systems are reviewed and are negative Constitutional: Constitutional: Denies chills and Denies fever(s) ENT: Denies dizziness Cardiovascular: Cardiovascular: Denies chest pain and Denies palpitations Respiratory: Respiratory: Denies cough Gastrointestinal: Gastrointestinal: Denies abdominal pain, Denies nausea and Denies vomiting Neurologic: Denies dizziness Endocrine: Endocrine: Denies palpitations [facility] Medical History Alcohol dependence Alcohol withdrawal seizure Social History Household Members: Significant Other Housing: Apartment Do you presently have visiting nurse or other home services: No Alcohol intake: current Alcohol intake frequency: 3 or more drinks per day Alcohol type: beer and hard liquor Patient Tobacco Use Status: Current someday Tobacco user Tobacco use type: Cigarette Smoked in Last 30 Days: No e-Cigarette/Vaping Use: Never Used Second Hand Smoke Exposure: No Use of substances other than those prescribed or required for medical reasons: No Substance Use Type: Marijuana Advance Directives: Yes Advance Directives on File: Yes Advance Directives Date on File: 02/17/22 service: No Meds Allergies Allergy/AdvReac Type Severity Reaction Status Date / Time Iodinated Contrast Media Allergy Cough Verified 08/22/22 09:16 [IV Contrast Dye] Active Medications: Current Medications Acetaminophen (Acetaminophen 325 Mg Tablet) 650 mg PO Q6H PRN PRN Reason: Pain, Mild (Pain Scale 1-3) Allopurinol (Allopurinol 100 Mg Tablet) 100 mg PO DAILY [facility] Docusate Sodium (Docusate Sodium 100 Mg Capsule) 100 mg PO DAILY PRN PRN Reason: Constipation Enoxaparin Sodium (Enoxaparin Sodium 40 Mg/0.4 Ml Syringe) 40 mg SUBCUT Q24H [facility] Folic Acid (Folic Acid 1 Mg Tablet) 1 mg PO DAILY [facility] Thiamine HCl 200 mg/ Sodium (Chloride) 102 mls @ 204 mls/hr IV Q24H [facility] Multivitamins/Vitamin C (Multivitamin Tablet) 1 tab PO DAILY [facility] Pharmacy Consult (Consult Rx Etoh Phenob Im/Po) 1 each MISCELLANE ONCE PRN; Protocol PRN Reason: Consult order Pharmacy Consult (Consult Rx Perform Med Rec) 1 each MISCELLANE ONCE PRN PRN Reason: Consult order Phenobarbital (Phenobarbital 15 Mg Tablet) 45 mg PO BID [facility] Stop: 08/24/22 21:01 Phenobarbital (Phenobarbital 30 Mg Tablet) 30 mg PO BID [facility] Stop: 08/26/22 21:01 Phenobarbital (Phenobarbital 30 Mg Tablet) 30 mg PO DAILY [facility] Stop: 08/28/22 09:01 Phenobarbital Sodium (Phenobarbital Sodium 130 Mg/Ml Vial Im Q3hx2) 252 mg IM Q3H [facility] Stop: 08/22/22 18:01 Sodium Chloride (0.9 % Sodium Chloride Flush 3 Ml Syringe) 3 ml IVFLUSH QSHIFT [facility] Home Medications Medication Instructions Recorded Confirmed Last Taken Type allopurinol 100 mg tablet 100 mg PO DAILY 08/22/22 08/22/22 4 Days Ago History ~08/18/22 folic acid 1 mg tablet 1 mg PO DAILY 08/22/22 08/22/22 4 Days Ago History ~08/18/22 meloxicam 15 mg tablet 15 mg PO DAILY 08/22/22 08/22/22 4 Days Ago History ~08/18/22 vitamin B complex (B 1 tab PO DAILY 08/22/22 08/22/22 4 Days Ago History Complex-Vitamin B12 tablet) ~08/18/22 Physical Exam Vital Signs and Narrative: Vital Signs: Last Vital Signs Temp 97.8 F 08/22/22 09:16 Pulse 94 08/22/22 11:16 Resp 18 08/22/22 11:16 BP 137/96 H 08/22/22 11:16 Pulse Ox 96 08/22/22 11:16 O2 Del Method Room Air 08/22/22 11:16 BMI result Body Mass Index 19.8 Const: General: comfortable, no acute distress, alert and awake Nutritional Appearance: thin Orientation/consciousness: patient oriented x3 Eyes: Pupils: Equal, round and reactive pupils present Resp: Effort & Inspection: normal respiratory effort, able to speak in complete sentences, no respiratory distress and no use of accessory muscles Auscultation: clear to auscultation bilaterally Cardio: Rate: regular rate Heart sounds: S1 normal heart sound present and S2 normal heart sound present GI: Inspection: No distended Palpation (GI): Soft to palpation and nontender Neuro: General: patient oriented x3, moves all extremities and CN's II-XI intact bilaterally Cranial nerves: Yes Equal, round and reactive pupils present Extrem: General: Yes no pedal edema Results Labs 08/22/22 10:19 08/22/22 10:19 Labs: Laboratory Results - last 24 hr 08/22/22 08/22/22 08/22/22 10:19 10:19 10:19 MCV 96.6 MCH 32.9 MCHC 34.1 RDW 13.4 Plt Count 90 L D MPV 9.7 Immature Gran % (Auto) 0.2 Neut % (Auto) 78.7 H Lymph % (Auto) 9.9 L [place] % (Auto) 9.9 Eos % (Auto) 0.4 Baso % (Auto) 0.9 Lymph # (Auto) 0.5 L [place] # (Auto) 0.5 Eos # (Auto) 0.0 Baso # (Auto) 0.0 Abs Immat Gran (auto) 0.01 Absolute Neuts (auto) 3.6 Absolute Nucleated RBC 0.000 Nucleated RBC % (auto) 0.0 PT INR APTT VBG pH VBG pCO2 VBG pO2 VBG HCO3 VBG O2 Saturation VBG Base Excess Anion Gap 25 H Estim Creat Clear Calc 91.5 Estimated GFR > 60 Random Glucose 88 Lactic Acid Calcium 9.1 D Magnesium 1.4 L* Total Bilirubin 1.4 H Direct Bilirubin 0.5 AST 197 H ALT 66 H Alkaline Phosphatase 95 Total Creatine Kinase 346 H Total Protein 7.5 Albumin 4.1 Ethyl Alcohol 29 08/22/22 08/22/22 08/22/22 11:38 11:38 11:43 MCV MCH MCHC RDW Plt Count MPV Immature Gran % (Auto) Neut % (Auto) Lymph % (Auto) [place] % (Auto) Eos % (Auto) Baso % (Auto) Lymph # (Auto) [place] # (Auto) Eos # (Auto) Baso # (Auto) Abs Immat Gran (auto) Absolute Neuts (auto) Absolute Nucleated RBC Nucleated RBC % (auto) PT 10.7 INR 0.9 APTT 28.1 VBG pH 7.40 VBG pCO2 31 VBG pO2 53 VBG HCO3 19 L VBG O2 Saturation 79.0 VBG Base Excess -3.8 Anion Gap Estim Creat Clear Calc Estimated GFR Random Glucose Lactic Acid 4.9 H* Calcium Magnesium Total Bilirubin Direct Bilirubin AST ALT Alkaline Phosphatase Total Creatine Kinase Total Protein Albumin Ethyl Alcohol Imaging Radiologist's Impressions: Impressions Cervical Spine CT 08/22/22 11:13 IMPRESSION: 1. No acute intracranial process seen. 2. There is no acute fracture, dislocation or subluxation in cervical spine. There is grade 1 anterolisthesis C4 over C5 and grade 1 retrolisthesis C6 over C7. Head CT 08/22/22 11:13 IMPRESSION: 1. No acute intracranial process seen. 2. There is no acute fracture, dislocation or subluxation in cervical spine. There is grade 1 anterolisthesis C4 over C5 and grade 1 retrolisthesis C6 over C7. Assessment and Plan (1) Increased anion gap metabolic acidosis: Status: Acute (2) Hypomagnesemia: Status: Acute (3) Alcohol withdrawal seizure: Status: Acute (4) Pancytopenia: Status: Acute Plan This is a 56-year-old male with history of alcohol dependence, history of alcohol withdrawal seizure who presents to the emergency department after witness seizure. Alcohol withdrawal seizure /alcohol withdrawal secondary to alcohol dependence continue phenobarb protocol IV thiamine continue folic acid, multivitamin seizure precautions not interested in sobriety at this time hypomagnesemia Secondary to alcohol dependence Replace and follow Anion gap metabolic acidosis Secondary to lactic acidosis in the setting of seizure Continue IV fluid Follow BMP acute lactic acidosis secondary to seizure not infection continue IVF pancytopenia Secondary to bone marrow suppression related to alcohol use follow CBC transaminitis Likely related to alcohol abuse trend LFTs dvt ppx - lovenox code status - full code attending - dr. khan patient will likely require 2 midnight stay in the hospital for management of alcohol withdrawal, close monitoring Time Spent With Patient Time: Total time managing care of this patient today ____ minutes. Quality Stroke Does the patient have a stroke diagnosis?: No VTE Prior VTE?: No VTE Risk Level:: Medical - moderate - high VTE Device Contraindication: N/A - Device Ordered VTE Drug Contraindication: N/A - Med Ordered
[2022-08-22 13:42] LABS: Reflex Lactate? Lactic Acid Added
[2022-08-22 13:45] VITALS: BP 158/103; PULSE 93; RESP 16; TEMP 36.8; O2SAT 95
[2022-08-22] MEDS: Thiamine HCL 200 MG in 0.9 % Sodium Chloride 100 ML 204 MG IV (13:54)
[2022-08-22] MEDS: Enoxaparin Sodium 40 MG/0.4 ML SYRINGE SUBCUT (13:54)
[2022-08-22 13:57] LABS: Appearance Urine Clear; Color Urine Yellow; Glucose Urine UA Negative (Negative); Leukocyte Esterase Urine Trace (Negative); Nitrite Urine Negative (Negative); Specific Gravity - Urine 1.015 (1.005-1.025); UMIC TRIGGER UACC YES; Urine Blood Small (1+) (Negative); Urine Ketones Trace mg/dL (Negative); Urine Protein 100 (2+) mg/dL (Neg-Trace)
[2022-08-22 14:09] LABS: Bacteria Urine None Seen (None Seen); Hyaline Casts Urine 0-2 /LPF (0-2); RBC Urine 0-2 /HPF (0-2); Squamous Epithelial Cell Urine 0-2 /HPF (0-2); WBC Urine 0-5 /HPF (0-5)
[2022-08-22 14:18] LABS: Amphetamine Screen Urine Not Detected (Not Detect); Barbiturates, Urine POSITIVE (Not Detect); Benzodiazepines Screen Urine Not Detected (Not Detect); Cannabinoid Screen Urine POSITIVE (Not Detect); Cocaine Screen Urine Not Detected (Not Detect); Fentanyl, urine Not Detected (Not Detect); Opiate Screen Urine Not Detected (Not Detect); Phencyclidine Screen Urine Not Detected (Not Detect)
--- NOTE | 2022-08-22 14:54 | PC.NURSE ---
pt reeducated on importance of keeping arm straight.
[2022-08-22] MEDS: Lactated Ringers 1,000 ML 100 ML IVCONT ×2 (15:07→21:28)
[2022-08-22 15:15] LABS: ~Lactic Acid-LAB USE ONLY 1.7 mmol/L (0.5-2.0)
[2022-08-22] MEDS: PHENobarbitaL sodium 130 MG/ML VIAL IM Q3Hx2 252 MG IM ×2 (15:20→19:33)
[2022-08-22 15:24] LABS: Anion Gap 17 (12-20); Blood Urea Nitrogen 3 mg/dL (9-16); Calcium 8.8 mg/dL (8.4-10.2); Carbon Dioxide 20 mmol/L (22-29); Chloride 107 mmol/L (96-108); Estimated Glomerular Filt Rate > 60; Glucose Random 133 mg/dL (60-115); Potassium 3.5 mmol/L (3.3-5.1); Sodium 140 mmol/L (135-145)
--- NOTE | 2022-08-22 19:33 | PC.NURSE ---
patient was administered the medication by IM patient vitals are elevated will be reassesed after 30 min patient in the process of being transferred to the admitted bed assigned patient report will be given to the receiving nurse patient was administered a new saline lock in the right fore arm a 20g patient was folding the arm cutting off the IV fluids that was ordered patient was educated about the importance of needing the medication patient will continue to be monitored for safety
--- NOTE | 2022-08-22 19:52 | PC.NURSE ---
patient report was given to nurse Colón patient vitals are elevated and nurse is aware patient was notified of the admitting process at the bedside patient will be transported safety will be maintained
[2022-08-22 19:56] VITALS: BP 162/105; PULSE 92; RESP 14; TEMP 37.1; O2SAT 93
[2022-08-22 20:00] VITALS: BP 143/100; PULSE 84; RESP 20; TEMP 36.8; O2SAT 97
[2022-08-22] MEDS: 0.9 % Sodium Chloride Flush 3 ML SYRINGE IVFLUSH (21:29)
[2022-08-22 23:10] VITALS: BMI 19.7
[2022-08-23] VITALS: BP 176/97; PULSE 82; RESP 20; TEMP 37.2; O2SAT 100
[2022-08-23 03:48] VITALS: BP 150/99; PULSE 80; RESP 20; TEMP 36.7; O2SAT 97
[2022-08-23] MEDS: Lactated Ringers 1,000 ML 100 ML IVCONT (06:26)
[2022-08-23 06:41] LABS: MANUAL DIFF FLAG NO
[2022-08-23 06:55] LABS: Basophils Absolute Auto 0.1 X10*3/uL (0.0-0.2); Basophils Percent Auto 0.8 % (0-2); Eosinophils Absolute Auto 0.2 X10*3/uL (0.0-0.4); Eosinophils Percent Auto 2.9 % (0-4); Hematocrit 35.6 % (42.0-52.0); Hemoglobin 12.6 g/dl (14.0-18.0); Imm Gran Abs Auto 0.02 X10*3/uL (0.00-0.03); Imm Gran Pct Auto 0.3 % (0.0-0.4); Lymphocytes Absolute Auto 1.6 X10*3/uL (1.2-4.9); Lymphocytes Percent Auto 24.3 % (20-40); Mean Corpuscular HGB Conc 35.4 g/dl (31.0-36.0); Mean Corpuscular Hemoglobin 33.2 pg (27.0-33.0); Mean Corpuscular Volume 93.7 fL (80.0-98.0); Mean Platelet Volume 10.4 fL (9.4-12.4); Monocytes Absolute Auto 0.7 X10*3/uL (0.1-1.2); Monocytes Percent Auto 10.4 % (2-11); Neutrophils Absolute Auto 4.1 x10*3/uL (2.0-8.3); Neutrophils Percent Auto 61.3 % (45-73); Red Cell Distribution Width 12.7 % (11.0-16.0); White Blood Count 6.6 X10*3/uL (4.8-10.8)
[2022-08-23 06:56] LABS: Platelet Count 99 X10*3/uL (160-400)
[2022-08-23 07:17] LABS: Alanine Aminotransferase 46 U/L (0-40); Albumin Level 3.5 g/dL (3.5-5.0); Alkaline Phosphatase 77 U/L (39-117); Aspartate Amino Transferase 109 U/L (5-37); Bilirubin Direct 0.8 mg/dL (0.0-0.5); Bilirubin Total 2.6 mg/dL (0.0-1.0); Blood Urea Nitrogen 3 mg/dL (9-16); Calcium 8.7 mg/dL (8.4-10.2); Creatinine Clr Calc Pharmacy 109.7; Estimated Glomerular Filt Rate > 60; Glucose Random 90 mg/dL (60-115); Total Protein 6.5 g/dL (6.5-8.0)
[2022-08-23 07:51] LABS: Anion Gap 16 (12-20); Carbon Dioxide 22 mmol/L (22-29); Chloride 102 mmol/L (96-108); Magnesium 1.3 mg/dL (1.6-2.6); Potassium 2.9 mmol/L (3.3-5.1); Sodium 137 mmol/L (135-145)
[2022-08-23 08:00] VITALS: BP 123/82; PULSE 84; RESP 20; TEMP 36.5; O2SAT 96
[2022-08-23] MEDS: allopurinoL 100 MG TABLET PO (08:52)
[2022-08-23] MEDS: Folic Acid 1 MG TABLET PO (08:52)
[2022-08-23] MEDS: Multivitamin TABLET 1 TAB PO (08:52)
[2022-08-23] MEDS: PHENobarbitaL 15 MG TABLET 45 MG PO (08:53)
[2022-08-23] MEDS: Potassium Chloride ER 20 MEQ TAB.ER.PRT 40 MEQ PO (08:53)
[2022-08-23] MEDS: Magnesium Sulfate/H2O 2 GM/50 ML PIGGYBACK IV (08:54)
--- NOTE | 2022-08-23 09:28 | HO.PM.IMPN ---
Subjective Subjective Date of Service: 08/23/22 Interval History: seen and examined this morning follow up for etoh withdrawal seizure no overnight events denies feeling shaky or anxious Review of Systems Review of Systems: Yes all other systems are reviewed and are negative Constitutional Constitutional: Denies chills and Denies fever(s) ENT Ears, Nose, Mouth, and Throat: Denies dizziness Cardiovascular Cardiovascular: Denies chest pain, Denies palpitations and Denies dyspnea Respiratory Respiratory: Denies cough and Denies dyspnea Gastrointestinal Gastrointestinal: Denies abdominal pain, Denies nausea and Denies vomiting Neurologic Neurologic: Denies dizziness Endocrine Endocrine: Denies palpitations Physical Exam Vital Signs: Vital Signs: Last Vital Signs Temp 97.7 F 08/23/22 08:00 Pulse 84 08/23/22 08:00 Resp 20 08/23/22 08:00 BP 123/82 08/23/22 08:00 Pulse Ox 96 08/23/22 08:00 O2 Del Method Room Air 08/23/22 08:00 BMI result Body Mass Index 19.7 Const: General: cooperative, comfortable, no acute distress, alert and awake Nutritional Appearance: thin Orientation/consciousness: patient oriented x3 Eyes: Pupils: Equal, round and reactive pupils present Resp: Effort & Inspection: normal respiratory effort, able to speak in complete sentences, no respiratory distress and no use of accessory muscles Auscultation: clear to auscultation bilaterally Cardio: Rate: regular rate Heart sounds: S1 normal heart sound present and S2 normal heart sound present GI: Inspection: No distended Palpation (GI): Soft to palpation and nontender Neuro: General: patient oriented x3, moves all extremities and CN's II-XI intact bilaterally Cranial nerves: Yes Equal, round and reactive pupils present Extrem: General: Yes no pedal edema Objective Data Active Medications Acetaminophen (Acetaminophen 325 Mg Tablet) 650 mg PO Q6H PRN PRN Reason: Pain, Mild (Pain Scale 1-3) Allopurinol (Allopurinol 100 Mg Tablet) 100 mg PO DAILY [facility] Last Admin: 08/23/22 08:52 Dose: 100 mg Documented By: DAWSON Docusate Sodium (Docusate Sodium 100 Mg Capsule) 100 mg PO DAILY PRN PRN Reason: Constipation Enoxaparin Sodium (Enoxaparin Sodium 40 Mg/0.4 Ml Syringe) 40 mg SUBCUT Q24H [facility] Last Admin: 08/22/22 13:54 Dose: 40 mg Documented By: VETO Folic Acid (Folic Acid 1 Mg Tablet) 1 mg PO DAILY [facility] Last Admin: 08/23/22 08:52 Dose: 1 mg Documented By: DAWSON Thiamine HCl 200 mg/ Sodium (Chloride) 102 mls @ 204 mls/hr IV Q24H [facility] Last Infusion: 08/22/22 15:09 Dose: 0 mls/hr Documented By: VETO Lactated Ringer's (Lr) 1,000 mls @ 100 mls/hr IVCONT .Q10H [facility] Last Admin: 08/23/22 06:26 Dose: 100 mls/hr Documented By: KARISSA Magnesium Sulfate (Magnesium Sulfate/H2o) 2 gm in 50 mls @ 25 mls/hr IV ONCE ONE Stop: 08/23/22 09:48 Last Admin: 08/23/22 08:54 Dose: 25 mls/hr Documented By: DAWSON Multivitamins/Vitamin C (Multivitamin Tablet) 1 tab PO DAILY [facility] Last Admin: 08/23/22 08:52 Dose: 1 tab Documented By: DAWSON Pharmacy Consult (Consult Rx Etoh Phenob Im/Po) 1 each MISCELLANE ONCE PRN; Protocol PRN Reason: Consult order Pharmacy Consult (Consult Rx Perform Med Rec) 1 each MISCELLANE ONCE PRN PRN Reason: Consult order Phenobarbital (Phenobarbital 15 Mg Tablet) 45 mg PO BID [facility] Stop: 08/24/22 21:01 Last Admin: 08/23/22 08:53 Dose: 45 mg Documented By: DAWSON Phenobarbital (Phenobarbital 30 Mg Tablet) 30 mg PO BID [facility] Stop: 08/26/22 21:01 Phenobarbital (Phenobarbital 30 Mg Tablet) 30 mg PO DAILY [facility] Stop: 08/28/22 09:01 Sodium Chloride (0.9 % Sodium Chloride Flush 3 Ml Syringe) 3 ml IVFLUSH QSHIFT [facility] Last Admin: 08/23/22 08:54 Dose: Not Given Documented By: DAWSON Non-Admin Reason: IV Running Labs 08/23/22 06:31 08/23/22 06:31 Labs: Laboratory Results - last 24 hr 08/22/22 08/22/22 08/22/22 10:19 10:19 10:19 MCV 96.6 MCH 32.9 MCHC 34.1 RDW 13.4 Plt Count 90 L D MPV 9.7 Immature Gran % (Auto) 0.2 Neut % (Auto) 78.7 H Lymph % (Auto) 9.9 L [place] % (Auto) 9.9 Eos % (Auto) 0.4 Baso % (Auto) 0.9 Lymph # (Auto) 0.5 L [place] # (Auto) 0.5 Eos # (Auto) 0.0 Baso # (Auto) 0.0 Abs Immat Gran (auto) 0.01 Absolute Neuts (auto) 3.6 Absolute Nucleated RBC 0.000 Nucleated RBC % (auto) 0.0 PT INR APTT VBG pH VBG pCO2 VBG pO2 VBG HCO3 VBG O2 Saturation VBG Base Excess Anion Gap 25 H Estim Creat Clear Calc 91.5 Estimated GFR > 60 Random Glucose 88 Lactic Acid Lactic Acid F/U @ 2Hr Calcium 9.1 D Magnesium 1.4 L* Total Bilirubin 1.4 H Direct Bilirubin 0.5 AST 197 H ALT 66 H Alkaline Phosphatase 95 Total Creatine Kinase 346 H Total Protein 7.5 Albumin 4.1 Urine Color Urine Appearance Urine pH Ur Specific [place] Urine Protein Urine Glucose (UA) Urine Ketones Urine Blood Urine Nitrite Ur Leukocyte Esterase Urine RBC Urine WBC Ur Squamous Epith Cells Urine Bacteria Hyaline Casts Urine Opiates Screen Urine Fentanyl Screen Ur Barbiturates Screen Ur Phencyclidine Scrn Ur Amphetamines Screen U Benzodiazepines Scrn Urine Cocaine Screen U Marijuana (THC) Screen Ethyl Alcohol 29 08/22/22 08/22/22 08/22/22 11:38 11:38 11:43 MCV MCH MCHC RDW Plt Count MPV Immature Gran % (Auto) Neut % (Auto) Lymph % (Auto) [place] % (Auto) Eos % (Auto) Baso % (Auto) Lymph # (Auto) [place] # (Auto) Eos # (Auto) Baso # (Auto) Abs Immat Gran (auto) Absolute Neuts (auto) Absolute Nucleated RBC Nucleated RBC % (auto) PT 10.7 INR 0.9 APTT 28.1 VBG pH 7.40 VBG pCO2 31 VBG pO2 53 VBG HCO3 19 L VBG O2 Saturation 79.0 VBG Base Excess -3.8 Anion Gap Estim Creat Clear Calc Estimated GFR Random Glucose Lactic Acid 4.9 H* Lactic Acid F/U @ 2Hr Calcium Magnesium Total Bilirubin Direct Bilirubin AST ALT Alkaline Phosphatase Total Creatine Kinase Total Protein Albumin Urine Color Urine Appearance Urine pH Ur Specific [place] Urine Protein Urine Glucose (UA) Urine Ketones Urine Blood Urine Nitrite Ur Leukocyte Esterase Urine RBC Urine WBC Ur Squamous Epith Cells Urine Bacteria Hyaline Casts Urine Opiates Screen Urine Fentanyl Screen Ur Barbiturates Screen Ur Phencyclidine Scrn Ur Amphetamines Screen U Benzodiazepines Scrn Urine Cocaine Screen U Marijuana (THC) Screen Ethyl Alcohol 08/22/22 08/22/22 08/22/22 13:49 13:49 14:48 MCV MCH MCHC RDW Plt Count MPV Immature Gran % (Auto) Neut % (Auto) Lymph % (Auto) [place] % (Auto) Eos % (Auto) Baso % (Auto) Lymph # (Auto) [place] # (Auto) Eos # (Auto) Baso # (Auto) Abs Immat Gran (auto) Absolute Neuts (auto) Absolute Nucleated RBC Nucleated RBC % (auto) PT INR APTT VBG pH VBG pCO2 VBG pO2 VBG HCO3 VBG O2 Saturation VBG Base Excess Anion Gap 17 Estim Creat Clear Calc 106.0 Estimated GFR > 60 Random Glucose 133 H Lactic Acid Lactic Acid F/U @ 2Hr Calcium 8.8 Magnesium Total Bilirubin Direct Bilirubin AST ALT Alkaline Phosphatase Total Creatine Kinase Total Protein Albumin Urine Color Yellow Urine Appearance Clear Urine pH 5.0 Ur Specific [place] 1.015 Urine Protein 100 (2+) H Urine Glucose (UA) Negative Urine Ketones Trace Urine Blood Small (1+) H Urine Nitrite Negative Ur Leukocyte Esterase Trace H Urine RBC 0-2 Urine WBC 0-5 Ur Squamous Epith Cells 0-2 Urine Bacteria None Seen Hyaline Casts 0-2 Urine Opiates Screen Not Detected Urine Fentanyl Screen Not Detected Ur Barbiturates Screen POSITIVE H Ur Phencyclidine Scrn Not Detected Ur Amphetamines Screen Not Detected U Benzodiazepines Scrn Not Detected Urine Cocaine Screen Not Detected U Marijuana (THC) Screen POSITIVE H Ethyl Alcohol 08/22/22 08/23/22 08/23/22 14:48 06:31 06:31 MCV 93.7 MCH 33.2 H MCHC 35.4 RDW 12.7 Plt Count 99 L MPV 10.4 Immature Gran % (Auto) 0.3 Neut % (Auto) 61.3 Lymph % (Auto) 24.3 [place] % (Auto) 10.4 Eos % (Auto) 2.9 Baso % (Auto) 0.8 Lymph # (Auto) 1.6 [place] # (Auto) 0.7 Eos # (Auto) 0.2 Baso # (Auto) 0.1 Abs Immat Gran (auto) 0.02 Absolute Neuts (auto) 4.1 Absolute Nucleated RBC 0.000 Nucleated RBC % (auto) 0.0 PT INR APTT VBG pH VBG pCO2 VBG pO2 VBG HCO3 VBG O2 Saturation VBG Base Excess Anion Gap 16 Estim Creat Clear Calc 109.7 Estimated GFR > 60 Random Glucose 90 Lactic Acid Lactic Acid F/U @ 2Hr 1.7 Calcium 8.7 Magnesium 1.3 L* Total Bilirubin 2.6 H Direct Bilirubin 0.8 H AST 109 H ALT 46 H Alkaline Phosphatase 77 Total Creatine Kinase 670 H Total Protein 6.5 Albumin 3.5 Urine Color Urine Appearance Urine pH Ur Specific [place] Urine Protein Urine Glucose (UA) Urine Ketones Urine Blood Urine Nitrite Ur Leukocyte Esterase Urine RBC Urine WBC Ur Squamous Epith Cells Urine Bacteria Hyaline Casts Urine Opiates Screen Urine Fentanyl Screen Ur Barbiturates Screen Ur Phencyclidine Scrn Ur Amphetamines Screen U Benzodiazepines Scrn Urine Cocaine Screen U Marijuana (THC) Screen Ethyl Alcohol Assessment and Plan (1) Alcohol withdrawal seizure: Status: Acute (2) Alcohol use disorder, severe, dependence: Status: Acute Plan This is a 56-year-old male with history of alcohol dependence, history of alcohol withdrawal seizure who presents to the emergency department after witnessed seizure. Alcohol withdrawal seizure /alcohol withdrawal secondary to alcohol dependence continue phenobarb protocol IV thiamine continue folic acid, multivitamin seizure precautions addiction medicine consulted hypomagnesemia Secondary to alcohol dependence Replace and follow hypokalemia replace and follow Anion gap metabolic acidosis Secondary to lactic acidosis in the setting of seizure resolved with IVF acute lactic acidosis secondary to seizure not infection resolved with IVF anemia, thrombocytopenia Secondary to bone marrow suppression related to alcohol use chronic, stable transaminitis Likely related to alcohol abuse trend LFTs elevated cpk, mild slightly increased today continue IVF follow CPK in am dvt ppx - lovenox code status - full code attending - dr. khan patient will likely require 2 midnight stay in the hospital for management of alcohol withdrawal, close monitoring Time Spent With Patient Time: Total time managing care of this patient today ____ minutes. Quality Stroke Does the patient have a stroke diagnosis?: No VTE Prior VTE?: No VTE Risk Level:: Medical - moderate - high VTE Device Contraindication: N/A - Device Ordered VTE Drug Contraindication: N/A - Med Ordered
[2022-08-23 11:12] VITALS: BP 111/78; PULSE 80; RESP 20; TEMP 36.5; O2SAT 97
--- NOTE | 2022-08-23 11:26 | MHC.CM.PN ---
CM met with Patient and his Fiance/HCP at bedside. Patient lives in a mobile home with his Fiance/HCP and his adult Nephew. Home self care vs Recovery Team intervention r/t ETOH is the tentative plan and CM has initiated and will follow for dc planning. Patient is jennifer do and his PCP is Dr. Prachi Nguyễn.
[2022-08-23] MEDS: Thiamine HCL 200 MG in 0.9 % Sodium Chloride 100 ML 204 MG IV (12:39)
[2022-08-23] MEDS: Enoxaparin Sodium 40 MG/0.4 ML SYRINGE SUBCUT (12:57)
--- NOTE | 2022-08-23 14:06 | PM.DS ---
DS: Providers Provider Date of Service: 08/23/22 Date of admission: 08/22/22 12:38 Date of discharge: 08/23/22 Primary care physician: Prachi Nguyễn NP Consults: 08/22/22 12:57 Addiction Medicine Routine Consulting Provider: Addiction Covering Reason for consultation: etoh withdrawal Has provider been notified: No Attending physician on discharge: Doug Segura Discharging clinician: Sri Reza DS: Diagnosis Discharge Diagnosis (1) Alcohol withdrawal seizure: Status: Acute (2) Alcohol use disorder, severe, dependence: Status: Acute DS: Summary Time Spent with Patient Time attestation: Total time managing care of this patient today ____ minutes. Discharge coordination time: Greater than 30 minutes Quality: Safe Use of Opioids Does Pt have an Active Cancer Diagnosis on the Problem List?: No Quality: Stroke Does the patient have a stroke diagnosis?: No Physical Exam Vital Signs: Vital Signs: Last Vital Signs Temp 97.7 F 08/23/22 11:12 Pulse 80 08/23/22 11:12 Resp 20 08/23/22 11:12 BP 111/78 08/23/22 11:12 Pulse Ox 97 08/23/22 11:12 O2 Del Method Room Air 08/23/22 11:12 BMI result Body Mass Index 19.7 Const: General: cooperative, comfortable, no acute distress, alert and awake Nutritional Appearance: thin Orientation/consciousness: patient oriented x3 Eyes: Pupils: Equal, round and reactive pupils present Resp: Effort & Inspection: normal respiratory effort, able to speak in complete sentences, no respiratory distress and no use of accessory muscles Auscultation: clear to auscultation bilaterally Cardio: Rate: regular rate Heart sounds: S1 normal heart sound present and S2 normal heart sound present GI: Inspection: No distended Palpation (GI): Soft to palpation and nontender Neuro: General: patient oriented x3, moves all extremities and CN's II-XI intact bilaterally Cranial nerves: Yes Equal, round and reactive pupils present Extrem: General: Yes no pedal edema DS: Data Data Completed and Pending Completed studies during hospitalization [Text1]: Procedures Detoxification Services for Substance Abuse Treatment (04/20/22) Labs on day of discharge: Laboratory Results - last 24 hr 08/22/22 08/22/22 08/22/22 13:49 13:49 14:48 WBC RBC Hgb Hct MCV MCH MCHC RDW Plt Count MPV Immature Gran % (Auto) Neut % (Auto) Lymph % (Auto) [place] % (Auto) Eos % (Auto) Baso % (Auto) Lymph # (Auto) [place] # (Auto) Eos # (Auto) Baso # (Auto) Abs Immat Gran (auto) Absolute Neuts (auto) Absolute Nucleated RBC Nucleated RBC % (auto) Sodium 140 Potassium 3.5 Chloride 107 Carbon Dioxide 20 L Anion Gap 17 BUN 3 L Creatinine 0.76 Estim Creat Clear Calc 106.0 Estimated GFR > 60 Random Glucose 133 H Lactic Acid F/U @ 2Hr Calcium 8.8 Magnesium Total Bilirubin Direct Bilirubin AST ALT Alkaline Phosphatase Total Creatine Kinase Total Protein Albumin Urine RBC 0-2 Urine WBC 0-5 Ur Squamous Epith Cells 0-2 Urine Bacteria None Seen Hyaline Casts 0-2 Urine Opiates Screen Not Detected Urine Fentanyl Screen Not Detected Ur Barbiturates Screen POSITIVE H Ur Phencyclidine Scrn Not Detected Ur Amphetamines Screen Not Detected U Benzodiazepines Scrn Not Detected Urine Cocaine Screen Not Detected U Marijuana (THC) Screen POSITIVE H 08/22/22 08/23/22 08/23/22 14:48 06:31 06:31 WBC 6.6 RBC 3.80 L Hgb 12.6 L Hct 35.6 L MCV 93.7 MCH 33.2 H MCHC 35.4 RDW 12.7 Plt Count 99 L MPV 10.4 Immature Gran % (Auto) 0.3 Neut % (Auto) 61.3 Lymph % (Auto) 24.3 [place] % (Auto) 10.4 Eos % (Auto) 2.9 Baso % (Auto) 0.8 Lymph # (Auto) 1.6 [place] # (Auto) 0.7 Eos # (Auto) 0.2 Baso # (Auto) 0.1 Abs Immat Gran (auto) 0.02 Absolute Neuts (auto) 4.1 Absolute Nucleated RBC 0.000 Nucleated RBC % (auto) 0.0 Sodium 137 Potassium 2.9 L Chloride 102 Carbon Dioxide 22 Anion Gap 16 BUN 3 L Creatinine 0.73 Estim Creat Clear Calc 109.7 Estimated GFR > 60 Random Glucose 90 Lactic Acid F/U @ 2Hr 1.7 Calcium 8.7 Magnesium 1.3 L* Total Bilirubin 2.6 H Direct Bilirubin 0.8 H AST 109 H ALT 46 H Alkaline Phosphatase 77 Total Creatine Kinase 670 H Total Protein 6.5 Albumin 3.5 Urine RBC Urine WBC Ur Squamous Epith Cells Urine Bacteria Hyaline Casts Urine Opiates Screen Urine Fentanyl Screen Ur Barbiturates Screen Ur Phencyclidine Scrn Ur Amphetamines Screen U Benzodiazepines Scrn Urine Cocaine Screen U Marijuana (THC) Screen Discharge Plan Discharge Anticipated Discharge Date/Time: 08/23/22 14:04 Patient Disposition: Left Against Medical Advice Discharge Diagnosis: alcohol withdrawal seizure low magnesium low potassium alcohol dependence Referrals: Prachi Nguyễn NP [Primary Care Provider] - 1 Week Discharge Medications: Continued allopurinol 100 mg tablet 100 mg PO DAILY vitamin B complex [B Complex-Vitamin B12] Tablet 1 tab PO DAILY folic acid 1 mg tablet 1 mg PO DAILY Discontinued meloxicam 15 mg tablet 15 mg PO DAILY Discharge Orders: Discharge Order (Routine); Ordered 08/23/22 Ordered By: Sri Reza Care Plan Goals: see below Health Concerns: alcohol withdrawal, seizure low magnesium low potassium abnormal liver function tests Plan of Treatment: left against medical advice Assessment: see discharge summary Discharge Date/Time: 08/23/22 14:05
--- NOTE | 2022-08-23 14:32 | MHC.CM.PN ---
Patient has left AMA.
== END 2022-08-23 14:05 | disposition left against medical advice (07) | DRG 770 ==
LOC: HO.ED 11:21 → HO.EDOVER 12:45 → HO.IMC 19:22
PROVIDERS: Physician Assistant; Admitting Provider Physician Assistant Medical; Emergency Provider Emergency Medicine; PCP Nurse Practitioner Family; Visit Provider Physician Assistant Medical
DX: F10.239 Alcohol dependence with withdrawal, unspecified (principal); D61.818 Other pancytopenia; E87.21 Acute metabolic acidosis; R56.9 Unspecified convulsions; E83.42 Hypomagnesemia; E87.6 Hypokalemia; F17.210 Nicotine dependence, cigarettes, uncomplicated; Z91.041 Radiographic dye allergy status; Y90.1 Blood alcohol level of 20-39 mg/100 ml; Z71.6 Tobacco abuse counseling; Z79.899 Other long term (current) drug therapy
CPT/HCPCS: 36415; 70450; 72125; 80048; 80076; 80307; 81001; 82550; 82803; 83605; 83735; 85025; 85610; 85730; 93005; 99285; J1650; J2060; J2560; J3411; J3475

== ENCOUNTER 2025-02-23 10:50 | Inpatient (IN) | payer OTHER, SELFPAY ==
--- NOTE | ~2025-02-23 | CT_ITS ---
CLINICAL HISTORY: sz CT head without contrast Comparison: 08/22/2022 Findings: No intracranial mass, midline shift, hydrocephalus, or acute hemorrhage. No CT evidence of acute ischemia. Visualized paranasal sinuses and mastoid air cells normal. Orbits unremarkable. No skull fracture Impression: 1. No acute intracranial abnormalities. This document has been electronically signed by: Robert Flores MD on 02/23/2025 19:35:38
--- NOTE | ~2025-02-23 | XR_ITS ---
EXAMINATION: XR CHEST CLINICAL INFORMATION: hypoxia, cough , smoker COMPARISON: 04/20/2022 TECHNIQUE: AP portable view of the chest was obtained. FINDINGS: The cardiac, hilar, and mediastinal contours are normal. There is a large retrocardiac hiatus hernia. Lungs are diffusely hyperaerated, hyperlucent, with mildly flattened hemidiaphragms, findings suggesting COPD. Lungs otherwise clear. The There is no pneumothorax or effusion. No focal osseous or soft tissue abnormality. XR/XR chest 1V IMPRESSION: 1. COPD. No active superimposed disease. 2. Large retrocardiac hiatus hernia. Electronically signed by: Juan Francisco Hoskins MD 02/23/2025 12:47 PM [facility]
[2025-02-23 11:03] VITALS: BP 120/81; BP 142/82; PULSE 95; PULSE 97; RESP 16; TEMP 36.4; O2SAT 92; BMI 19.8
[2025-02-23 11:10] VITALS: BP 120/81; PULSE 97; RESP 16; TEMP 36.4; O2SAT 92
--- NOTE | 2025-02-23 11:18 | ED_ITS ---
HPI - Nausea/Vomiting/Diarrhea General Chief complaint: Nausea/Vomiting/Diarrhea Stated complaint: DIARRHEA POSSIBLE SEIZURE Time Seen by Provider: 02/23/25 11:04 History of Present Illness ED Provider: danny GUILLAUME Narrative: Author / Clinician: Jonh Michael MD (Emergency Medicine) Chief Complaint Rectal bleeding with diarrhea; abdominal pain; upper body muscle spasms; recent seizure. History of Present Illness Patient presents from home via EMS for evaluation of new-onset blood in stool and abdominal pain. He reports watery diarrhea for the past 2 days. Earlier today he noted blood mixed with the stool and in the toilet bowl; denies a gush of bright red blood. He denies any prior episodes of rectal bleeding and has never undergone colonoscopy. Associated abdominal pain is located on the right side and bilaterally in the lower abdomen. He denies rectal pain, hemorrhoids, or bulging sensation. Additionally, the patient complains of diffuse upper body muscle pain described as ?spasms.? Pain worsens with deep inspiration. He denies shortness of breath and denies cough. Approximately 3 hours prior to arrival his witnessed a seizure; he reports a similar alcohol-related seizure about 8 months ago. He does not take anti- seizure medication. Last alcohol intake was ?about 30 seconds? before EMS arrived; he drinks beer daily. He smokes marijuana but denies cigarette use. Denies fever, chills, headache, vomiting, dysuria, or prior history of DVT/PE, heart disease, heart failure, asthma, COPD, emphysema, or need for supplemental oxygen. Review of Systems - Constitutional: No fever or chills. - HEENT: Denies headaches. - Respiratory: No shortness of breath or cough; pain with deep inspiration. - Cardiovascular: Denies chest pain or known heart disease. - Gastrointestinal: Diarrhea x2 days, blood in stool today, right-sided and bilateral lower abdominal pain. Denies vomiting; eating and drinking okay. - Genitourinary: Urinating normally. - Musculoskeletal: Upper body muscle spasms/pain. - Neurologic: Seizure ~3 hours ago; no current seizure activity. - Hematologic: Denies history of blood clots (DVT/PE). Physical Examination Vital Signs: Measure Value ------- SpO2 92?93 % (noted during evaluation) Physical Exam: - Limited exam details not documented in transcript. Emergency Department Course Ongoing monitoring; oxygen saturation observed fluctuating between 92?93 %. Additional course details not documented in transcript. Past Medical History - Alcohol-related seizures. Medications None. Social History - Alcohol: drinks beer daily; last intake immediately prior to EMS arrival. - Tobacco: denies cigarette use. - Marijuana: uses. - Lives with Related Data Previous Rx's ?Medication ?Instructions ?Recorded magnesium oxide 400 mg (241.3 mg 800 mg (2 x 400 mg (2 41.3 mg 02/26/25 magnesium) tablet magnesium)) PO BIDPC #20 tab s Allergies Allergy/AdvReac Type Severity Reaction Status Date / Time Iodinated Contrast Media (IV Allergy Cough Verified 02/23/25 11:05 Contrast Dye) PMFSH Past Medical History Medical History Alcohol dependence Alcohol withdrawal seizure Social History Social History Household Members: Significant Other Household Members Other:: girlfriend Housing: Other Housing Other:: [facility] Do you presently have visiting nurse or other home services: No Alcohol intake: current Alcohol intake frequency: 3 or more drinks per day Alcohol type: hard liquor Comment: pt refuses high fall interventions Patient Tobacco Use Status: Never used Tobacco Tobacco use type: Cigarette e-Cigarette/Vaping Use: Never Used Second Hand Smoke Exposure: No Substance Use Type: Marijuana Advance Directives Date on File: 02/17/22 service: No Physical Exam 2 Exam: Exam: EXAM: Gen: Alert, awake, well appearing, No major trauma no convulsive activity, no tremor. Slurred speech, intoxicated with alcohol. Perhaps a dehydrated looking. Head: Atraumatic Eyes: Anicteric, Normal conjunctiva. ENT: Moist mucosa, no pallor. Neck: Supple. Respiratory: Breathing comfortably, No distress.Clear to auscultation bilaterally, symmetric chest expansion, No wheeze, rales, ronchi. Cardiovascular: Regular rate and rhythm. No murmurs or rub. Well perfused periphery, warm extremities. No edema. Abdominal: Soft, no objective distension. No palpable masses or obvious organomegaly. No focal tenderness, no guarding, no rebound tenderness or other peritoneal findings. : No flank tenderness. Neuro: Alert. Gross movement of all extremities intact. 5/5 strength upper and lower extremities, bilateral. No neck rigidity or meningismus. No tongue fasciculation does appear intoxicated with alcohol. Vital signs: See flowsheet Vital Signs: Vital Signs: Last Vital Signs Temp 98.6 F 02/26/25 11:02 Pulse 116 H 02/26/25 11:02 Resp 16 02/26/25 11:02 BP 100/60 02/26/25 11:02 Pulse Ox 96 02/26/25 11:02 O2 Del Method Room Air 02/26/25 11:02 BMI result Body Mass Index 19.8 Medications Administered Discontinued Medications Generic Name Dose Route Start Last Admin Trade Name Freq PRN Reason Stop Dose Admin Chlordiazepoxide HCl 50 mg 02/23/25 14:09 02/23/25 14:47 Chlordiazepoxide Hcl 25 Mg Capsule PO 02/23/25 14:10 50 mg ONCE ONE Administration Diazepam 5 mg 02/23/25 11:18 02/23/25 12:37 Diazepam 10 Mg/2 Ml Cartridge IVPUSH 02/23/25 11:19 5 mg STAT STA Administration Diphenhydramine HCl 25 mg 02/23/25 23:24 02/23/25 23:33 Diphenhydramine Hcl 50 Mg/Ml Vial IVPUSH 02/23/25 23:25 25 mg ONCE ONE Administration Folic Acid 1 mg 02/24/25 09:00 02/26/25 08:13 Folic Acid 1 Mg Tablet PO 1 mg DAILY LUÍS Administration Sodium Chloride 1,000 mls @ 999 mls/hr 02/23/25 11:30 02/23/25 14:50 Ns IV 02/23/25 12:30 Infused .Q1H1M LUÍS Infusion Thiamine HCl 500 mg/ Sodium 105 mls @ 210 mls/hr 02/23/25 11:18 02/23/25 13:37 Chloride IV 02/23/25 11:47 Infused ONCE ONE Infusion Magnesium Sulfate 2 gm in 50 mls @ 150 mls/hr 02/23/25 12:56 02/23/25 14:51 Magnesium Sulfate/H2o IV 02/23/25 13:15 Infused ONCE ONE Infusion Magnesium Sulfate 2 gm in 50 mls @ 25 mls/hr 02/24/25 08:20 02/24/25 15:57 Magnesium Sulfate/H2o IV 02/24/25 10:19 Infused ONCE ONE Infusion Magnesium Sulfate 2 gm in 50 mls @ 25 mls/hr 02/25/25 11:30 02/25/25 14:47 Magnesium Sulfate/H2o IV 02/25/25 13:29 Infused ONCE ONE Infusion Magnesium Sulfate 2 gm in 50 mls @ 25 mls/hr 02/26/25 07:40 02/26/25 11:48 Magnesium Sulfate/H2o IV 02/26/25 09:39 Infused ONCE ONE Infusion Magnesium Oxide 400 mg 02/24/25 08:30 02/25/25 16:40 Magnesium Oxide 400 Mg Tablet PO 400 mg BIDPC LUÍS Administration Magnesium Oxide 800 mg 02/26/25 08:30 02/26/25 08:13 Magnesium Oxide 400 Mg Tablet PO 800 mg BIDPC LUÍS Administration Phenobarbital 45 mg 02/24/25 09:00 02/25/25 20:33 Phenobarbital 15 Mg Tablet PO 02/25/25 21:01 45 mg BID LUÍS Administration Phenobarbital 30 mg 02/26/25 09:00 02/26/25 08:13 Phenobarbital 30 Mg Tablet PO 02/27/25 21:01 30 mg BID LUÍS Administration Phenobarbital Sodium 280 mg 02/23/25 18:15 02/23/25 18:31 Phenobarbital Sodium 130 Mg/Ml Im Once IM 02/23/25 18:16 280 mg ONCE ONE Administration Phenobarbital Sodium 210 mg 02/23/25 22:00 02/24/25 01:11 Phenobarbital Sodium 130 Mg/Ml Vial Im Q3hx2 IM 02/24/25 01:01 210 mg Q3H LUÍS Administration Sodium Chloride 3 ml 02/24/25 00:00 02/26/25 08:14 0.9 % Sodium Chloride Flush 3 Ml Syringe IVFLUSH 3 ml QSHIFT LUÍS Administration Thiamine HCl 100 mg 02/23/25 20:10 02/26/25 08:13 Thiamine Hcl 100 Mg Tablet PO 100 mg DAILY LUÍS Administration Medical Decision Making Medical Decision Making MDM Narrative: 59-year-old male, alcohol use disorder, reported seizure prior to arrival, witness by his who arrived by EMS who got the report from his spouse. Daily alcohol drinking, possible red blood in the rectum, one episode today, intoxicated, alcohol level quite high. Certainly could have had withdrawal seizure, but it would seem unlikely with such a high alcohol level. He has no current active tremor, tongue for circulation, or active withdrawal, but it's difficult to evaluate his daily use which could be much higher. Electrolyte abnormality present. Initially started with benzos followed by Librium, but patient was agreeable to inpatient detox given the seizure described at home could be high risk, so phenobarbital provided. Differential Diagnosis GI bleed, alcohol withdrawal, electrolyte derangement, dehydration. Lab Data MDM Lab Attestation statement: I reviewed the patient's lab results. 02/26/25 05:58 02/25/25 08:53 Labs: Lab Results 02/23/25 Range/Units 12:29 WBC 11.8 H (4.8-10.8) X10*3/uL RBC 3.83 L (4.60-5.80) X10*6/uL Hgb 11.7 L (14.0-18.0) g/dl Hct 34.5 L (42.0-52.0) % MCV 90.1 (80.0-98.0) fL MCH 30.5 (27.0-33.0) pg MCHC 33.9 (31.0-36.0) g/dl RDW 15.1 (11.0-16.0) % Plt Count 203 D (160-400) X10*3/uL MPV 7.9 L (9.4-12.4) fL Immature Gran % (Auto) 0.4 (0.0-0.4) % Neut % (Auto) 76.4 H (45-73) % Lymph % (Auto) 14.2 L (20-40) % Appling % (Auto) 7.5 (2-11) % Eos % (Auto) 0.8 (0-4) % Baso % (Auto) 0.7 (0-2) % Lymph # (Auto) 1.7 (1.2-4.9) X10*3/uL Appling # (Auto) 0.9 (0.1-1.2) X10*3/uL Eos # (Auto) 0.1 (0.0-0.4) X10*3/uL Baso # (Auto) 0.1 (0.0-0.2) X10*3/uL Abs Immat Gran (auto) 0.05 H (0.00-0.03) X10*3/uL Absolute Neuts (auto) 9.0 H (2.0-8.3) x10*3/uL Absolute Nucleated RBC 0.000 (0.0-0.012) X10*3/uL Nucleated RBC % (auto) 0.0 (0.0-0.2) /100WBC PT 13.2 (11.2-13.5) SEC INR 1.1 (0.9-1.1) APTT 36.3 H (26.7-34.1) SEC Sodium 142 (135-145) mmol/L Potassium 4.0 (3.3-5.1) mmol/L Chloride 106 (96-108) mmol/L Carbon Dioxide 26 (22-29) mmol/L Anion Gap 14 (12-20) BUN 8 L (9-16) mg/dL Creatinine 0.71 (0.5-1.4) mg/dL Estim Creat Clear Calc 109.3 Estimated GFR > 60 Random Glucose 92 (60-115) mg/dL Calcium 8.7 (8.4-10.2) mg/dL Magnesium 1.4 L* (1.6-2.6) mg/dL Total Bilirubin 0.4 (0.0-1.0) mg/dL AST 65 H (5-37) U/L ALT 21 (0-40) U/L Alkaline Phosphatase 90 (39-117) U/L Total Protein 7.8 (6.5-8.0) g/dL Albumin 3.1 L (3.5-5.0) g/dL Ethyl Alcohol 331 H* mg/dL Independent Interpretation I performed an independent interpretation of an: EKG (Sidus rhythm, no-schemic changes, normal intervals and axis. ) Discharge Plan Discharge Clinical Impression: Alcohol withdrawal syndrome Patient Disposition: Admitted As Inpatient Interventions: Admission Worksheet (ED) Last Done: 02/23/25 21:09 Discharge Date/Time: 02/24/25 16:44
[2025-02-23 12:36] LABS: Hematocrit 34.5 % (42.0-52.0); Hemoglobin 11.7 g/dl (14.0-18.0); Imm Gran Abs Auto 0.05 X10*3/uL (0.00-0.03); Imm Gran Pct Auto 0.4 % (0.0-0.4); Lymphocytes Absolute Auto 1.7 X10*3/uL (1.2-4.9); Mean Corpuscular HGB Conc 33.9 g/dl (31.0-36.0); Mean Corpuscular Hemoglobin 30.5 pg (27.0-33.0); Mean Corpuscular Volume 90.1 fL (80.0-98.0); NRBC Abs Auto 0.000 X10*3/uL (0.0-0.012); NRBC Pct Auto 0.0 /100WBC (0.0-0.2); Platelet Count 203 X10*3/uL (160-400); Red Blood Count 3.83 X10*6/uL (4.60-5.80); White Blood Count 11.8 X10*3/uL (4.8-10.8)
[2025-02-23 12:37] LABS: MANUAL DIFF FLAG NO
[2025-02-23] MEDS: diazePAM 10 MG/2 ML CARTRIDGE 5 MG IVPUSH (12:37)
[2025-02-23 12:42] LABS: INTERNATIONAL NORM RATIO 1.1 (0.9-1.1); Prothrombin Time 13.2 SEC (11.2-13.5)
[2025-02-23 12:45] LABS: Partial Thromboplastin Time 36.3 SEC (26.7-34.1)
[2025-02-23 12:56] LABS: Alanine Aminotransferase 21 U/L (0-40); Albumin Level 3.1 g/dL (3.5-5.0); Alkaline Phosphatase 90 U/L (39-117); Anion Gap 14 (12-20); Aspartate Amino Transferase 65 U/L (5-37); Blood Urea Nitrogen 8 mg/dL (9-16); Calcium 8.7 mg/dL (8.4-10.2); Carbon Dioxide 26 mmol/L (22-29); Chloride 106 mmol/L (96-108); Creatinine Clr Calc Pharmacy 109.3; Estimated Glomerular Filt Rate > 60; Magnesium 1.4 mg/dL (1.6-2.6); Potassium 4.0 mmol/L (3.3-5.1); Sodium 142 mmol/L (135-145); Total Protein 7.8 g/dL (6.5-8.0)
--- OUTSIDE RECORDS SUMMARY | 2025-02-23 13:49 | XMS_ITS | Clinical Summary ---
Author Organization [facility]. Address [address] [address] Phone Care Team Providers Care Building Construction Teacher Name Role Phone Tank Mello MD Primary Care Provider [phone] Allergies Active Allergy Reactions Criticality Noted Date Comments Pork Allergy 10/06/2023 Medications No known medications Active Problems Problem Noted Date Diagnosed Date Alcohol withdrawal-induced convulsion 01/04/2024 Gout 01/04/2024 Gastroesophageal reflux disease 01/04/2024 Jaundice 01/04/2024 Weight decreased 01/04/2024 Microscopic hematuria 12/30/2023 Immunizations Immunization Administration Dates Next Due Influenza, Unspecified 11/07/2011 Corrine SARS-COV-2 06/03/2021,06/05/2020 Tdap 02/19/2021 Social History Tobacco Use Types Packs/Day Years Used Date Smoking Tobacco: Every Day Cigarettes Tobacco Cessation:Ready to Q uit: Not Asked; Counseling Given: Not Answered Alcohol Use Standard Drinks/Week Comments Yes 0 (1 standard drink = 0.6 oz pur e alcohol) Sex and Gender Information Value Date Recorded Sex Assigned at Not on file Legal Sex Male 11:54 AM EDT Gender Identity Not on file Sexual Orientation Not on file Last Filed Vital Signs Vital Sign Reading Time Taken Comments Blood Pressure 124/82 12/30/2023 10:43 AM EDT Pulse 78 12/30/2023 10:43 AM EDT Temperature - - Respiratory Rate - - Oxygen Saturation 99% 12/30/2023 10:43 AM EDT Inhaled Oxygen Concentration - - Weight 63.3 kg (139 lb 9.6 oz) 12/30/2023 10:43 AM EDT Height - - Body Mass Index - - Plan of Treatment Health Maintenance Due Date Last Done Comments Pneumococcal Vaccine: 50+ Ye ars (1 of 2 - PCV) 09/13/1983 Colorectal Cancer Screening: Annual FOBT 2013 Colorectal Cancer Screening: Colonoscopy 2013 Colorectal Cancer Screening: Sigmoidoscopy 2013 Influenza Vaccine (#1) 2024 11/07/2011 Hepatitis B Vaccine Aged Out No longe r eligible based on patient's age to complete this topic Insurance [address] [place], [place] [id number] [place] [address] [address] [place] [address] [facility] Care Teams Building Construction Teacher Relationship Specialty Start Date End Date Tank Mello MD [address] [address] PCP - General Nephrology 12/30/23
--- OUTSIDE RECORDS SUMMARY | 2025-02-23 13:49 | XMS_ITS | Clinical Summary ---
Author Organization [facility] Address [address] [place] [address] Phone Care Team Providers Care Adjunct Professor Of Voice Name Role Phone Prachi Nguyễn Primary Care Provider Allergies Active Allergy Reactions Criticality Noted Date Comments Pork Derived (Porcine) Unknown 01/06/2025 Medications Vitamin D3 50 mcg (2,000 unit) tablet Take 1 tablet (2,000 Units total) by mouth 1 (one) time each day. 09/06/2024 Active Vitamin B-12 500 mcg tablet Take 1 tablet (500 mcg total) by mouth 1 (one) time each day. 10/16/2024 Active folic acid (FOLVITE) 1 mg tablet Take 1 tablet (1 mg total) by mouth 1 (one) time each day. 01/01/2025 Active gabapentin (NEURONTIN) 300 mg capsule Take 1 capsule (300 mg total) by mouth 2 (two) times a day. 11/20/2024 Active hydrOXYzine HCL (ATARAX) 25 mg tablet Take 1 tablet (25 mg total) by mouth every 6 (six) hours if needed for anxiety. 12/27/2024 Active loratadine (CLARITIN) 10 mg tablet Take 1 tablet (10 mg total) by mouth 1 (one) time each day. 09/05/2024 Active yvddzjex-xrk-vx rrous fumarate 15 mg iron tablet Take 1 tablet by mouth 1 (one) time each day. 01/01/2025 Active nicotine (NICODERM CQ) 21 mg/[address] 1 patch on the skin 1 (one) time each day at the same time. 12/27/2024 Active thiamine 100 mg tablet Take 1 tablet (100 mg total) by mouth 1 (one) time each day. 01/01/2025 Active pyridoxine (B-6) 50 mg tablet Take 1 tablet (50 mg total) by mouth 1 (one) time each day. 01/01/2025 Active Active Problems Problem Noted Date Diagnosed Date Alcohol withdrawal 01/07/2025 Encounters Date Type Department Care Team Description 01/06/2025 7:05 PM EDT - 01/10/2025 11:15 AM EST Hospital Encounter [facility] [address] [place] [address] Francisco Mora MD Kokkinos, Erika, MD Bukalo, Nermina, MD Rasul, Yar M, MD Closed displaced fracture of greater trochanter of left femur, initial encounter ([facility] V24, [facility] V28) (Primary Dx); Alcohol use disorder; Frequent falls Discharge Disposition: Long Term Facility from Last 3 Months Social History Tobacco Use Types Packs/Day Years Used Date Smoking Tobacco: Never Smokeless Tobacco: Never Tobacco Cessation:Counseling Given: Not Answered Food Risk Answer Date Recorded Within the past 12 months we worried whether our food would run out before we got money to buy more. Not asked 01/10/2025 Within the past 12 months th e food we bought just didn't last and we didn't have money to get more. Not asked 01/10/2025 Interpersonal Safety Answer Date Record ed Physical Abuse Unrecognized value 01/07/2025 Verbal Abuse Unrecognized value 01/07/2025 Sex and Gender Information Value Date Recorded Sex Assigned at Not on file Legal Sex Male 8:38 PM EST Gender Identity Not on file Sexual Orientation Not on file Last Filed Vital Signs Vital Sign Reading Time Taken Comments Blood Pressure 114/71 01/10/2025 7:50 AM EST Pulse 93 01/10/2025 7:50 AM EST Temperature 37.3 C (99.1 F) 01/10/2025 7:50 AM EST Respiratory Rate 18 01/10/2025 7:50 AM EST Oxygen Saturation 99% 01/10/2025 7:50 AM EST Inhaled Oxygen Concentration - - Weight 71.2 kg (157 lb) 01/06/2025 7:16 PM EDT Height 188 cm (6' 2 ) 01/06/2025 7:16 PM EDT Body Mass Index 20.16 01/06/2025 7:16 PM EDT Plan of Treatment Health Maintenance Due Date Last Done Comments Colorectal Cancer Screening: Colonoscopy 1965 Hepatitis A Vaccines (1 of 2 - Risk 2-dose series) 09/13/1983 Pneumococcal Vaccine: 50+ Years (1 of 2 - PCV) 09/13/1983 Zoster Vaccines (1 of 2) 2014 Cholesterol Screening (Lipid Panel) 02/07/2022 HIV Screening 02/07/2022 Hepatitis C Screening 02/07/2022 Depression Screening 03/08/2024 COVID-19 Vaccine (3 - 2024-2 6 season) 2024 06/03/2021, 06/05/2020 Influenza Vaccine (#1) 2024 11/07/2011 Social Influencers of Health Screening 01/10/2026 01/10/2025 DTaP,Tdap,and Td Vaccines (2 - Td or Tdap) 02/19/2031 02/19/2021 RSV Immunization Adult Patients (1 - 1-dose 75+ series) 09/13/2039 HIB Vaccines Aged Out No longer eligi ble based on patient's age to complete this topic HPV Vaccines Aged Out No longer eligi ble based on patient's age to complete this topic Hepatitis B Vaccines Aged Out No long er eligible based on patient's age to complete this topic IPV Vaccines Aged Out No longer eligi ble based on patient's age to complete this topic MMR Vaccines Aged Out No longer eligi ble based on patient's age to complete this topic Meningococcal ACWY Vaccine Aged Out N o longer eligible based on patient's age to complete this topic Meningococcal B Vaccine Aged Out No l onger eligible based on patient's age to complete this topic RSV Immunization Patients Under 20 months Aged Out No longer eligible b ased on patient's age to complete this topic Varicella Vaccines Aged Out No longer eligible based on patient's age to complete this topic Procedures Procedure Name Priority Date/Time Associated Diagnosis Comments POCT GLUCOSE BLOOD Routine 01/09/2025 9: 10 AM EST COMPLETE BLOOD COUNT Routine 01/08/2025 5:37 AM EST PHOSPHORUS Add-On 01/08/2025 5:36 AM EST MAGNESIUM Add-On 01/08/2025 5:36 AM EST BASIC METABOLIC PANEL Routine 01/08/2025 5:[address] PELVIS WO CONTRAST STAT 01/06/2025 9:07 PM EDT XR HIP 2-3 VIEWS LEFT STAT 01/06/2025 8:23 PM EDT CBC WITH AUTO DIFFERENTIAL STAT 01/06/2025 7:58 PM EDT ETHANOL STAT 01/06/2025 7:58 PM EDT MAGNESIUM STAT 01/06/2025 7:58 PM EDT CBC AND DIFFERENTIAL STAT 01/06/2025 7:58 PM EDT COMPREHENSIVE METABOLIC PANEL STAT 01/06/2025 7:58 PM EDT from Last 3 Months Results * (ABNORMAL) POCT Glucose, blood (01/09/2025 9:10 AM EST) [facility] Glucose POCT 107(H) 70 - 100 mg/dL 01/09/2025 9:11 AM EST [facility] Blood Capillary blood specimen / Unknown 01/09/2025 9:10 AM EST 01/09/2025 9:12 AM EST Royal Swift MD LAB POINT OF CARE TE ST DOCKED DEVICE UNSOLICITED RESULTS Final Result [facility] [address] [place] [address], [place] [phone] * (ABNORMAL) Complete blood count (01/08/2025 5:37 AM EST) [facility] WBC 10.0 4.8 - 10.8 K/mcL LAB HEMETOLOGY METHOD 01/08/2025 7:01 AM [facility] RBC 3.50(L) 4.50 - 5.50 M/mcL LAB HEMETOLOGY METHOD 01/08/2025 7:01 AM [facility] Hemoglobin 11.0(L) 13.5 - 17.5 g/dL LAB HEMETOLOGY METHOD 01/08/2025 7:01 AM [facility] Hematocrit 33.7(L) 42.0 - 54.0 % LAB HEMETOLOGY METHOD 01/08/2025 7:01 AM [facility] MCV 97.1 79.0 - 98.0 FL LAB HEMETOLOGY METHOD 01/08/2025 7:01 AM [facility] MCH 31.7 27.0 - 32.0 pcg LAB HEMETOLOGY METHOD 01/08/2025 7:01 AM [facility] MCHC 32.6 32.0 - 37.0 g/dL LAB HEMETOLOGY METHOD 01/08/2025 7:01 AM [facility] RDW 13.8 11.0 - 15.0 % LAB HEMETOLOGY METHOD 01/08/2025 7:01 AM [facility] Platelets 474(H) 130 - 400 K/mcL LAB HEMETOLOGY METHOD 01/08/2025 7:01 AM [facility] MPV 8.3 7.0 - 11.0 FL LAB HEMETOLOGY METHOD 01/08/2025 7:01 AM [facility] NRBC 0.0 <1.0 % LAB HEMETOLOGY METHOD 01/08/2025 7:01 AM [facility] NRBC Absolute 0.00 <0.10 K/mcL LAB HEMETOLOGY METHOD 01/08/2025 7:01 AM [facility] Blood Venous blood specimen / Unknown Venipuncture / Unknown 01/08/2025 5:37 AM EST 01/08/2025 6:31 AM EST Lisa Medley MD LAB BLOOD ORDERABLES Final Res ult Performing Organization Address City/[facility] [address]/ZIP Co de Phone Number [facility] [address] [place] [address], [place] [phone] * Phosphorus (01/08/2025 5:36 AM EST) Phosphorus 3.8 2.5 - 4.5 mg/dL LAB CHEMISTRY METHOD 01/08/2025 8:13 AM EST [facility] Blood Venous blood specimen / Unknown Venipuncture / Unknown 01/08/2025 5:36 AM EST 01/08/2025 6:30 AM EST Wero MAHARAJ LAB BLOOD ORDERABLES Katherine l Result Performing Organization Address [facility] [address]/[facility] Co de Phone Number [facility] [address] [place] [address], [place] [phone] * (ABNORMAL) Magnesium (01/08/2025 5:36 AM EST) Only the most recent of2 resultswithin the time period is included. Magnesium 1.4(L) 1.9 - 2.6 mg/dL LAB CHEMISTRY METHOD 01/08/2025 8:13 AM EST [facility] Blood Venous blood specimen / Unknown Venipuncture / Unknown 01/08/2025 5:36 AM EST 01/08/2025 6:30 AM EST Wero MAHARAJ LAB BLOOD ORDERABLES Katherine l Result Performing Organization Address City/[facility] [address]/ZIP Co de Phone Number [facility] [address] [place] [address], [place] [phone] * (ABNORMAL) Basic metabolic panel (01/08/2025 5:36 AM EST) Sodium 139 133 - 145 mmol/L LAB CHEMISTRY METHOD 01/08/2025 7:21 AM [facility] Potassium 4.3 3.5 - 5.5 mmol/L LAB CHEMISTRY METHOD 01/08/2025 7:21 AM [facility] Chloride 105 96 - 110 mmol/L LAB CHEMISTRY METHOD 01/08/2025 7:21 AM [facility] CO2 28 21 - 32 mmol/L LAB CHEMISTRY METHOD 01/08/2025 7:21 AM [facility] Anion Gap 6 3 - 11 LAB CHEMISTRY METHOD 01/08/2025 7:21 AM [facility] Glucose 103(H) 70 - 100 mg/dL LAB CHEMISTRY METHOD 01/08/2025 7:21 AM [facility] BUN 11 5 - 25 mg/dL LAB CHEMISTRY METHOD 01/08/2025 7:21 AM [facility] Creatinine 0.84 0.70 - 1.30 mg/dL LAB CHEMISTRY METHOD 01/08/2025 7:21 AM [facility] eGFR 100 >=60 mL/min/1. 73m2 LAB CHEMISTRY METHOD 01/08/2025 7:21 AM [facility] Comment:Calculation based on the Chronic Kidney Disease Epidemiology Collaboration (CKD-EPI) equation refit without adjustment for race. BUN/Creatinine Ratio 13.1 LAB CHEMISTRY METHOD 01/08/2025 7:21 AM [facility] Calcium 8.9 8.5 - 10.5 mg/dL LAB CHEMISTRY METHOD 01/08/2025 7:21 AM [facility] Blood Venous blood specimen / Unknown Venipuncture / Unknown 01/08/2025 5:36 AM EST 01/08/2025 6:30 AM EST us Lisa Medley MD LAB BLOOD ORDERABLES Final Res ult [facility] [address] [place] [address], [place] [phone] * CT Pelvis wo Contrast (01/06/2025 9:07 PM EDT) Anatomical Region Laterality Modality Body, Pelvis Computed Tomogra phy 01/06/2025 9:54 PM EDT Impressions 01/06/2025 9:54 PM EDT 1. A comminuted acute fracture of the left greater trochanter. This fracture best identified on coronal image 56 of series 201. The fracture spares the left intertrochanteric region of the left femur. Soft tissue swelling adjacent to the fracture site. This document has been electronically signed by: Syd Archibald DO on 01/06/2025 21:54:15 Narrative 01/06/2025 9:54 PM EDT INDICATION: Left intertrochanteric fracture?? CT pelvis without contrast Comparison: None Findings: A comminuted acute fracture of the left greater trochanter. Soft tissue swelling adjacent to the fracture site. The fracture appears to spare the left intertrochanteric region of the left femur. Degenerative changes of the bilateral hips with partial loss of joint space. Some dystrophic calcification at the inferior margin of the left femoral neck. The distal rectosigmoid colon is moderately distended with intraluminal air. No visualized bowel obstruction, pneumoperitoneum, or pneumatosis. Mucosal thickening of the bladder is likely related to underdistention, however, recommend correlating with urinalysis. Procedure Note Syd Archibald MD - 01/06/2025 INDICATION: Left intertrochanteric fracture?? CT pelvis without contrast Comparison: None Findings: A comminuted acute fracture of the left greater trochanter. Soft tissue swelling adjacent to the fracture site. The fracture appears to sparethe left intertrochanteric region of the left femur. Degenerative changes of the bilateral hips with partial loss of joint space. Some dystrophic calcification at the inferior margin of the left femoral neck. The distal rectosigmoid colon is moderately distended with intraluminal air. No visualized bowel obstruction, pneumoperitoneum, or pneumatosis. Mucosal thickening of the bladder is likely related to underdistention, however, recommend correlating with urinalysis. IMPRESSION: 1. A comminuted acute fracture of the left greater trochanter. This fracture best identified on coronal image 56 of series 201. The fracture spares the left intertrochanteric region of the left femur. Soft tissue swelling adjacent to the fracture site. This document has been electronically signed by: Syd Archibald DO on 01/06/2025 21:54:15 Francisco Mora MD IMG CT PROCEDURES Final R esult * XR Hip 2-3 Views Left (01/06/2025 8:23 PM EDT) Anatomical Region Laterality Modality Lower Extremities, Hip Left Radiograp hic Imaging 01/07/2025 7:07 AM EST Impressions 01/07/2025 7:12 AM EST Acute slightly comminuted fracture which appears to involve the greater trochanter on the left. Difficult to confirm the integrity of the distal femoral neck and remainder of the intratrochanteric proximal femur. -------- FINAL REPORT -------- Dictated By: Pee San Dictated Date: 01/07/2025 07:07 ET Assigned Physician: Pee San Reviewed and Electronically Signed By: Pee San Signed Date: 01/07/2025 07:12 ET Workstation ID: [id number] Transcribed By: Self Edit Transcribed Date: 01/07/2025 07:07 ET Narrative 01/07/2025 7:12 AM EST EXAMINATION: PELVIS LEFT HIP CLINICAL INFORMATION: Fall. Left-sided pain. Difficulty walking. COMPARISON: None. TECHNIQUE: Frontal view of the pelvis 2 views left hip FINDINGS: Pelvis: There is no disruption of the SI joints, hips or symphysis. No definite acute pelvic fracture although bone detail is limited by overlying bowel. Smooth ossification associated with the posterolateral right acetabulum. Mild to moderate narrowing superolateral right femoral acetabular joint. Numerous phleboliths. Left hip: There is a slightly comminuted fracture of the greater trochanter. No definite femoral head or neck fracture. There is marked narrowing of the superolateral left femoral acetabular joint. Procedure Note Pee San MD - 01/07/2025 EXAMINATION: PELVIS LEFT HIP CLINICAL INFORMATION: Fall. Left-sided pain. Difficulty walking. COMPARISON: None. TECHNIQUE: Frontal view of the pelvis 2 views left hip FINDINGS: Pelvis: There is no disruption of the SI joints, hips or symphysis. No definite acute pelvic fracture although bone detail is limited byoverlying bowel. Smooth ossification associated with the posterolateral right acetabulum.Mild to moderate narrowing superolateral right femoral acetabular joint. Numerous phleboliths. Left hip: There is a slightly comminuted fracture of the greater trochanter. No definite femoral head or neck fracture. There is marked narrowing ofthe superolateral left femoral acetabular joint. IMPRESSION: Acute slightly comminuted fracture which appears to involve the greatertrochanter on the left. Difficult to confirm the integrity of the distalfemoral neck and remainder of the intratrochanteric proximal femur. -------- FINAL REPORT -------- Dictated By: Pee San Dictated Date: 01/07/2025 07:07 ET Assigned Physician: Pee San Reviewed and Electronically Signed By: Pee San Signed Date: 01/07/2025 07:12 ET Workstation ID: [id number] Transcribed By: Self Edit Transcribed Date: 01/07/2025 07:07 ET us Francisco Mora MD IMG XR PROCEDURES Final R esult * (ABNORMAL) CBC auto differential (01/06/2025 7:58 PM EDT) [facility] WBC 10.3 4.8 - 10.8 [facility] HEMETOLOGY METHOD 01/06/2025 8:32 PM EDT [facility] RBC 3.50(L) 4.50 - 5.50 M/mcL LAB HEMETOLOGY METHOD 01/06/2025 8:32 PM EDT [facility] Hemoglobin 11.0(L) 13.5 - 17.5 g/dL LAB HEMETOLOGY METHOD 01/06/2025 8:32 PM EDT [facility] Hematocrit 33.9(L) 42.0 - 54.0 % LAB HEMETOLOGY METHOD 01/06/2025 8:32 PM EDT [facility] MCV 97.4 79.0 - 98.0 FL LAB HEMETOLOGY METHOD 01/06/2025 8:32 PM EDT [facility] MCH 31.6 27.0 - 32.0 pcg LAB HEMETOLOGY METHOD 01/06/2025 8:32 PM EDT [facility] MCHC 32.4 32.0 - 37.0 g/dL LAB HEMETOLOGY METHOD 01/06/2025 8:32 PM EDT [facility] RDW 14.1 11.0 - 15.0 % LAB HEMETOLOGY METHOD 01/06/2025 8:32 PM [facility] Platelets 552(H) 130 - 400 K/mcL LAB HEMETOLOGY METHOD 01/06/2025 8:32 PM EDT [facility] MPV 8.7 7.0 - 11.0 FL LAB [facility]EMETOLOGY [facility] NRBC 0.0 <1.0 % LAB HEMETOLOGY METHOD 01/06/2025 8:32 PM [facility] NRBC Absolute 0.00 <0.10 K/mcL LAB HEMETOLOGY METHOD 01/06/2025 8:32 PM T [facility] Neutrophils Relative 65.9 % LAB HEMETOLOGY METHOD 01/06/2025 8:32 PM EDT [facility] Lymphocytes Relative 23.1 % LAB HEMETOLOGY METHOD 01/06/2025 8:32 PM [facility] Monocytes Relative 6.8 % LAB HEMETOLOGY [facility] Eosinophils Relative 2.8 % LAB HEMETOLOGY METHOD 01/06/2025 8:32 PM EDT [facility] Basophils Relative 1.1 % LAB HEMETOLOGY METHOD 01/06/2025 8:32 PM EDT [facility] Immature Granulocytes Relative 0.3 % LAB HEMETOLOGY METHOD 01/06/2025 8:32 PM EDT [facility] Neutrophils Absolute 6.78 1.50 - 7.00 K/mcL LAB HEMETOLOGY METHOD 01/06/2025 8:32 PM EDT [facility] Lymphocytes Absolute 2.37 1.00 - 5.00 K/mcL LAB HEMETOLOGY METHOD 01/06/2025 8:32 PM EDT [facility] Monocytes Absolute 0.70 0.20 - 1.00 K/mcL LAB HEMETOLOGY METHOD 01/06/2025 8:32 PM EDT [facility] Eosinophils Absolute 0.29 0.00 - 0.50 K/mcL LAB HEMETOLOGY METHOD 01/06/2025 8:32 PM EDT [facility] Basophils Absolute 0.11 0.00 - 0.20 K/mcL LAB HEMETOLOGY METHOD 01/06/2025 8:32 PM EDT [facility] Immature Granulocytes Absolute 0.03 0.00 - 0.03 K/mcL LAB HEMETOLOGY METHOD 01/06/2025 8:32 PM EDT [facility] Blood Venous blood specimen / Unknown Venipuncture / Unknown 01/06/2025 7:58 PM EDT 01/06/2025 8:20 PM EDT us Francisco Mora MD LAB BLOOD ORDERABLES Katherine plunkett Result [facility] [address] [place] [address], * (ABNORMAL) Ethanol (01/06/2025 7:58 PM EDT) [facility] Ethanol Level 86(H) 0 - 10 mg/dL LAB CHEMISTRY METHOD 01/06/2025 8:48 PM EDT [facility] Blood Venous blood specimen / Unknown Venipuncture / Unknown 01/06/2025 7:58 PM EDT 01/06/2025 8:20 PM EDT us Francisco Mora MD LAB BLOOD ORDERABLES Katherine l Result [facility] [address] [place] [address], [place] [phone] * (ABNORMAL) Comprehensive Metabolic Panel (CMP) (01/06/2025 7:58 PM EDT) [facility] Sodium 140 133 - 145 mmol/L LAB CHEMISTRY METHOD 01/06/2025 8:48 PM [facility] Potassium 4.2 3.5 - 5.5 mmol/L LAB CHEMISTRY METHOD 01/06/2025 8:48 PM [facility] Comment:Hemolysis present Chloride 109 96 - 110 mmol/L LAB CHEMISTRY METHOD 01/06/2025 8:48 PM [facility] CO2 23 21 - 32 mmol/L LAB CHEMISTRY METHOD 01/06/2025 8:48 PM [facility] Anion Gap 8 3 - 11 LAB CHEMISTRY METHOD 01/06/2025 8:48 PM [facility] Glucose 100 70 - 100 mg/dL LAB CHEMISTRY METHOD 01/06/2025 8:48 PM [facility] BUN 7 5 - 25 mg/dL LAB CHEMISTRY METHOD 01/06/2025 8:48 PM [facility] Creatinine 0.68(L) 0.70 - 1.30 mg/dL LAB CHEMISTRY METHOD 01/06/2025 8:48 PM [facility] eGFR 106 >=60 mL/min/1. 73m2 LAB CHEMISTRY METHOD 01/06/2025 8:48 PM EDT [facility] Comment:Calculation based on the Chronic Kidney Disease Epidemiology Collaboration (CKD-EPI) equation refit without adjustment for race. BUN/Creatinine Ratio 10.3 LAB CHEMISTRY METHOD 01/06/2025 8:48 PM EDT [facility] Calcium 8.9 8.5 - 10.5 mg/dL LAB CHEMISTRY METHOD 01/06/2025 8:48 PM EDT [facility] AST (SGOT) 135(H) 10 - 42 unit/L LAB CHEMISTRY METHOD 01/06/2025 8:48 PM EDT [facility] ALT (SGPT) 90(H) 10 - 60 unit/L LAB CHEMISTRY METHOD 01/06/2025 8:48 PM EDT [facility] Alkaline Phosphatase 110 42 - 121 unit/L LAB CHEMISTRY METHOD 01/06/2025 8:48 PM EDT [facility] Total Protein 7.7 6.0 - 8.0 g/dL LAB CHEMISTRY METHOD 01/06/2025 8:48 PM EDT [facility] Albumin 3.1(L) 3.2 - 5.0 g/dL LAB CHEMISTRY METHOD 01/06/2025 8:48 PM EDT [facility] Total Bilirubin 0.3 0.0 - 1.4 mg/dL LAB CHEMISTRY METHOD 01/06/2025 8:48 PM EDT [facility] Blood Venous blood specimen / Unknown Venipuncture / Unknown 01/06/2025 7:58 PM EDT 01/06/2025 8:20 PM EDT us Francisco Mora MD LAB BLOOD ORDERABLES Katherine plunkett Result [facility] [address] [place] [address], from Last 3 Months Insurance [employer] Advance Directives * Full Code - Default (Latest Code Status on File) Date Activated Date Inactivated Comments 01/07/2025 8:40 AM 01/10/2025 1:20 PM This is orde r is used when code status has not been discussed with the patient, or code status is otherwise unknown/unconfirmed To update the patient's code status, place a code status order. Do not modify or discontinue any currently active code status orders. Care Teams Adjunct Professor Of Voice Relationship Specialty Start Date End Date Prahci Nguyễn [address] [place] [id number] PCP - General 01/07/25
[2025-02-23] MEDS: Magnesium Sulfate/H2O 2 GM/50 ML PIGGYBACK IV (14:05)
[2025-02-23 14:27] VITALS: BP 111/74; PULSE 106; RESP 18; O2SAT 95
[2025-02-23 18:30] VITALS: BP 116/76; PULSE 98; RESP 16; O2SAT 95
[2025-02-23] MEDS: PHENobarbitaL sodium 130 MG/ML IM ONCE 280 MG IM (18:31)
--- NOTE | 2025-02-23 20:14 | PM.IMHP ---
History of Present Illness Date of Service: 02/23/25 Chief Complaint: Seizure, bloody bowel motion A 59 years old with PMH of Alcohol use disorder with prior alcohol-related seizure (approximately 8 months ago), gout with no other reported problems who presented from home via EMS for evaluation of new-onset hematochezia and abdominal pain. He reports drinking daily unclear amount of Beer as he does not count but at least 6 packs has been complaining of watery diarrhea for the past 2 days, with blood mixed in the stool and toilet bowl noted earlier today. He denies large-volume or brisk bright red bleeding, rectal pain, hemorrhoids, or prior similar episodes. Abdominal pain is described as right-sided and bilateral lower abdominal discomfort. Approximately 3 hours prior to arrival, the patient?s friend witnessed a seizure. The patient reports a prior alcohol-related seizure about 8 months ago and is not on antiepileptic therapy. He endorses daily alcohol use, with last intake immediately prior to EMS arrival. He also uses marijuana and denies cigarette smoking. He reports at least 8 incidents of (seizure), usually happens while he is drinking where he might (pass out) for sometime, longest 2 hours. He is not aware of any abnormal movements in his body, losing urine\stool control. I did not meet his friend to get more details about that event. He denies fever, chills, headache, vomiting, dysuria, chest pain, or shortness of breath. In the ED, the patient appeared acutely intoxicated with slurred speech (ethanol level ~300) and clinically dehydrated, with mild hypomagnesemia. He was treated with IV fluids, thiamine, and magnesium, and initially received benzodiazepines. Given concern for alcohol-related seizure and risk of complex alcohol withdrawal, he agreed to admission and was treated with phenobarbital 10 mg/kg. He remained hemodynamically stable, with no evidence of ongoing or brisk GI bleeding and a stable hemoglobin, and no traumatic injuries were identified. Review of Systems Review of Systems: Yes all other systems are reviewed and are negative [facility] Medical History Alcohol dependence Alcohol withdrawal seizure Social History Household Members: Significant Other Household Members Other:: girlfriend Housing: Other Housing Other:: mobile home Do you presently have visiting nurse or other home services: No Alcohol intake: current Alcohol intake frequency: 3 or more drinks per day Alcohol type: hard liquor Comment: pt refuses high fall interventions Patient Tobacco Use Status: Never used Tobacco Tobacco use type: Cigarette Smoked in Last 30 Days: Yes e-Cigarette/Vaping Use: Never Used Second Hand Smoke Exposure: No Use of substances other than those prescribed or required for medical reasons: Yes Substance Use Type: Marijuana Advance Directives: Yes Advance Directives on File: Yes Advance Directives Date on File: 02/17/22 Do you have a plan to hurt others: No Plan service: No Meds Allergies Allergy/AdvReac Type Severity Reaction Status Date / Time Iodinated Contrast Media (IV Allergy Cough Verified 02/23/25 11:05 Contrast Dye) Active Medications: Current Medications Acetaminophen (Acetaminophen 325 Mg Tablet) 650 mg PO Q6H PRN PRN Reason: Pain, Mild 1-3,fever,headache Folic Acid (Folic Acid 1 Mg Tablet) 1 mg PO DAILY [facility] Ondansetron HCl (Ondansetron Hcl 4 Mg/2 Ml Vial) 4 mg IVPUSH Q8H PRN PRN Reason: Nausea and Vomiting Pharmacy Consult (Consult Rx Etoh Phenob Im/Po) 1 each MISCELLANE ONCE PRN; Protocol PRN Reason: Consult order Phenobarbital (Phenobarbital 15 Mg Tablet) 45 mg PO BID [facility] Stop: 02/25/25 21:01 Phenobarbital (Phenobarbital 30 Mg Tablet) 30 mg PO BID [facility] Stop: 02/27/25 21:01 Phenobarbital (Phenobarbital 15 Mg Tablet) 15 mg PO DAILY [facility] Stop: 03/01/25 09:01 Phenobarbital Sodium (Phenobarbital Sodium 130 Mg/Ml Vial Im Q3hx2) 210 mg IM Q3H [facility] Stop: 02/24/25 01:01 Sodium Chloride (0.9 % Sodium Chloride Flush 3 Ml Syringe) 3 ml IVFLUSH QSHIFT [facility] Thiamine HCl (Thiamine Hcl 100 Mg Tablet) 100 mg PO DAILY [facility] Home Medications ?Medication ?Instructions ?Recorded ?Confirmed ?Last Taken ?Type allopurinol 100 mg tablet 100 mg PO DAILY 08/22/22 08/22/22 4 Days Ago History ~08/18/22 folic acid 1 mg tablet 1 mg PO DAILY 08/22/22 08/22/22 4 Days Ago History ~08/18/22 meloxicam 15 mg tablet 15 mg PO DAILY 08/22/22 08/22/22 4 Days Ago History ~08/18/22 vitamin B complex (B 1 tab PO DAILY 08/22/22 08/22/22 4 Days Ago History Complex-Vitamin B12 tablet) ~08/18/22 Physical Exam Vital Signs and Narrative: Vital Signs: Last Vital Signs Temp 97.5 F 02/23/25 11:10 Pulse 98 02/23/25 18:30 Resp 16 02/23/25 18:30 BP 116/76 02/23/25 18:30 Pulse Ox 95 02/23/25 18:30 O2 Del Method Room Air 02/23/25 18:30 BMI result Body Mass Index 19.8 Const: Other: Constitutional : Awake, interactive, not in distress Neck : Normal inspection, Supple Cardiovascular : RRR, no JVP, no lower extremity edema Respiratory : good bilateral air entry, no crackles, wheezes or rhonchi Gastrointestinal: soft, lax, Normal bowel sounds, Non tender Skin : Warm, Dry Neurological : Alert & oriented to time and place, No focal deficit , mild intentional tremor bilaterally, CN 2-12 within normal Results Labs 02/23/25 12:29 02/23/25 12:29 Labs: Laboratory Results - last 24 hr 02/23/25 12:29 MCV 90.1 MCH 30.5 MCHC 33.9 RDW 15.1 Plt Count 203 D MPV 7.9 L Immature Gran % (Auto) 0.4 Neut % (Auto) 76.4 H Lymph % (Auto) 14.2 L [place] % (Auto) 7.5 Eos % (Auto) 0.8 Baso % (Auto) 0.7 Lymph # (Auto) 1.7 [place] # (Auto) 0.9 Eos # (Auto) 0.1 Baso # (Auto) 0.1 Abs Immat Gran (auto) 0.05 H Absolute Neuts (auto) 9.0 H Absolute Nucleated RBC 0.000 Nucleated RBC % (auto) 0.0 PT 13.2 INR 1.1 APTT 36.3 H Anion Gap 14 Estim Creat Clear Calc 109.3 Estimated GFR > 60 Random Glucose 92 Calcium 8.7 Magnesium 1.4 L* Total Bilirubin 0.4 AST 65 H ALT 21 Alkaline Phosphatase 90 Total Protein 7.8 Albumin 3.1 L Ethyl Alcohol 331 H* Imaging Radiologist's Impressions: Impressions Chest X-Ray 02/23/25 12:33 IMPRESSION: 1. COPD. No active superimposed disease. 2. Large retrocardiac hiatus hernia. Electronically signed by: Juan Francisco Hoskisn MD 02/23/2025 12:47 PM EST RP Assessment and Plan (1) Alcohol withdrawal syndrome: Status: Acute (2) Alcohol use disorder, severe, dependence: Status: Acute (3) Hypomagnesemia: Status: Acute (4) Seizure: Status: Acute (5) BRBPR (bright red blood per rectum): Status: Acute Plan A 59 years old with PMH of Alcohol use disorder with prior alcohol-related seizure (approximately 8 months ago), gout with no other reported problems who presented from home via EMS for evaluation of new-onset hematochezia and abdominal pain. Seizure event Unclear but sound less likely an epileptic seizure event but more of passing out from drinking; [employer]ATOR depressios\dehydration & postural hypotension, Hypoglycemia , alcohol related seizure Monitor Tele , O2 sat CT head negative for acute fidings Correct electrolytes PRN Benzo IV for breakthrough seizure Will hold on Neurology evaluation for now Alcohol abuse and risk of withdrawal seizure Chronic daily drinker , lives alone, lost mother and son over the last few months Phenobarb protocol PRN Diazepam Thiamine, Folic acid Addiction team eval Acute hypomagnesemia related to drinking replacement given, follow levels BRBPR & RUQ pain the pain resolved at time of evaluation , reports regular bowel movements daily at home. small bright blood with stool did not have colonoscopy before , Hb stable though hold on GI Eval now, will need outpatient work up follow H&H monitor for any recurrence DVT PPx SCDs The patient will need 2 overnight hospital stay for treatment of alcohol withdrawal with seizure evaluation and acute hypomagenesemia pending further evaluation and treatment Quality Stroke Does the patient have a stroke diagnosis?: No VTE Prior VTE?: No VTE Risk Level:: Medical - moderate - high VTE Device Contraindication: N/A - Device Ordered VTE Drug Contraindication: Treatment Not Indicated
--- NOTE | 2025-02-23 20:56 | PHA.MEDREC ---
Pharmacy Consult ? Medication Reconciliation Pharmacy has completed the medication reconciliation.Patient states he is not currently taking any medications at home
[2025-02-23 21:52] VITALS: BP 129/92; PULSE 112; RESP 22; O2SAT 94
[2025-02-23] MEDS: PHENobarbitaL sodium 130 MG/ML VIAL IM Q3Hx2 210 MG IM (21:53)
--- NOTE | 2025-02-23 23:34 | PC.NURSE ---
Pt began reporting mild nausea, itching all over, reported feeling jittery , and did have a slight tremor. Dr. Segura was notified and ordered IV Benadryl. Pt reports nausea had resolved. He does still feel the itching sensation all over. Denies pain. Patient medicated as charted. Plan of care ongoing.
[2025-02-24 01:10] VITALS: BP 141/95; PULSE 102; RESP 16
[2025-02-24] MEDS: PHENobarbitaL sodium 130 MG/ML VIAL IM Q3Hx2 210 MG IM (01:11)
[2025-02-24] MEDS: 0.9 % Sodium Chloride Flush 3 ML SYRINGE IVFLUSH ×3 (01:11→21:05)
[2025-02-24 04:32] VITALS: BP 157/97; PULSE 94; RESP 15; TEMP 36.6; O2SAT 95
[2025-02-24 04:40] LABS: MANUAL DIFF FLAG NO
[2025-02-24 05:04] LABS: Sodium 137 mmol/L (135-145)
[2025-02-24 05:05] LABS: Anion Gap 15 (12-20); Blood Urea Nitrogen 5 mg/dL (9-16); Calcium 9.1 mg/dL (8.4-10.2); Carbon Dioxide 25 mmol/L (22-29); Chloride 101 mmol/L (96-108); Creatinine Clr Calc Pharmacy 110.9; Estimated Glomerular Filt Rate > 60; Potassium 4.1 mmol/L (3.3-5.1)
[2025-02-24 05:06] LABS: Alanine Aminotransferase 26 U/L (0-40); Alkaline Phosphatase 113 U/L (39-117); Aspartate Amino Transferase 83 U/L (5-37); Total Protein 9.2 g/dL (6.5-8.0)
[2025-02-24 05:07] LABS: Albumin Level 3.5 g/dL (3.5-5.0)
[2025-02-24 05:12] LABS: Magnesium 1.3 mg/dL (1.6-2.6)
--- NOTE | 2025-02-24 05:30 | PC.NURSE ---
Lab called with critical magnesium of 1.3. notified via tiger @ [id number] and provider read/replied back @ [id number]. No new orders at this time.
[2025-02-24 05:42] LABS: Hematocrit 36.5 % (42.0-52.0); Hemoglobin 12.3 g/dl (14.0-18.0); Imm Gran Abs Auto 0.04 X10*3/uL (0.00-0.03); Imm Gran Pct Auto 0.4 % (0.0-0.4); Lymphocytes Absolute Auto 2.1 X10*3/uL (1.2-4.9); Mean Corpuscular HGB Conc 33.7 g/dl (31.0-36.0); Mean Corpuscular Hemoglobin 30.4 pg (27.0-33.0); Mean Corpuscular Volume 90.1 fL (80.0-98.0); NRBC Abs Auto 0.020 X10*3/uL (0.0-0.012); NRBC Pct Auto 0.2 /100WBC (0.0-0.2); Platelet Count 254 X10*3/uL (160-400); Red Blood Count 4.05 X10*6/uL (4.60-5.80); White Blood Count 11.4 X10*3/uL (4.8-10.8)
[2025-02-24 06:36] VITALS: BP 123/81; PULSE 99; RESP 21
--- NOTE | 2025-02-24 08:20 | PC.NURSE ---
Pt has been sleepind soundly since this RN arrival. NSR on monitor at 100. skin pwd. chest rise noted. NAD. Will allow to sleep untill am medical information officer.
[2025-02-24] MEDS: PHENobarbital 15 MG TABLET 45 MG PO ×2 (09:08→21:02)
[2025-02-24] MEDS: Magnesium Sulfate/H2O 2 GM/50 ML PIGGYBACK IV (09:08)
[2025-02-24 09:19] VITALS: BP 111/78; PULSE 97; RESP 18; TEMP 37.1; O2SAT 95
--- NOTE | 2025-02-24 09:20 | PC.NURSE ---
Pt is axox3. NAD. reports feeling better. sitting up for Breakfast. Awaits bed on floor. no complaints at this time. no Sz activity and withdrawal sz are absent per patient.
--- NOTE | 2025-02-24 14:44 | MHC.RECOVRN ---
Met with Nitin in ED14 after receiving an addiction consult for evaluation of AUD. Discussed alcohol use, risk factors, tx history and recovery supports (See recovery eval for more info).? Pt stated he no longer has any withdrawal symptoms and feels much improved.? Discussed readiness for change and treatment options. Pt is interested in discussing PITO with the addiction medicine provider. He declined a baseball coach referral stating There's no way a baseball coach can help me. I need other measures .? Discussed harm reduction briefly - pt stated he has difficulty setting limits and is all or nothing so would prefer to try full abstinence. Pt considering PITO and outpatient tx appointment (final decision TBD).? ACS team will continue to f/u with pt while on M/T and provide recovery support as needed.?
--- NOTE | 2025-02-24 15:04 | HO.PM.IMPN ---
Subjective Subjective Date of Service: 02/24/25 Review of Systems Follow up alcohol related seizure feeling better but high risk for withdrawal no pain, nausea or vomiting Physical Exam Exam: Exam: Appearing in no acute distress lung sounds are clear to auscultation heart regular rate rhythm, clear S1, S2 positive bowel sounds, abdomen is soft, nontender neuro patient is alert x3, no focal deficits Vital Signs: Vital Signs: Last Vital Signs Temp 98.7 F 02/24/25 09:19 Pulse 97 02/24/25 09:19 Resp 18 02/24/25 09:19 BP 111/78 02/24/25 09:19 Pulse Ox 95 02/24/25 09:19 O2 Del Method Room Air 02/24/25 09:19 BMI result Body Mass Index 19.8 Objective Data Active Medications Acetaminophen (Acetaminophen 325 Mg Tablet) 650 mg PO Q6H PRN PRN Reason: Pain, Mild 1-3,fever,headache Diazepam (Diazepam 10 Mg/2 Ml Cartridge) 5 mg IVPUSH ONCE PRN PRN Reason: Breakthrough Seizure Folic Acid (Folic Acid 1 Mg Tablet) 1 mg PO DAILY [facility] Last Admin: 02/24/25 09:07 Dose: 1 mg Documented By: GERMAINE Magnesium Oxide (Magnesium Oxide 400 Mg Tablet) 400 mg PO BIDPC [facility] Last Admin: 02/24/25 09:07 Dose: 400 mg Documented By: GERMAINE Ondansetron HCl (Ondansetron Hcl 4 Mg/2 Ml Vial) 4 mg IVPUSH Q8H PRN PRN Reason: Nausea and Vomiting Pharmacy Consult (Consult Rx Etoh Phenob Im/Po) 1 each MISCELLANE ONCE PRN; Protocol PRN Reason: Consult order Phenobarbital (Phenobarbital 15 Mg Tablet) 45 mg PO BID [facility] Stop: 02/25/25 21:01 Last Admin: 02/24/25 09:08 Dose: 45 mg Documented By: GERMAINE Phenobarbital (Phenobarbital 30 Mg Tablet) 30 mg PO BID [facility] Stop: 02/27/25 21:01 Phenobarbital (Phenobarbital 15 Mg Tablet) 15 mg PO DAILY [facility] Stop: 03/01/25 09:01 Sodium Chloride (0.9 % Sodium Chloride Flush 3 Ml Syringe) 3 ml IVFLUSH QSHIFT [facility] Last Admin: 02/24/25 08:19 Dose: Not Given Documented By: GERMAINE Non-Admin Reason: Med Not Available Thiamine HCl (Thiamine Hcl 100 Mg Tablet) 100 mg PO DAILY [facility] Last Admin: 02/24/25 09:07 Dose: 100 mg Documented By: GERMAINE Labs 02/24/25 04:28 02/24/25 04:28 Labs: Laboratory Results - last 24 hr 02/24/25 04:28 MCV 90.1 MCH 30.4 MCHC 33.7 RDW 15.2 Plt Count 254 D MPV 9.1 L Immature Gran % (Auto) 0.4 Neut % (Auto) 71.1 Lymph % (Auto) 18.0 L [place] % (Auto) 8.7 Eos % (Auto) 1.2 Baso % (Auto) 0.6 Lymph # (Auto) 2.1 [place] # (Auto) 1.0 Eos # (Auto) 0.1 Baso # (Auto) 0.1 Abs Immat Gran (auto) 0.04 H Absolute Neuts (auto) 8.1 Absolute Nucleated RBC 0.020 H Nucleated RBC % (auto) 0.2 Anion Gap 15 Estim Creat Clear Calc 110.9 Estimated GFR > 60 Random Glucose 98 Calcium 9.1 Magnesium 1.3 L* Total Bilirubin 0.9 AST 83 H ALT 26 Alkaline Phosphatase 113 D Total Protein 9.2 H D Albumin 3.5 Assessment and Plan (1) Alcohol withdrawal syndrome: Status: Acute Plan 59 years old with PMH of Alcohol use disorder with prior alcohol-related seizure (approximately 8 months ago), gout with no other reported problems who presented from home via EMS for evaluation of new-onset hematochezia and abdominal pain. Seizure event likely alcohol related Monitor on Tele, O2 sat CT head negative for acute findings PRN Benzo IV for breakthrough seizure Alcohol abuse and risk of withdrawal seizure Chronic daily drinker, lives alone, lost mother and son over the last few months high risk for withdrawal, Phenobarb protocol PRN Diazepam Thiamine, Folic acid Addiction team eval Acute hypomagnesemia related to drinking replete BRBPR & RUQ pain the pain resolved at time of evaluation , reports regular bowel movements daily at home. small bright blood with stool did not have colonoscopy before , Hb stable though hold on GI Eval now, will need outpatient work up follow H&H monitor for any recurrence DVT PPx SCDs The patient will need 2 overnight hospital stay for treatment of alcohol withdrawal with seizure evaluation and acute hypomagenesemia pending further evaluation and treatment Quality Stroke Does the patient have a stroke diagnosis?: No VTE Prior VTE?: No VTE Risk Level:: Medical - moderate - high VTE Device Contraindication: N/A - Device Ordered VTE Drug Contraindication: Treatment Not Indicated
[2025-02-24 16:00] VITALS: BP 139/95; PULSE 97; RESP 18; TEMP 36.6; O2SAT 98
[2025-02-24 20:00] VITALS: BP 139/92; PULSE 109; RESP 20; TEMP 37.4; O2SAT 96
[2025-02-25] VITALS (7 sets, daily range): BP systolic 104–150; BP diastolic 66–96; PULSE 102–117; RESP 16–18; TEMP 36.4–37.2; O2SAT 92–96
[2025-02-25] MEDS: 0.9 % Sodium Chloride Flush 3 ML SYRINGE IVFLUSH ×2 (07:55→15:59)
[2025-02-25] MEDS: PHENobarbital 15 MG TABLET 45 MG PO ×2 (07:55→20:33)
--- NOTE | 2025-02-25 08:05 | MHC.CM.PN ---
PATIENT COMES FROM HOME ALONE. INDEPENDENT W/ ALL CARE. DENIES USE OF DME OR SERVICES. PCP DEE ALAN MOUNTER NO HCP. CM PROVIDED EDUCATION AND OFFERED ASSISTANCE. PATIENT DECLINED. +ETOH MISUSE - RECOVERY TEAM FOLLOWING. PER RN AMBULATING SAFELY. DP: GOAL IS HOME SELF CARE VIA SHUTTLE TRANSPORT.
[2025-02-25 09:36] LABS: Anion Gap 13 (12-20); Blood Urea Nitrogen 8 mg/dL (9-16); Calcium 9.1 mg/dL (8.4-10.2); Carbon Dioxide 25 mmol/L (22-29); Chloride 99 mmol/L (96-108); Creatinine Clr Calc Pharmacy 119.4; Estimated Glomerular Filt Rate > 60; Magnesium 1.5 mg/dL (1.6-2.6); Potassium 3.6 mmol/L (3.3-5.1); Sodium 133 mmol/L (135-145)
--- NOTE | 2025-02-25 11:48 | P.PNIM_ITS ---
Subjective Subjective Date of Service: 02/25/25 Review of Systems Follow up alcohol related seizure feeling better but high risk for withdrawal still low magnesium no pain, nausea or vomiting Physical Exam 2 Exam: Exam: Appearing in no acute distress lung sounds are clear to auscultation heart regular rate rhythm, clear S1, S2 positive bowel sounds, abdomen is soft, nontender neuro patient is alert x3, no focal deficits Vital Signs: Vital Signs: Last Vital Signs Temp 98.4 F 02/25/25 07:53 Pulse 102 H 02/25/25 07:53 Resp 18 02/25/25 07:53 BP 120/82 02/25/25 07:53 Pulse Ox 95 02/25/25 07:53 O2 Del Method Room Air 02/25/25 07:53 BMI result Body Mass Index 19.8 Objective Data Active Medications Acetaminophen (Acetaminophen 325 Mg Tablet) 650 mg PO Q6H PRN PRN Reason: Pain, Mild 1-3,fever,headache Diazepam (Diazepam 10 Mg/2 Ml Cartridge) 5 mg IVPUSH ONCE PRN PRN Reason: Breakthrough Seizure Folic Acid (Folic Acid 1 Mg Tablet) 1 mg PO DAILY [facility] Last Admin: 02/25/25 08:02 Dose: 1 mg Documented By: YUE Magnesium Sulfate (Magnesium Sulfate/H2o) 2 gm in 50 mls @ 25 mls/hr IV ONCE ONE Stop: 02/25/25 13:29 Magnesium Oxide (Magnesium Oxide 400 Mg Tablet) [facility] Last Admin: 02/25/25 07:55 Dose: 400 mg Documented By: YUE Ondansetron HCl (Ondansetron Hcl 4 Mg/2 Ml Vial) 4 mg IVPUSH Q8H PRN PRN Reason: Nausea and Vomiting Pharmacy Consult (Consult Rx Etoh Phenob Im/Po) 1 each MISCELLANE ONCE PRN; Protocol PRN Reason: Consult order Phenobarbital (Phenobarbital 15 Mg Tablet) 45 mg PO BID [facility] Stop: 02/25/25 21:01 Last Admin: 02/25/25 07:55 Dose: 45 mg Documented By: YUE Phenobarbital (Phenobarbital 30 Mg Tablet) 30 mg PO BID [facility] Stop: 02/27/25 21:01 Phenobarbital (Phenobarbital 15 Mg Tablet) 15 mg PO DAILY [facility] Stop: 03/01/25 09:01 Sodium Chloride (0.9 % Sodium Chloride Flush 3 Ml Syringe) 3 ml IVFLUSH QSHIFT [facility] Last Admin: 02/25/25 07:55 Dose: 3 ml Documented By: YUE Thiamine HCl (Thiamine Hcl 100 Mg Tablet) 100 mg PO DAILY [facility] Last Admin: 02/25/25 07:55 Dose: 100 mg Documented By: YUE Labs 02/24/25 04:28 02/25/25 08:53 Labs: Laboratory Results - last 24 hr 02/25/25 08:53 Anion Gap 13 Estim Creat Clear Calc 119.4 Estimated GFR > 60 Random Glucose 93 Calcium 9.1 Magnesium 1.5 L Assessment and Plan (1) Alcohol withdrawal syndrome: Status: Acute Plan 59 years old with PMH of Alcohol use disorder with prior alcohol-related seizure (approximately 8 months ago), gout with no other reported problems who presented from home via EMS for evaluation of new-onset hematochezia and abdominal pain. Acute hypomagnesemia related to drinking continue to replete Seizure event likely alcohol related Monitor on Tele, O2 sat CT head negative for acute findings PRN Benzo IV for breakthrough seizure Alcohol abuse and risk of withdrawal seizure Chronic daily drinker, lives alone, lost mother and son over the last few months high risk for withdrawal, Phenobarb protocol PRN Diazepam Thiamine, Folic acid Addiction team eval BRBPR & RUQ pain the pain resolved at time of evaluation , reports regular bowel movements daily at home. small bright blood with stool did not have colonoscopy before , Hb stable though hold on GI Eval now, will need outpatient work up follow H&H monitor for any recurrence DVT PPx SCDs The patient will need 2 overnight hospital stay for treatment of alcohol withdrawal with seizure evaluation and acute hypomagenesemia pending further evaluation and treatment Quality Stroke Does the patient have a stroke diagnosis?: No VTE Prior VTE?: No VTE Risk Level:: Medical - moderate - high VTE Device Contraindication: N/A - Device Ordered VTE Drug Contraindication: Treatment Not Indicated
[2025-02-25] MEDS: Magnesium Sulfate/H2O 2 GM/50 ML PIGGYBACK IV (12:41)
--- NOTE | 2025-02-25 16:16 | MHC.RECOVRN ---
Met with pt in f/u. Pt resting in bed calmly . Denied withdrawal symptoms. CIWAs 1, 1, 1. Continues to want to discuss PITO with provider. Pt did not have much else to add and was allowed to rest.
[2025-02-26 03:48] VITALS: BP 128/79; PULSE 108; RESP 18; TEMP 36.7; O2SAT 94
[2025-02-26 06:35] LABS: Hematocrit 35.7 % (42.0-52.0); Hemoglobin 12.1 g/dl (14.0-18.0); Mean Corpuscular HGB Conc 33.9 g/dl (31.0-36.0); Mean Corpuscular Hemoglobin 31.0 pg (27.0-33.0); Mean Corpuscular Volume 91.5 fL (80.0-98.0); NRBC Abs Auto 0.020 X10*3/uL (0.0-0.012); NRBC Pct Auto 0.2 /100WBC (0.0-0.2); Platelet Count 216 X10*3/uL (160-400); Red Blood Count 3.90 X10*6/uL (4.60-5.80); White Blood Count 12.6 X10*3/uL (4.8-10.8)
[2025-02-26 06:50] LABS: Magnesium 1.5 mg/dL (1.6-2.6)
[2025-02-26 07:30] VITALS: BP 134/76; PULSE 112; RESP 16; TEMP 36.7; O2SAT 96
[2025-02-26] MEDS: Magnesium Sulfate/H2O 2 GM/50 ML PIGGYBACK IV (08:13)
[2025-02-26] MEDS: 0.9 % Sodium Chloride Flush 3 ML SYRINGE IVFLUSH (08:14)
--- NOTE | 2025-02-26 09:23 | P.DS_ITS ---
DS: Providers Provider Date of admission: 02/23/25 20:05 Date of discharge: 02/26/25 Primary care physician: Prachi Nguyễn NP Consults: 02/23/25 20:25 Addiction Medicine Provider Routine Consulting Provider: Addiction Covering Reason for consultation: alcohol abuse, lost family members recently. DS: Diagnosis Discharge Diagnosis (1) Alcohol withdrawal syndrome: Status: Acute DS: Summary Hospital Course Hospital Course: History and physical as per admitting provider. A 59 years old with PMH of Alcohol use disorder with prior alcohol-related seizure (approximately 8 months ago), gout with no other reported problems who presented from home via EMS for evaluation of new-onset hematochezia and abdominal pain. He reports drinking daily unclear amount of Beer as he does not count but at least 6 packs has been complaining of watery diarrhea for the past 2 days, with blood mixed in the stool and toilet bowl noted earlier today. He denies large-volume or brisk bright red bleeding, rectal pain, hemorrhoids, or prior similar episodes. Abdominal pain is described as right-sided and bilateral lower abdominal discomfort. Approximately 3 hours prior to arrival, the patient?s friend witnessed a seizure. The patient reports a prior alcohol-related seizure about 8 months ago and is not on antiepileptic therapy. He endorses daily alcohol use, with last intake immediately prior to EMS arrival. He also uses marijuana and denies cigarette smoking. He reports at least 8 incidents of (seizure), usually happens while he is drinking where he might (pass out) for sometime, longest 2 hours. He is not aware of any abnormal movements in his body, losing urine\stool control. I did not meet his friend to get more details about that event. He denies fever, chills, headache, vomiting, dysuria, chest pain, or shortness of breath.In the ED, the patient appeared acutely intoxicated with slurred speech (ethanol level ~300) and clinically dehydrated, with mild hypomagnesemia. He was treated with IV fluids, thiamine, and magnesium, and initially received benzodiazepines. Given concern for alcohol-related seizure and risk of complex alcohol withdrawal, he agreed to admission and was treated with phenobarbital 10 mg/kg. He remained hemodynamically stable, with no evidence of ongoing or brisk GI bleeding and a stable hemoglobin, and no traumatic injuries were identified. 59-year-old man treated for alcohol withdrawal with withdrawal seizure. Patient reports that he has a chronic daily drinker, he has been staying with a friend. Treated with phenobarbital protocol, thiamine, folic acid. CT head was negative for any acute findings. No need for treatment of seizures, patient has to abstain from alcohol use. Patient should seek outpatient resources for assistance with stopping alcohol use Acute hypomagnesemia. Secondary to alcohol use. Repleted with IV NPO, continue taking magnesium orally for the next few days. Bright red blood per rectum and right upper quadrant pain, resolved quickly. No further bleeding episodes and H&H has remained normal and he has not required any blood transfusion. Time Attestation Discharge Coordination Time (in mins): 45 Quality: Safe Use of Opioids Does Pt have an Active Cancer Diagnosis on the Problem List?: No Quality: Stroke Does the patient have a stroke diagnosis?: No Physical Exam Exam: Exam: Appearing in no acute distress head is normocephalic atraumatic eyes pupils are PERRLA sclera is anicteric mouth throat mucous membranes are intact and moist neck is supple no lymphadenopathy, no JVD noted lung sounds are clear to auscultation heart regular rate rhythm, clear S1, S2 positive bowel sounds, abdomen is soft, nontender neuro patient is alert x3, no focal deficits Vital Signs: Vital Signs: Last Vital Signs Temp 98.1 F 02/26/25 07:30 Pulse 112 H 02/26/25 07:30 Resp 16 02/26/25 07:30 BP 134/76 02/26/25 07:30 Pulse Ox 96 02/26/25 07:30 O2 Del Method Room Air 02/26/25 07:30 BMI result Body Mass Index 19.8 DS: Data Data Completed and Pending Completed studies during hospitalization [Text1]: Procedures Detoxification Services for Substance Abuse Treatment (08/22/22) Labs on day of discharge: Laboratory Results - last 24 hr 02/25/25 02/26/25 08:53 05:58 WBC 12.6 H RBC 3.90 L Hgb 12.1 L Hct 35.7 L MCV 91.5 MCH 31.0 MCHC 33.9 RDW 15.8 Plt Count 216 MPV 9.0 L Absolute Nucleated RBC 0.020 H Nucleated RBC % (auto) 0.2 Sodium 133 L Potassium 3.6 Chloride 99 Carbon Dioxide 25 Anion Gap 13 BUN 8 L Creatinine 0.65 Estim Creat Clear Calc 119.4 Estimated GFR > 60 Random Glucose 93 Calcium 9.1 Magnesium 1.5 L 1.5 L Discharge Plan Discharge Anticipated Discharge Date/Time: 02/26/25 09:19 Patient Disposition: Home, Self-Care Discharge Diagnosis: Hypomagnesemia Alcohol withdrawal with seizure Bright red blood per rectum Ref[place]: [facility] [place]Other] - 1 Day Referral Note: A referral has been sent to [facility] [place] [facility]. Please F/U every day by calling for status of your bed. If you drink, you will need to go to detox prior to [facility]. List of resources has been provided Prachi Nguyễn NP [Primary Care Provider, Medical] - 1 Week Discharge Medications: New magnesium oxide 400 mg (241.3 mg magnesium) Tablet 800 mg PO BIDPC Qty: 20 0RF Discharge Orders: Discharge Order (Routine); Ordered 02/26/25 Ordered By: Bre Kenny Diet: Advance to usual diet Activity on Discharge: As tolerated Stand Alone Forms: Patient Portal Discharge page Print Language: Nauruan Care Plan Goals: Avoid all alcoholic beverages Health Concerns: Hypomagnesemia Alcohol withdrawal with seizure Bright red blood per rectum Plan of Treatment: Follow up with primary care provider as needed Take all medications as prescribed Assessment: See discharge summary
--- NOTE | 2025-02-26 10:58 | MHC.CM.PN ---
Pt. has been medically cleared to [place], he was given a list of area shelters. Plan is self care.
[2025-02-26 11:02] VITALS: BP 100/60; PULSE 116; RESP 16; TEMP 37; O2SAT 96
--- NOTE | 2025-02-26 11:18 | MHC.RECOVRN ---
T/W met with pt. in 473-1 re: request for placement. Pt currently appropriate for [facility] placement as he has been inpt. detox x 3 days. He is declining any services outside this area. Call placed to [facility] and Referral sent as requested. Pt does not have a phone so he was educated to call [facility] daily to check on bed status as he is medically cleared and scheduled for D/C today. Folder with local resources, harm reduction, therapy, [facility] providers [facility], [facility] and [facility] provided to pt.
== END 2025-02-26 14:52 | disposition home or self-care (01) | DRG 775 ==
LOC: HO.ED 11:43 → HO.EDOVER 20:16 → HO.IMC 02-24 14:20
PROVIDERS: Admitting Provider Student in an Organized Health Care Education/Training Program; Emergency Provider Emergency Medicine; PCP Nurse Practitioner Family; Visit Provider Nurse Practitioner Acute Care
DX: F10.239 Alcohol dependence with withdrawal, unspecified (principal); F10.229 Alcohol dependence with intoxication, unspecified; R56.9 Unspecified convulsions; M10.9 Gout, unspecified; Y90.8 Blood alcohol level of 240 mg/100 ml or more; E83.42 Hypomagnesemia; Z63.4 Disappearance and death of family member; K62.5 Hemorrhage of anus and rectum
CPT/HCPCS: 36415; 70450; 71045; 80048; 80053; 80307; 83735; 85025; 85027; 85610; 85730; 99285; J1200; J2560; J3360; J3411; J3475; S9485

== ENCOUNTER → 2025-02-23 12:15 | Outpatient (BNV) | payer OTHER, SELFPAY | PROVIDERS: Emergency Provider Emergency Medicine; PCP Nurse Practitioner Family; Visit Provider Radiology Diagnostic Radiology | DX: R56.9 Unspecified convulsions (principal); J44.9 Chronic obstructive pulmonary disease, unspecified; K44.9 Diaphragmatic hernia without obstruction or gangrene | CPT/HCPCS: 70450; 71045 ==

== ENCOUNTER → 2025-02-23 20:05 | Outpatient (BNV) | payer OTHER, SELFPAY | PROVIDERS: Admitting Provider Student in an Organized Health Care Education/Training Program; Emergency Provider Emergency Medicine; PCP Nurse Practitioner Family; Visit Provider Student in an Organized Health Care Education/Training Program | DX: F10.939 Alcohol use, unspecified with withdrawal, unspecified (principal) | CPT/HCPCS: 99223; 99232 ==